=== PATIENT | male | born 1940 | race Hispanic/Latino ===

== ENCOUNTER 2020-02-20 08:04 | Emergency (ER) | payer OTHER ==
--- OUTSIDE RECORDS SUMMARY | 2020-02-20 08:15 | XMS REPORT | Continuity of Care Document ---
:1940 Author Organization [facility] t Address [address] [place] [address] Care Team Providers Name Role Phone Lele Goodwin Attending Clinician Problems This patient has no known problems. Allergies, Adverse Reactions, Alerts Allergy Allergy Status Severity Reaction(s) Onset Inactive Treating Comm ents Source Name Type Date Date Clinician Hydrocor Allergy Active Mild Itching [facility] tisone to da substanc [facility] e Group Social History Smoking Status Start Date Stop Date Source Former Smoker [facility] Medications Ordered Filled Start Stop Current Ordering Indication Dosage Frequency Signature Comments Components Source Medication Medication Date Date Medication? Clinician (SIG) Name Name alprazolam alprazolam No alprazolam [facility] 0.25 mg 0.25 mg 0.25 mg da tablet tablet tablet [facility] amlodipine amlodipine No amlodipine [place] 2.5 mg 2.5 mg 2.5 mg da tablet tablet tablet [facility] fluticasone fluticasone No fluticason [place] propionate propionate e da 50 50 propionate Medical mcg/actuati mcg/actuati 50 G roup on nasal on nasal mcg/actuat spray,suspe spray,suspe ion nasal nsion [place] nsion [place] spray,susp 1 spray 1 spray ension twice a day twice a day [place] 1 by by spray intranasal intranasal twice a route for route for day by 30 days. 30 days. intranasal route for 30 days. Fluzone Fluzone No Fluzone [facility] High-Dose High-Dose High-Dose da Medica l (PF) 180 (PF) 180 (PF) 180 Mariana up mcg/0.5 mL mcg/0.5 mL mcg/0.5 mL intramuscul intramuscul intramuscu ar syringe ar syringe lar syringe hydrochloro hydrochloro No hydrochlor [facility] thiazide 25 thiazide 25 othiazide da mg tablet mg tablet 25 mg Medi mery tablet Group losartan losartan No losartan [facility] 100 mg 100 mg 100 mg da tablet tablet tablet [facility] omeprazole omeprazole No omeprazole [facility] 20 mg 20 mg 20 mg da capsule,del capsule,del capsule,de Medical ayed ayed layed Group release release release rosuvastati rosuvastati No rosuvastat [place] n 20 mg n 20 mg in 20 mg da tablet tablet tablet [facility] Vital Signs Vital Name Observation Time Observation Value Comments Source BP Diastolic 2019-03-25 00:00:00 81 mm[Hg] [facility] Height 2019-03-25 00:00:00 68 [in_i] [facility] BMI (Body Mass 2019-03-25 00:00:00 26.2 kg/m2 [facility] Medical Index) Group BP Systolic 2019-03-25 00:00:00 161 mm[Hg] [facility] Body Weight 2019-03-25 00:00:00 172 [lb_av] [facility] BP Diastolic 2019-03-07 00:00:00 77 mm[Hg] [facility] Height 2019-03-07 00:00:00 68 [in_i] [facility] BMI (Body Mass 2019-03-07 00:00:00 26.2 kg/m2 [facility] Medical Index) Group BP Systolic 2019-03-07 00:00:00 151 mm[Hg] [facility] Body Weight 2019-03-07 00:00:00 172.2 [lb_av] [facility] BP Diastolic 2019-02-10 00:00:00 75 mm[Hg] [facility] Height 2019-02-10 00:00:00 68 [in_i] [facility] BMI (Body Mass 2019-02-10 00:00:00 26.3 kg/m2 [facility] Index) Group BP Systolic 2019-02-10 00:00:00 160 mm[Hg] [facility] Body Weight 2019-02-10 00:00:00 173 [lb_av] [facility] Procedures Procedure Date / Time Performed Performing Clinician Sour e TYMPANOMETRY 2019-03-25 00:00:00 [facility] TYMPANOMETRY 2019-03-07 00:00:00 [facility] TYMPANOMETRY 2019-02-10 00:00:00 [facility] unlisted imaging order 2019-02-10 00:00:00 [facility] Append[facility] Plan of Care Planned Activity Planned Date Details Comments Source Instructions [facility] Encounters Start End Encounter Admission Attending Care Care Encounter Source Date/Time Date/Time Type Type Clinicians Facility Department ID 2020-02-17 2020-02-17 [facility] [id number] 08:53:15 23:59:00 [facility] [id number] [facility] [id number] Specialti [id number] es 809 [place] 2020-02-17 2020-02-17 [facility] [id number] 08:53:14 23:59:00 [facility] [id number] Surgical [id number] Specialti [id number] es 809 [place] 2020-02-17 2020-02-17 [facility] [id number] 08:11:49 08:26:49 [facility] [id number] Surgical [id number] Specialti [id number] es 198 [place] 2019-03-25 2019-03-25 Yoko BLANCHARD [place] - [id number] [facility] 00:00:00 00:00:00 MD Chiara: [facility] [address] [place] [address] Group [place], [place] - [address], [place] [address] , Ph. 2019-03-07 2019-03-07 Yoko ROSARIO [place] - [id number] [facility] 00:00:00 00:00:00 MD Chiara: [address] [place], [place] - [address] [place] [place] [address] , Ph. 2019-02-10 2019-02-10 Yoko BLANCHARD [place] - [id number] [facility] 00:00:00 00:00:00 MD Chiara: [address], [place] - [address], [facility] [place] [address] , Ph. Results Test Description Test Time Test Comments Results Result Comments Source tympanogram 2019-03-07 14:40:58 Test Item Value Reference Range Interpretation Comme nts Right (test code = Right) Type C Peak is on Left Left (test code = Left) Type C Peak is on Left [facility]2019-09-30 14:40:58 Test Item Value Reference Range Interpretation Comments Right (test code = Type C Peak is on Left Right) Left (test code = Left) Type C Peak is on Left [facility]2019-09-05 09:31:46 Test Item Value Reference Range Interpretation Comments Right (test code = Type A Normal Right) Left (test code = Type C Peak is on Left Left) [facility]2019-09-05 09:31:46 Test Item Value Reference Range Interpretation Comments Right (test code = Type A Normal Right) Left (test code = Type C Peak is on Left Left) [facility]
--- OUTSIDE RECORDS SUMMARY | 2020-02-20 08:16 | XMS REPORT | Summary of Care ---
:1940 Author Organization [facility] - Health Address [address] [place] [address] Care Team Providers Name Role Phone BintarisAngelica moya Primary Care Provider [phone] Encounter Details Date Type Department Care Team Description 01/13/2020 Orders Only [facility] Doctor Unassigned, No 301 [facility] vard Name [phone] [place] [address] Allergies Active Allergy Reactions Severity Noted Date Comments Dye Hives, Itching 08/16/2015 Contrast dye Hydrocodone Hives, Itching 08/16/2015 Lisinopril Cough 09/03/2015 Iodine And Iodide Containing Products Hives 03/2016 documented as of this encounter (statuses as of 01/26/2020) Medications Medication Sig Dispensed Refills Start Date End Date Status omeprazole (PRILOSEC) 20 0 07/04/2015 Active mg capsule losartan 50 mg tablet Take 25 mg by 0 Active mouth daily. aspirin 325 mg tablet Take 325 mg by 0 Active mouth daily. DOCOSAHEXANOIC ACID/EPA Take by mouth. 0 Active (FISH OIL ORAL) levoFLOXacin 250 mg Take 500 mg by 0 Active tablet mouth every 24 (twenty-four) hours. vitamin C with kathleen hips Take 1,000 mg 0 Active (VITAMIN C) 1,000 mg by mouth daily. tablet amLODIPine 2.5 mg tablet Take 2.5 mg by 0 Active mouth daily. rosuvastatin (CRESTOR) 20 Take 20 mg by 0 Active mg tablet mouth at bedtime. documented as of this encounter (statuses as of 01/26/2020) Active Problems Problem Noted Date Chest pain 07/08/2018 Finger pain 08/16/2015 Overview: Lt, Rt. hand documented as of this encounter (statuses as of 01/26/2020) Social History Tobacco Use Types Packs/Day Years Used Date Never Smoker Smokeless Tobacco: Never Used Alcohol Use Drinks/Week oz/Week Comments Not Asked 0 Standard drinks or equivalent 0.0 Sex Assigned at Date Recorded Not on file documented as of this encounter Last Filed Vital Signs Not on filedocumented in this encounter Plan of Treatment Date Type Specialty Care Team Description 01/26/2020 Office Visit Orthopedic Surgery Marbin Contreras MD [address] [phone] Health Maintenance Due Date Last Done Comments DTaP,Tdap,and Td Vaccines (1 - Tdap) 1960 Zoster Recombinant Vaccine (SHINGRIX) (1 1991 of 2) Medicare Wellness Visit 2006 PNEUMOCOCCAL VACCINES 65+ (1 of 1 - 2006 PPSV23) INFLUENZA VACCINE (#1) 2020 02/11/2019, 03/22/2015 Depression Screening 09/28/2020 09/29/2019 documented as of this encounter Implants Implanted Type Area Certified Physician'S Assistant Device Shelf Model / Serial Identifier Expiration / Lot Date Lens, Bobby #Sn60wf - [id number] LENS Right: Bobby 04/07/2024 SN60WF / Implanted: Qty: 1 on 08/11/2019 by Roberto Carlos Moore MD at [facility] 1 [id number] / N/A Lens, Bobby #Sn60wf 21.5d - [id number] LENS Left: Eye Bobby 03/07/2024 SN60WF 21.5D / Implanted: Qty: 1 on 09/29/2019 by Roberto Carlos Moore MD at [facility] 7 [id number] / 0 documented as of this encounter Procedures Procedure Name Priority Date/Time Associated Diagnosis Comme nts REFERRAL- Routine 01/13/2020 12:01 AM CDT REQUEST/RESPONSE documented in this encounter Results Not on filedocumented in this encounter Insurance Payer Benefit Plan / Subscriber ID Effective Dates Phone Addre ss Type Group MEDICARE MEDICARE PART A [id number] 2006-Thu [phone] Medicare & B nt 82 [id number] [place] [id number] HUMANA HUMANA [id number] 2019-Thu Aguero mnity INDEMNITY nt documented as of this encounter
--- OUTSIDE RECORDS SUMMARY | 2020-02-20 08:16 | XMS REPORT | Summary of Care ---
:1940 Author Organization [facility] Address [address] [place] [address] Care Team Providers Name Role Phone Angelica Luna Primary Care Provider [phone] Reason for Visit Reason Comments Follow-up Mri results bilateral hands Encounter Details Date Type Department Care Team Description 01/26/2020 Office Visit [facility] Orthopaedic Sergio Contreras ilateral carpal Surgery- Leonel Robins MD tunnel syndrome [address], [address] (Primary Dx) [address] [place] [address] [place], [place] [phone] Allergies Active Allergy Reactions Severity Noted Date Comments Dye Hives, Itching 08/16/2015 Contrast dye Hydrocodone Hives, Itching 08/16/2015 Lisinopril Cough 09/03/2015 Iodine And Iodide Containing Products Hives 03/2016 documented as of this encounter (statuses as of 01/27/2020) Medications Medication Sig Dispensed Refills Start Date [...] as of this encounter (statuses as of 01/27/2020) Active Problems Problem Noted Date Chest pain 07/08/2018 Finger pain 08/16/2015 Overview: Lt, Rt. hand documented as of this encounter (statuses as of 01/27/2020) Social History Tobacco Use Types Packs/Day Years Used Date Never Smoker Smokeless Tobacco: Never Used Alcohol Use Drinks/Week oz/Week Comments Not Asked 0 Standard drinks or equivalent 0.0 Sex Assigned at Date Recorded Not on file documented as of this encounter Last Filed Vital Signs Vital Sign Reading Time Taken Comments Blood Pressure 157/53 01/26/2020 2:28 PM CDT Pulse 66 01/26/2020 2:28 PM CDT Temperature - - Respiratory Rate - - Oxygen Saturation - - Inhaled Oxygen Concentration - - Weight 74.8 kg (165 lb) 01/26/2020 2:28 PM CDT Height 172.7 cm (5' 8") 01/26/2020 2:28 PM CDT Body Mass Index 25.09 01/26/2020 2:28 PM CDT documented in this encounter Progress Notes Anna Seymour, LIZBETH - 01/26/2020 2:30 PM CDT Cc: Chief Complaint Patient presents with Follow-up Mri results bilateral hands Ayaz Brunson Jr. is a 79 year old male. Patient here for EMG results of the BUE. Allergies Ayaz is allergic to dye; hydrocodone; lisinopril; and shellfish [iodine and iodide containing products]. Medications Outpatient Medications Prior to Visit Medication Sig Dispense Refill amLODIPine 2.5 mg tablet Take 2.5 mg by mouth daily. levoFLOXacin 250 mg tablet Take 500 mg by mouth every 24 (twenty-four) hours. rosuvastatin (CRESTOR) 20 mg tablet Take 20 mg by mouth at bedtime. vitamin C with kathleen hips (VITAMIN C) 1,000 mg tablet Take 1,000 mg by mouth daily. aspirin 325 mg tablet Take 325 mg by mouth daily. DOCOSAHEXANOIC ACID/EPA (FISH OIL ORAL) Take by mouth. losartan 50 mg tablet Take 25 mg by mouth daily. omeprazole (PRILOSEC) 20 mg capsule No facility-administered medications prior to visit. Histories Past Medical History: Diagnosis Date Finger pain 08/16/2015 Lt, Rt. hand Heart disorder Hyperlipidemia Past Surgical History: Procedure Laterality Date APPENDECTOMY HERNIA REPAIR JOINT SURGERY Bilateral RCR PHACOEMULSIFICATION OF CATARACT WITH INTRAOCULAR LENS IMPLANT Right 08/11/2019 Surgeon: Roberto Carlos Moore MD; Location: [facility] PHACOEMULSIFICATION OF CATARACT WITH INTRAOCULAR LENS IMPLANT Left 09/29/2019 Surgeon: Roberto Carlos Moore MD; Location: [facility] OR [facility] [place] ANESTH,OPEN HEART SURGERY+PUMP SPINE SURGERY Social History Socioeconomic History Marital status: Spouse name: Not on file Number of children: Not on file Years of education: Not on file Highest education level: Not on file Occupational History Not on file Social Needs Financial resource strain: Not on file Food insecurity Worry: Not on file Inability: Not on file Transportation needs Medical: Not on file Non-medical: Not on file Tobacco Use Smoking status: Never Smoker Smokeless tobacco: Never Used Substance and Sexual Activity Alcohol use: Not on file Drug use: Not on file Sexual activity: Not on file Lifestyle Physical activity Days per week: Not on file Minutes per session: Not on file Stress: Not on file Relationships Social connections Talks on phone: Not on file Gets together: Not on file Attends restoration service: Not on file Active member of club or organization: Not on file Attends meetings of clubs or organizations: Not on file Relationship status: Not on file Intimate partner violence Fear of current or ex partner: Not on file Emotionally abused: Not on file Physically abused: Not on file Forced sexual activity: Not on file Other Topics Concern Not on file Social History Narrative Not on file Family History Problem Relation Age of Onset Heart Mother Heart Father Heart Brother Review of Systems Constitutional: Negative. HENT: Negative. Eyes: Negative. Respiratory: Negative. Breasts: Negative. Cardiovascular: Negative. Gastrointestinal: Negative. Genitourinary: Negative. Musculoskeletal: Positive for myalgias. Skin: Negative. Neurological: Positive for weakness and numbness. Vital Signs BP (!) 157/53 | Pulse 66 | Ht 68" (172.7 cm) | Wt 74.8 kg (165 lb) | BMI 25.09 kg/m Physical Exam Vitals signs and nursing note reviewed. Musculoskeletal: Comments: General: Well-developed well-nourished oriented to person place and time HEENT normocephalic atraumatic atraumatic pupils equal round reactive to light extraocular muscles intact Cervical thoracic and lumbar spine without focal deficit normal kyphosis and lordosis Chest clear to auscultation and percussion Cardiovascular regular rate and rhythm without gallop rub or murmur soft without organomegaly Normal bowel sounds Neurologic: Focal myotome or dermatomal deficits Vascular: Intact symmetrical bilateral upper and lower extremities Skin without stasis varicosities or breakdown Extremities without cyanosis clubbing or edema Lymphatics no peripheral lymphedema Psych normal mood and affect. Neurovascular function is intact. To include brisk capillary refill warm pink skin active motor function and sensory function intact. Assessment/Plan Bilateral Carpal Tunnel Syndrome Right carpal tunnel release to be performed at [facility] on 02/08/2020. I have discussed the patient's physical exam and reviewed their x- rays/imaging/results with them in detail. Discussed surgery at great lengths regarding risks and benefits. Explained as with any procedure there may be pain, damage to nerve and vascular structures, fat embolism, need for additional surgery, failure of procedure to relieve pain. We spoke of recovery time, expected outcome, possible restrictions and anticipation return to work date as well as possible rehabilitation if needed or required after the surgery. All questions have been answered. Condition and plans were discussed with patient, who expressed understanding and is agreeable to theplan. documented in this encounter Plan of Treatment Health Maintenance Due Date Last Done Comments DTaP,Tdap,and Td Vaccines (1 - Tdap) 1960 Zoster Recombinant Vaccine (SHINGRIX) (1 1991 of 2) Medicare Wellness Visit 2006 PNEUMOCOCCAL VACCINES 65+ (1 of 1 - 2006 PPSV23) INFLUENZA VACCINE (#1) 2020 02/11/2019, 03/22/2015 Depression Screening 09/28/2020 09/29/2019 documented as of this encounter Implants Implanted Type Area Menhaden Vessel Pilot Device Shelf Model / Serial Identifier Expiration / Lot Date Lens, Bobby #Sn60wf - [id number] LENS Right: Bobby 04/07/2024 SN60WF / Implanted: Qty: 1 on 08/11/2019 by Roberto Carlos Moore MD at [facility] 1 [id number] / N/A Lens, Bobby #Sn60wf 21.5d - [id number] LENS Left: Eye Bobby 03/07/2024 SN60WF 21.5D / Implanted: Qty: 1 on 09/29/2019 by Roberto Carlos Moore MD at [facility] 8 [id number] / 0 documented as of this encounter Results Not on filedocumented in this encounter Visit Diagnoses Diagnosis Bilateral carpal tunnel syndrome - Prima ry Carpal tunnel syndrome documented in this encounter Insurance Payer Benefit Plan / Subscriber ID Effective Dates Phone Addre ss Type Group MEDICARE MEDICARE PART A [id number] 2006-Thu [phone] Medicare & B nt [id number] [place] [address] HUMANA HUMANA [id number] 2019-Thu Aguero mnity INDEMNITY nt documented as of this encounter
--- OUTSIDE RECORDS SUMMARY | 2020-02-20 08:16 | XMS REPORT | Summary of Care ---
:1940 Author Organization [facility] Address [address] [place] [address] Care Team Providers Name Role Phone Angelica Luna Primary Care Provider [phone] Reason for Visit Reason Comments Follow-up Mri results bilateral hands Encounter Details Date Type Department Care Team Description 01/26/2020 Office Visit [facility] Orthopaedic Sergio Contreras ilateral carpal Surgery- Leonel Robins MD tunnel syndrome [address], [address] (Primary Dx) [place] [address] [place] [address] [place], [place] [phone] Allergies Active Allergy Reactions Severity Noted Date [...] presents with Follow-up Mri results bilateral hands Aayz Brunson Jr. is a 79 year old [...] 08/11/2019 Surgeon: Roberto Carlos Moore MD; Location: [facility] PHACOEMULSIFICATION OF CATARACT WITH INTRAOCULAR LENS IMPLANT Left 09/29/2019 Surgeon: Roberto Carlos Moore MD; Location: [facility] [place] ANESTH,OPEN HEART SURGERY+PUMP SPINE SURGERY Social History [...] file Gets together: Not on file Attends taoist service: Not on file Active member of [...] carpal tunnel release to be performed at [facility] [employer] [facility] on 02/08/2020. I have discussed the patient's [...] of this encounter Implants Implanted Type Area Senior Operator Device Shelf Model / Serial Identifier Expiration / Lot Date Lens, Bobby #Sn60wf - [id number] LENS Right: Bobby 04/07/2024 SN60WF / Implanted: Qty: 1 on 08/11/2019 by Roberto Carlos Moore MD at [facility] 1 [id number] / N/A Lens, Bobby #Sn60wf 21.5d - [id number] LENS Left: Eye Bobby 03/07/2024 SN60WF 21.5D / Implanted: Qty: 1 on 09/29/2019 by Roberto Carlos Moore MD at [facility] 8 [id number] / 0 documented as of this encounter Results Not on filedocumented in this encounter Visit Diagnoses Diagnosis Bilateral carpal tunnel syndrome - Prima ry Carpal tunnel syndrome documented in this encounter Insurance Payer Benefit Plan / Subscriber ID Effective Dates Phone Addre ss Type Group MEDICARE MEDICARE PART A [id number] 2006-Thu [phone] Medicare & B nt [address] [id number] [place] [address] HUMANA HUMANA [id number] 2019-Thu Aguero mnity INDEMNITY nt documented as of this encounter
--- OUTSIDE RECORDS SUMMARY | 2020-02-20 08:17 | XMS REPORT | Summary of Care ---
:1940 Author Organization [facility] - Health Address [address] [place] [address] Care Team Providers Name Role Phone BintarisAngelica moya Primary Care Provider [phone] Encounter Details Date Type Department Care Team Description 01/26/2020 Orders Only [facility] Doctor Unassigned, No 301 [facility] vard Name [phone] [place] [address] Allergies Active Allergy Reactions Severity Noted Date Comments Dye Hives, Itching 08/16/2015 Contrast dye Hydrocodone Hives, Itching 08/16/2015 Lisinopril Cough 09/03/2015 Iodine And Iodide Containing Products Hives 03/2016 documented as of this encounter (statuses as of 02/08/2020) Medications Medication Sig Dispensed Refills Start Date [...] as of this encounter (statuses as of 02/08/2020) Active Problems Problem Noted Date Chest pain 07/08/2018 Finger pain 08/16/2015 Overview: Lt, Rt. hand documented as of this encounter (statuses as of 02/08/2020) Social History Tobacco Use Types Packs/Day Years Used Date Never Smoker Smokeless Tobacco: Never Used Alcohol Use Drinks/Week oz/Week Comments Not Asked 0 Standard drinks or equivalent 0.0 Sex Assigned at Date Recorded Not on file COVID-19 Exposure Response Date Recorded In the last month, have you been in contact with No / Unsure 01/30/2020 8:40 AM CDT someone who was confirmed or suspected to have Coronavirus / COVID-19? documented as of this encounter Last Filed Vital Signs Not on filedocumented in this encounter Plan of Treatment Health Maintenance Due Date Last Done Comments DTaP,Tdap,and Td Vaccines (1 - Tdap) 1960 Zoster Recombinant Vaccine (SHINGRIX) (1 1991 of 2) Medicare Wellness Visit 2006 PNEUMOCOCCAL VACCINES 65+ (1 of 1 - 2006 PPSV23) INFLUENZA VACCINE (#1) 2020 02/11/2019, 03/22/2015 Depression Screening 09/28/2020 09/29/2019 documented as of this encounter Implants Implanted Type Area Snow Plow Tractor Operator Device Shelf Model / Serial Identifier Expiration / Lot Date Lens, Bobby #Sn60wf - [id number] LENS Right: Bobby 04/07/2024 SN60WF / Implanted: Qty: 1 on 08/11/2019 by Roberto Carlos Moore MD at [facility] Eye 1 [id number] / N/A Lens, Bobby #Sn60wf 21.5d - [id number] LENS Left: Eye Bobby 03/07/2024 SN60WF 21.5D / Implanted: Qty: 1 on 09/29/2019 by Roberto Carlos Moore MD at [facility] 7 [id number] / 0 documented as of this encounter Procedures Procedure Name Priority Date/Time Associated Diagnosis Comme nts DSU PRE-OP Routine 01/26/2020 12:01 AM CDT documented in this encounter Results Not on filedocumented in this encounter Insurance Payer Benefit Plan / Subscriber ID Effective Dates Phone Addre ss Type Group MEDICARE MEDICARE PART A [id number] 2006-Thu [phone] [address] Medicare & B nt 82 [id number] [place] [phone] HUMANA HUMANA [id number] 2019-Thu Aguero mnity INDEMNITY nt documented as of this encounter
--- OUTSIDE RECORDS SUMMARY | 2020-02-20 08:17 | XMS REPORT | Summary of Care ---
:[address] [facility] Address [address] [place] [address] Care Team Providers Name Role Phone BrewerChapoHendricksonAngelica moya Primary Care Provider [phone] Reason for Visit Reason Comments LAB WORK Encounter Details Date Type Department Care Team Description 01/30/2020 Learning Support Services Director Visit [facility] Sergio Contreras MD [address] [facility] [place] [address] [place] [address] Pre-op exam (Primary Professional Office Pob, Adc Lab Main Dx) Building Phlebotomy Lab Professional Office Building [address] [place] [address] , [address] [place] [address] Allergies Active Allergy Reactions Severity Noted Date Comments Dye Hives, Itching 08/16/2015 Contrast dye Hydrocodone Hives, Itching 08/16/2015 Lisinopril Cough 09/03/2015 Iodine And Iodide Containing Products Hives 03/2016 documented as of this encounter (statuses as of 01/30/2020) Medications Medication Sig Dispensed Refills Start Date [...] as of this encounter (statuses as of 01/30/2020) Active Problems Problem Noted Date Chest pain 07/08/2018 Finger pain 08/16/2015 Overview: Lt, Rt. hand documented as of this encounter (statuses as of 01/30/2020) Social History Tobacco Use Types Packs/Day Years [...] Signs Not on filedocumented in this encounter Nursing Notes Jennifer Coto - 01/30/2020 8:45 AM CDT Venipuncture collection performed by clean technique on the left anticubitus. Total of 1 attempts were made. Slight pressure and a bandage/dressing were applied to the site(s). The patient experienced no complications. The following specimens were processed according to instructions and sent to [facility] laboratories per lab order on today: LT BLUE SST 1 RED LAV 1 PPT DK GREEN (LiHep) DK GREEN (SodH) KENDRICK DK BLUE (K2) DK BLUE (S) ACD Blood Culture NIPT/NTD documented in this encounter Plan of Treatment Name Type Priority Associated Diagnoses Order S chedule CBC WITH DIFF LAB Routine Pre-op exam Expected: 01/07, Expires: 2020 BASIC METABOLIC PANEL (NA, LAB Routine Pre-op exam E xpected: 01/30/2020, K, CL, CO2, GLUCOSE, BUN, Ex jose: 01/29/2021 CREATININE, CA) Health Maintenance Due Date Last Done Comments DTaP,Tdap,and Td Vaccines (1 - Tdap) 1960 Zoster Recombinant Vaccine (SHINGRIX) (1 1991 of 2) Medicare Wellness Visit 2006 PNEUMOCOCCAL VACCINES 65+ (1 of 1 - 2006 PPSV23) INFLUENZA VACCINE (#1) 2020 02/11/2019, 03/22/2015 Depression Screening 09/28/2020 09/29/2019 documented as of this encounter Implants Implanted Type Area Small Parts Shaper Operator Device Shelf Model / Serial Identifier Expiration / Lot Date Lens, Bobby #Sn60wf - [id number] LENS Right: Bobby 04/07/2024 SN60WF / Implanted: Qty: 1 on 08/11/2019 by Roberto Carlos Moore MD at [facility] Eye 1 [id number] / N/A Lens, Bobby #Sn60wf 21.5d - [id number] LENS Left: Eye Bobby 03/07/2024 SN60WF 21.5D / Implanted: Qty: 1 on 09/29/2019 by Roberto Carlos Moore MD at [facility] 5 [id number] / 0 documented as of this encounter Results Not on filedocumented in this encounter Visit Diagnoses Diagnosis Pre-op exam - Primary Preoperative examination, unspecified documented in this encounter Insurance Payer Benefit Plan / Subscriber ID Effective Dates Phone Addre ss Type Group MEDICARE MEDICARE PART A [id number] 2006-Prese [phone] Medicare & B nt [id number] JIMBO ERICKSON [phone] HUMANA HUMANA [id number] 2019-Prese Inde mnity INDEMNITY nt documented as of this encounter
--- OUTSIDE RECORDS SUMMARY | 2020-02-20 08:17 | XMS REPORT | Summary of Care ---
:1940 Author Organization [facility] Address [address] [place] [address] Care Team Providers Name Role Phone Angelica Luna Primary Care Provider [phone] Reason for Visit Auth/Cert Status Reason Specialty Diagnoses / Procedures Referred By Coni diaz Referred To Contact Phlebotomy Diagnoses PRE OP Adc Pob Lab Draw Procedures CBC BMP Professional Office Building [address], [address] [place] [address] Phone: Fax: Encounter Details Date Type Department Care Team Description 01/30/2020 Hospital Encounter [facility] Camelia Contreras, Eduardo Sears Radiology [address] [place] [address] [address] [phone] [place] [address] Allergies Active Allergy Reactions Severity Noted Date Comments Dye Hives, Itching 08/16/2015 Contrast dye Hydrocodone Hives, Itching 08/16/2015 Lisinopril Cough 09/03/2015 Iodine And Iodide Containing Products Hives 03/2016 documented as of this encounter (statuses as of 01/31/2020) Medications Medication Sig Dispensed Refills Start Date [...] as of this encounter (statuses as of 01/31/2020) Active Problems Problem Noted Date Chest pain 07/08/2018 Finger pain 08/16/2015 Overview: Lt, Rt. hand documented as of this encounter (statuses as of 01/31/2020) Social History Tobacco Use Types Packs/Day Years [...] of this encounter Implants Implanted Type Area Form Maker Plaster Device Shelf Model / Serial Identifier Expiration / Lot Date Lens, Bobby #Sn60wf - [id number] LENS Right: Bobby 04/07/2024 SN60WF / Implanted: Qty: 1 on 08/11/2019 by Roberto Carlos Moore MD at [facility] Eye 1 [id number] / N/A Lens, Bobby #Sn60wf 21.5d - [id number] LENS Left: Eye Bobby 03/07/2024 SN60WF 21.5D / Implanted: Qty: 1 on 09/29/2019 by Roberto Carlos Moore MD at [facility] 8 [id number] / 0 documented as of this encounter Procedures Procedure Name Priority Date/Time Associated Diagnosis Comme nts EKG-12 LEAD Routine 01/30/2020 9:27 AM CDT XR CHEST 2 VW Routine 01/30/2020 9:13 AM Right carpal tunnel Results for this CDT syndrome procedure are i n the results section. CONSENT/REFUSAL FOR Routine 01/30/2020 8:46 AM DIAGNOSIS AND CDT TREATMENT documented in this encounter Results XR CHEST 2 VW (01/30/2020 9:13 AM CDT) Specimen Narrative Performed At This result has an attachment that is no t available. EXAM: XR CHEST 2 VW PACS/VR/DOSE HISTORY: Right carpal tunnel syndrome COMPARISON: None. FINDINGS: A small amount of pleural fluid separates the visceral from parietal pleura on the left laterally and inferiorly. Adhesions betwee n the cardiac apex and the chest wall elevate the heart and give the impr ession of air beneath it. The heart and great vessels are normal and the ginger gs are otherwise well-expanded and clear. Procedure Note [facility], Radiant Results Inft User - 2019 9:19 AM CDT EXAM: XR CHEST 2 VW HISTORY: Right carpal tunnel syndrome COMPARISON: None. FINDINGS: A small amount of pleural fluid separate s the visceral from parietal pleura on the left laterally and inferiorly. Ad hesions between the cardiac apex and the chest wall elevate the heart and give the impression of air beneath it. The heart and great vessels are norm al and the lungs are otherwise well-expanded and clear. Performing Organization Address City/State/Zipcode Phone Number PACS/VR/DOSE documented in this encounter Visit Diagnoses Diagnosis Right carpal tunnel syndrome Carpal tunnel syndrome documented in this encounter Insurance Payer Benefit Plan / Subscriber ID Effective Dates Phone Addre ss Type Group MEDICARE MEDICARE PART A [id number] 2006-Thu [phone] Medicare & B nt 82 [id number] JIMBO ERICKSON [id number] HUMANA HUMANA [id number] 2019-Thu Aguero mnity INDEMNITY nt documented as of this encounter
--- OUTSIDE RECORDS SUMMARY | 2020-02-20 08:17 | XMS REPORT | Summary of Care ---
:1940 Author Organization [facility] Address [address] [place] [address] Care Team Providers Name Role Phone Angelica Luna Primary Care Provider Encounter Details Date Type Department Care Team Description 02/17/2020 Hospital Encounter [facility] Lele Fairchild [facility] - [facility] Radiology [address], [place] [address] [phone] Allergies Active Allergy Reactions Severity Noted Date Comments Dye Hives, Itching 08/16/2015 Contrast dye Hydrocodone Hives, Itching 08/16/2015 Lisinopril Cough 09/03/2015 Iodine And Iodide Containing Products Hives 03/2016 documented as of this encounter (statuses as of 02/18/2020) Medications Medication Sig Dispensed Refills Start Date [...] as of this encounter (statuses as of 02/18/2020) Active Problems Problem Noted Date Chest pain 07/08/2018 Finger pain 08/16/2015 Overview: Lt, Rt. hand documented as of this encounter (statuses as of 02/18/2020) Social History Tobacco Use Types Packs/Day Years Used Date Never Smoker Smokeless Tobacco: Never Used Alcohol Use Drinks/Week oz/Week Comments Not Asked 0 Standard drinks or equivalent 0.0 Sex Assigned at Date Recorded Not on file COVID-19 Exposure Response Date Recorded In the last month, have you been in contact with No / Unsure 02/17/2020 8:22 AM CDT someone who was confirmed or suspected to have Coronavirus / COVID-19? documented as of this encounter Last Filed Vital Signs Not on filedocumented in this encounter Plan of Treatment Date Type Specialty Care Team Description 02/22/2020 Office Visit Orthopedic Surgery Marbin Contreras MD [address] [place] [address] [phone] Health Maintenance Due Date Last Done Comments DTaP,Tdap,and Td Vaccines (1 - Tdap) 1960 Zoster Recombinant Vaccine (SHINGRIX) (1 1991 of 2) Medicare Wellness Visit 2006 PNEUMOCOCCAL VACCINES 65+ (1 of 1 - 2006 PPSV23) INFLUENZA VACCINE (#1) 2020 02/11/2019, 03/22/2015 Depression Screening 09/28/2020 09/29/2019 documented as of this encounter Implants Implanted Type Area Rn Recruitment Device Shelf Model / Serial Identifier Expiration / Lot Date Lens, Bobby #Sn60wf - [id number] LENS Right: Bobby 04/07/2024 SN60WF / Implanted: Qty: 1 on 08/11/2019 by Roberto Carlos Moore MD at [facility] Eye 1 [id number] / N/A Lens, Bobby #Sn60wf 21.5d - [id number] LENS Left: Eye Bobby 03/07/2024 SN60WF 21.5D / Implanted: Qty: 1 on 09/29/2019 by Roberto Carlos Moore MD at [facility] 8 [id number] / 0 documented as of this encounter Procedures Procedure Name Priority Date/Time Associated Diagnosis Comme nts XR SPINE THORACIC 2 Routine 02/17/2020 8:53 AM Lumbar R esults for this VW CDT radiculopathy, r ight procedure are in Acute abdominal pain the res ults section. documented in this encounter Results XR SPINE THORACIC 2 VW (02/17/2020 8:53 AM CDT) Specimen Narrative Performed At This result has an attachment that is no t available. He has wires from previous thoracic spine surgery over most of the PACS thoracic spine there are some signs of degeneration. Performing Organization Address City/State/Zipcode Phone Number PACS documented in this encounter Visit Diagnoses Diagnosis Lumbar radiculopathy, right Acute abdominal pain Abdominal pain, unspecified site documented in this encounter Insurance Payer Benefit Plan / Subscriber ID Effective Dates Phone Addre ss Type Group MEDICARE MEDICARE PART A [id number] 2006-Thu [phone] Medicare & B nt 82 [id number] JIMBO ERICKSON [phone] HUMANA HUMANA [id number] 2019-Thu Aguero mnity INDEMNITY nt documented as of this encounter
--- OUTSIDE RECORDS SUMMARY | 2020-02-20 08:17 | XMS REPORT | Summary of Care ---
:1940 Author Organization [facility] Address [address] [place] [address] Care Team Providers Name Role Phone Angelica Luna Primary Care Provider [phone] Reason for Visit Reason Comments Follow-up Right leg pain that goes all the way to the abdomen Encounter Details Date Type Department Care Team Description 02/17/2020 Office Visit [facility] Orthopaedic Lele Fairchild S, L umbar radiculopathy, right (Primary Dx); Surgery- [facility] Acute abdominal pain [address], [address] [place] [address] [place] [address] [place], [place] [phone] Allergies Active Allergy Reactions Severity Noted Date Comments Dye Hives, Itching 08/16/2015 Contrast dye Hydrocodone Hives, Itching 08/16/2015 Lisinopril Cough 09/03/2015 Iodine And Iodide Containing Products Hives 03/2016 documented as of this encounter (statuses as of 02/17/2020) Medications Medication Sig Dispensed Refills Start Date [...] 24 (twenty-four) hours. vitamin C with kathleen angelo Take 1,000 mg 0 Active (VITAMIN C) 1,000 mg by mouth daily. tablet amLODIPine 2.5 mg tablet Take 2.5 mg by 0 Active mouth daily. rosuvastatin (CRESTOR) 20 Take 20 mg by 0 Active mg tablet mouth at bedtime. documented as of this encounter (statuses as of 02/17/2020) Active Problems Problem Noted Date Chest pain 07/08/2018 Finger pain 08/16/2015 Overview: Lt, Rt. hand documented as of this encounter (statuses as of 02/17/2020) Social History Tobacco Use Types Packs/Day Years [...] Sign Reading Time Taken Comments Blood Pressure 146/78 02/17/2020 8:27 AM CDT Pulse 69 02/17/2020 8:25 AM CDT Temperature - - Respiratory Rate - - Oxygen Saturation - - Inhaled Oxygen Concentration - - Weight 74.8 kg (165 lb) 02/17/2020 8:25 AM CDT Height - - Body Mass Index 25.09 01/26/2020 2:28 PM CDT documented in this encounter Progress Notes Lele Fairchild S, PAC - 02/17/2020 8:30 AM CDT Cc: Chief Complaint Patient presents with Follow-up Right leg pain that goes all the way to the abdomen Right leg pain that is traveling all the way up to the abdomen Pain started 02/14/2020 Pt does not have films Ayaz Brunson is a 79 year old male. He is having pain in his abdomen of both that the right lower quadrant and right upper quadrant. Burning quality. He has taken Tylenol 3 to try to control the pain but it's not been relieved. He getssharp pains starting just above his ankle and it goes all the way up his leg all the way up to his costophrenic angle in the right proximal abdomen. He also has pain in his right buttocks. He had a fall 4 months ago but he landed on the left side. He's had back surgery twice his first back surgery was performed by Dr. Marc. the last one was performed with Dr. Franklin in [place]. He had 2 levels of disc surgery. He had an appendectomy as an infant. Allergies Ayaz is allergic to dye; hydrocodone; lisinopril; and shellfish [iodine and iodide containing products]. Medications Outpatient Medications Prior to Visit Medication Sig Dispense Refill losartan 50 mg tablet Take 25 mg by mouth daily. amLODIPine 2.5 mg tablet Take 2.5 mg [...] ACID/EPA (FISH OIL ORAL) Take by mouth. omeprazole (PRILOSEC) 20 mg capsule No facility-administered medications prior to visit. Histories Past Medical History: Diagnosis Date Finger pain 08/16/2015 Lt, Rt. hand Heart disorder Hyperlipidemia Past Surgical History: Procedure Laterality Date APPENDECTOMY HERNIA REPAIR JOINT SURGERY Bilateral RCR PHACOEMULSIFICATION OF CATARACT WITH INTRAOCULAR LENS IMPLANT Right 08/11/2019 Surgeon: Roberto Carlos Moore MD; Location: [facility] OR [facility] PHACOEMULSIFICATION OF CATARACT WITH INTRAOCULAR LENS IMPLANT Left 09/29/2019 Surgeon: Roberto Carlos Moore MD; Location: [facility] OR [facility] MA ANESTH,OPEN HEART SURGERY+PUMP SPINE SURGERY Social History [...] file Gets together: Not on file Attends mormon service: Not on file Active member of [...] Gastrointestinal: Negative. Genitourinary: Negative. Musculoskeletal: Positive for joint swelling. Skin: Negative. Neurological: Negative. Psychiatric/Behavioral: Negative. Endocrine: Endocrine negative Vital Signs Wt 165 lb (74.8 kg) | BMI 25.09 kg/m Physical Exam Musculoskeletal: Comments: Physical Exam Constitutional: oriented to person, place, and time. appears well-developed and well-nourished. HENT: Head: Normocephalic and atraumatic. Right Ear: External ear normal. Left Ear: External ear normal. Eyes: Conjunctivae are normal. Neck: Normal range of motion. No strabismus Neck supple. Cardiovascular: Normal rate and regular rhythm. Pulmonary/Chest: Normal respiratory rate equal chest rise and fall in no apparent distress Abdominal: Abdomen nondistended nontender Neurological: alert and oriented to person, place, and time. No asymmetry Skin: Skin is warm and dry. Psychiatric: normal mood and affect. behavior is normal. Judgment and thought content normal. Nursing note and vitals reviewed. Back pain exam Location He has a radiculopathy in his right leg with a straight leg raise of approximately 40 before he has pain in his low back and right leg Strength in the lower extremities 5 over 5 to include extensor hallucis longus foot plantarflexion foot dorsiflexion knee flexion knee extension hip abduction and hip adduction and hip flexion. Deep tendon reflexes +2 over 4 patella bilateral +2 over 4 Achilles bilateral Sensory function intact in the lower extremities He has pain in the right lower quadrant and also pain in the right upper quadrant negative rebound he has a mildly positive Krystina test. Assessment/Plan 1. Lumbar radiculopathy, right 2. Acute abdominal pain Recommend follow-up with his spinal surgeon Dr. Franklin. We discussed that he could be having abdominal pain as well as back pain that could be from an abdominal origin. This could be approached by working up his abdomen first or by working up his spine first he feels that the back and pain going down his leg is the more prominent part of his pain. If his abdominal pain gets worse he develops fever his abdomen gets tight and rigid and painful he will go directly to the emergency room. Called Dr. Franklin's office and asked them to please work him in this morning they are going to. We will send his x-rays burned on a disc with him. He cannot take oral steroids because he gets severe hypertension. documented in this encounter Plan of Treatment Date Type Specialty Care Team Description 02/22/2020 Office Visit Orthopedic Surgery Marbin Contreras MD [address] [place] [address] [phone] Health Maintenance Due Date Last Done Comments DTaP,Tdap,and Td Vaccines (1 - Tdap) 1960 Zoster Recombinant Vaccine (SHINGRIX) (1 1991 of 2) Medicare Wellness Visit 2006 PNEUMOCOCCAL VACCINES 65+ (1 of 1 - 2006 PPSV23) INFLUENZA VACCINE (#1) 2020 02/11/2019, 03/22/2015 Depression Screening 09/28/2020 09/29/2019 documented as of this encounter Implants Implanted Type Area Wax Specialist Device Shelf Model / Serial Identifier Expiration / Lot Date Lens, Bobby #Sn60wf - [id number] LENS Right: Bobby 04/07/2024 SN60WF / Implanted: Qty: 1 on 08/11/2019 by Roberto Carlos Moore MD at [facility] Eye 1 [id number] / N/A Lens, Bobby #Sn60wf 21.5d - [id number] LENS Left: Eye Bobby 03/07/2024 SN60WF 21.5D / Implanted: Qty: 1 on 09/29/2019 by Roberto Carlos Moore MD at [facility] 8 [id number] / 0 documented as of this encounter Results XR SPINE THORACIC 2 VW (02/17/2020 8:53 AM CDT) Specimen Narrative Performed At This result has an attachment that is no t available. He has wires from previous thoracic spine surgery over most of the PACS thoracic spine there are some signs of degeneration. Performing Organization Address City/State/Zipcode Phone Number PACS XR LUMBAR SPINE 2 VW (02/17/2020 8:53 AM CDT) Specimen Narrative Performed At This result has an attachment that is no t available. There are degenerative changes at L5-S1 with signs of lumbar straightening PACS Performing Organization Address City/State/Zipcode Phone Number PACS documented in this encounter Visit Diagnoses Diagnosis Lumbar radiculopathy, right - Primary Acute abdominal pain Abdominal pain, unspecified site documented in this encounter Insurance Payer Benefit Plan / Subscriber ID Effective Dates Phone Addre ss Type Group MEDICARE MEDICARE PART A [id number] 2006-Thu [phone] Medicare & B nt 82 [id number] JIMBO ERICKSON [phone] HUMANA HUMANA [id number] 2019-Thu Indgeovanna mnity INDEMNITY nt documented as of this encounter"
--- OUTSIDE RECORDS SUMMARY | 2020-02-20 08:17 | XMS REPORT | Summary of Care ---
:1940 Author Organization [facility] Address [address] [place] [address] Care Team Providers Name Role Phone BrewerChapoHendricksonAngelica moya Primary Care Provider [phone] Reason for Visit Reason Comments LAB WORK Encounter Details Date Type Department Care Team Description 01/30/2020 Compressor Technician Visit [facility] Sergio Contreras MD [address] [facility] [place] [address] [place] [address] Pre-op exam (Primary Professional Office Pob, Adc Lab Main Dx) Building Phlebotomy Lab Professional Office Building [address] [place] [address] , [address] [place] [address] Allergies Active Allergy Reactions Severity [...] filedocumented in this encounter Plan of Treatment Name [...] of this encounter Implants Implanted Type Area Software Application Tester Device Shelf Model / Serial Identifier Expiration / Lot Date Lens, Bobby #Sn60wf - [id number] LENS Right: Bobby 04/07/2024 SN60WF / Implanted: Qty: 1 on 08/11/2019 by Roberto Carlos Moore MD at [facility] Eye 1 [id number] / N/A Lens, Bobby #Sn60wf 21.5d - [id number] LENS Left: Eye Bobby 03/07/2024 SN60WF 21.5D / Implanted: Qty: 1 on 09/29/2019 by Roberto Carlos Moore MD at [facility] 0 [id number] / 0 documented as of this encounter Results Not on filedocumented in this encounter Visit Diagnoses Diagnosis Pre-op exam - Primary Preoperative examination, unspecified documented in this encounter Insurance Payer Benefit Plan / Subscriber ID Effective Dates Phone Addre ss Type Group MEDICARE MEDICARE PART A [id number] 2006-Prese [phone] Medicare & B nt 82 [id number] JIMBO ERICKSON [id number] HUMANA HUMANA [id number] 2019-Presgeovanna Indgeovanna mnity INDEMNITY nt documented as of this encounter
--- OUTSIDE RECORDS SUMMARY | 2020-02-20 08:17 | XMS REPORT | Summary of Care ---
:1940 Author Organization [facility] Address [address] [place] [address] Care Team Providers Name Role Phone Angelica Luna Primary Care Provider [phone] Reason for Visit Reason Comments Follow-up Right leg pain that goes all the way to the abdomen Encounter Details Date Type Department Care Team Description 02/17/2020 Office Visit [facility] Orthopaedic Lele Fairchild S, L umbar radiculopathy, right (Primary Dx); Surgery- [facility] Acute abdominal pain [address], [address] [place] [address] [place] [address] [place], [place] [phone] Allergies Active Allergy Reactions Severity Noted Date [...] one was performed with Dr. Franklin in [place]. He had 2 levels of disc surgery. [...] 08/11/2019 Surgeon: Roberto Carlos Moore MD; Location: [facility] OR [facility] PHACOEMULSIFICATION OF CATARACT WITH INTRAOCULAR LENS IMPLANT Left 09/29/2019 Surgeon: Roberto Carlos Moore MD; Location: [facility] [place] ANESTH,OPEN HEART SURGERY+PUMP SPINE SURGERY Social History [...] file Gets together: Not on file Attends yazidi service: Not on file Active member of [...] Office Visit Orthopedic Surgery Marbin Contreras MD [address] [place] [address] [phone] Health Maintenance Due Date Last Done Comments DTaP,Tdap,and Td Vaccines (1 - Tdap) 1960 Zoster Recombinant Vaccine (SHINGRIX) (1 1991 of 2) Medicare Wellness Visit 2006 PNEUMOCOCCAL VACCINES 65+ (1 of 1 - 2006 PPSV23) INFLUENZA VACCINE (#1) 2020 02/11/2019, 03/22/2015 Depression Screening 09/28/2020 09/29/2019 documented as of this encounter Implants Implanted Type Area Carver Hand Device Shelf Model / Serial Identifier Expiration / Lot Date Lens, Bobby #Sn60wf - [id number] LENS Right: Bobby 04/07/2024 SN60WF / Implanted: Qty: 1 on 08/11/2019 by Roberto Carlos Moore MD at [facility] Eye 1 [id number] / N/A Lens, Bobby #Sn60wf 21.5d - [id number] LENS Left: Eye Bobby 03/07/2024 SN60WF 21.5D / Implanted: Qty: 1 on 09/29/2019 by Roberto Carlos Moore MD at [facility] 6 [id number] / 0 documented as of this encounter [...] ss Type Group MEDICARE MEDICARE PART A [id number] 2006-Thu [phone] Medicare & B nt [id number] JIMBO ERICKSON [id number] HUMANA HUMANA [id number] 2019-Thu Indgeovanna mnity INDEMNITY nt documented as of this encounter"
--- OUTSIDE RECORDS SUMMARY | 2020-02-20 08:17 | XMS REPORT | Summary of Care ---
:1940 Author Organization [facility] Address [address] [place] [address] Care Team Providers Name Role Phone BrewerChapoHendricksonAngelica moya Primary Care Provider [phone] Reason for Visit Reason Comments LAB WORK Encounter Details Date Type Department Care Team Description 01/30/2020 Census Enumerator Visit [facility] Sergio Contreras MD [address] [facility] [place] [address] [place] [address] Pre-op exam (Primary Professional Office Pob, Adc Lab Main Dx) Building Phlebotomy Lab Professional Office Building [address] [place] [address] , [address] [place] [address] Allergies Active Allergy Reactions Severity [...] of this encounter Implants Implanted Type Area Facility Coordinator Device Shelf Model / Serial Identifier Expiration / Lot Date Lens, Bobby #Sn60wf - [id number] LENS Right: Bobby 04/07/2024 SN60WF / Implanted: Qty: 1 on 08/11/2019 by Roberto Carlos Moore MD at [facility] Eye 1 [id number] / N/A Lens, Bobby #Sn60wf 21.5d - [id number] LENS Left: Eye Bobby 03/07/2024 SN60WF 21.5D / Implanted: Qty: 1 on 09/29/2019 by Roberto Carlos Moore MD at [facility] 0 [id number] / 0 documented as of this encounter Results Not on filedocumented in this encounter Visit Diagnoses Diagnosis Pre-op exam - Primary Preoperative examination, unspecified documented in this encounter Insurance Payer Benefit Plan / Subscriber ID Effective Dates Phone Addre ss Type Group MEDICARE MEDICARE PART A [id number] 2006-Prese [phone] Medicare & B nt [id number] JIBMO ERICKSON [id number] HUMANA HUMANA [id number] 2019-Presgeovanna Indgeovanna mnity INDEMNITY nt documented as of this encounter
--- OUTSIDE RECORDS SUMMARY | 2020-02-20 08:18 | XMS REPORT | Summary of Care ---
:1940 Author Organization [facility] Address [address] [place] [address] Care Team Providers Name Role Phone Angelica Luna Primary Care Provider Encounter Details Date Type Department Care Team Description 02/17/2020 Hospital Encounter [facility] Lele Fairchild [facility] Orthopedics - PAC Radiology [address], [place] [address] [phone] Allergies Active Allergy Reactions Severity Noted Date [...] Office Visit Orthopedic Surgery Marbin Contreras MD [address] [place] [address] [phone] Health Maintenance Due Date Last Done Comments DTaP,Tdap,and Td Vaccines (1 - Tdap) 1960 Zoster Recombinant Vaccine (SHINGRIX) (1 1991 of 2) Medicare Wellness Visit 2006 PNEUMOCOCCAL VACCINES 65+ (1 of 1 - 2006 PPSV23) INFLUENZA VACCINE (#1) 2020 02/11/2019, 03/22/2015 Depression Screening 09/28/2020 09/29/2019 documented as of this encounter Implants Implanted Type Area Data Lead Device Shelf Model / Serial Identifier Expiration / Lot Date Lens, Bobby #Sn60wf - [id number] LENS Right: Bobby 04/07/2024 SN60WF / Implanted: Qty: 1 on 08/11/2019 by Roberto Carlos Moore MD at [facility] Eye 1 [id number] / N/A Lens, Bobby #Sn60wf 21.5d - [id number] LENS Left: Eye Bobby 03/07/2024 SN60WF 21.5D / Implanted: Qty: 1 on 09/29/2019 by Roberto Carlos Moore MD at [facility] 5 [id number] / 0 documented as of this encounter Procedures Procedure Name Priority Date/Time Associated Diagnosis Comme nts XR LUMBAR SPINE 2 Routine 02/17/2020 8:53 AM Lumbar Res ults for this VW CDT radiculopathy, r ight procedure are in Acute abdominal pain the res ults section. documented in this encounter Results XR LUMBAR SPINE 2 VW (02/17/2020 8:53 [...] ss Type Group MEDICARE MEDICARE PART A [id number] 2006-Prese [phone] Medicare & B nt 82 [id number] JIMBO ERICKSON [phone] HUMANA HUMANA [id number] 2019-Prese Inde mnity INDEMNITY nt documented as of this encounter
[2020-02-20] MEDS ORDERED: VALACYCLOVIR 500 MG TAB ONE (10:01)
[2020-02-20] MEDS ORDERED: HYDROCODONE/APAP 10/325 TAB ONE (10:01)
--- NOTE | 2020-02-20 10:13 | EDPHYS ---
Physician Documentation [facility] Name: Ayaz Brunson Jr Age: 79 yrs Sex: Male : 1940 Arrival Date: 02/20/2020 Time: 08:08 Bed 18 Private MD: ED Physician Angel Molina HPI: 02/19 09:58 This 79 yrs old Male presents to ER via Ambulatory with complaints of Shingles.pm1 09:58 Onset: The symptoms/episode began/occurred 2 day(s) ago. pm1 09:58 The rash is located on the right gluteus rozina and right leg. The rash can be pm1 described as vesicular. Associated signs and symptoms: Pertinent positives: Pain Pertinent negatives: fever. Severity of symptoms: in the emergency department the symptoms are worse. Treatment given at home: None. The patient has not experienced similar symptoms in the past. The patient has not recently seen a physician. Historical: - Allergies: 08:28 Iodinated Contrast Media - IV Dye; iw 08:28 steroid shot (elevated BP); iw 08:28 SHELLFISH; iw 10:00 Arnett (itching); aa5 - Home Meds: 08:28 omeprazole 20 mg Oral cpDR 1 cap once daily [Active]; rosuvastatin 20 mg oral tab 1 tab iw once daily [Active]; losartan 100 mg oral tab 1 tab once daily [Active]; aspirin 325 mg Oral tab 1 tab once daily [Active]; - PSHx: 08:28 triple bypass; Hernia repair; Appendectomy; back surgery; iw - Social history:: Smoking status: Patient denies any tobacco usage or history of. ROS: 09:58 Constitutional: Negative for fever, chills, and weight loss, Cardiovascular: Negative pm1 for chest pain, palpitations, and edema, Respiratory: Negative for shortness of breath, cough, wheezing, and pleuritic chest pain, Abdomen/GI: Negative for abdominal pain, nausea, vomiting, diarrhea, and constipation, Back: Negative for injury and pain, MS/Extremity: Negative for injury and deformity. 09:58 Neuro: Negative for headache, weakness, numbness, tingling, and seizure. 09:58 Skin: Positive for rash. Exam: 09:58 Constitutional: This is a well developed, well nourished patient who is awake, alert, pm1 and in no acute distress. Head/Face: Normocephalic, atraumatic. 09:58 Back: No spinal tenderness. No costovertebral tenderness. Full range of motion. 09:58 MS/ Extremity: Pulses equal, no cyanosis. Neurovascular intact. Full, normal range of motion. 09:58 Cardiovascular: Exam negative for acute changes, Rate: normal, Rhythm: regular, Pulses: no pulse deficits are appreciated. 09:58 Respiratory: Exam negative for acute changes, respiratory distress, shortness of breath. 09:58 Skin: Appearance: normal except for affected area, consistent with zoster, on the right acosta and right gluteus rozina. 09:58 Neuro: Exam negative for acute changes, Orientation: is normal, Mentation: is normal, Motor: is normal, moves all fours, Gait: is steady, at a normal pace, without difficulty. Vital Signs: 08:23 BP 136 / 74; Pulse 76; Resp 16; Temp 98.2; Pulse Ox 100% on R/A; Weight 74.84 kg; iw Height 5 ft. 8 in. (172.72 cm); 08:23 Body Mass Index 25.09 (74.84 kg, 172.72 cm) iw MDM: 09:06 Patient medically screened. pm1 10:09 Data reviewed: vital signs. Data interpreted: Pulse oximetry: on room air is 100 %. pm1 Interpretation: normal. 10:09 Counseling: I had a detailed discussion with the patient and/or guardian regarding: the pm1 historical points, exam findings, and any diagnostic results supporting the discharge/admit diagnosis, the need for outpatient follow up, a family practitioner. Administered Medications: 09:55 Drug: Valtrex 1000 mg Route: PO; aa5 10:40 Follow up: Response: No adverse reaction aa5 10:04 Not Given (pt reports itching with norco): Arnett 10 mg-325 mg 1 tabs PO once; RASS on aa5 ADMIN: Combtv4, Very Agttd3, Agttd2, Rstlss1, AlertClm0, Drwsy-1, Lt Sdtn-2, Mod Sdtn-3, Dp Sdtn-4, UnArsble-5 10:08 Drug: morphine 4 mg Route: IM; Site: left deltoid; aa5 10:40 Follow up: Response: No adverse reaction aa5 10:08 Drug: Zofran (Ondansetron) 4 mg Route: PO; aa5 10:40 Follow up: Response: No adverse reaction aa5 Disposition: 02/20 08:16 Co-signature as Attending Physician, Angel Molina MD I agree with the assessment and plan of care. Disposition: 02/20/20 10:13 Discharged to Home. Impression: Zoster [herpes zoster]. - Condition is Stable. - Discharge Instructions: Shingles. - Prescriptions for Tylenol- Codeine #3 300-30 mg Oral Tablet - take 2 tablets by ORAL route every 6 hours As needed; 20 tablet. Valtrex 1 g Oral Tablet - take 1 tablet by ORAL route every 8 hours for 7 days; 21 tablet. - Medication Reconciliation Form, Thank You Letter, Antibiotic Education, Prescription Opioid Use form. - Follow up: Emergency Department; When: As needed; Reason: Worsening of condition. Follow up: Private Physician; When: 2 - 3 days; Reason: Recheck today's complaints, Continuance of care, Re-evaluation by your physician. - Problem is new. - Symptoms have improved. Signatures: Angel Molina MD MD cha Williams, Irene, RN RN iw Melyssa Pino RN RN aa5 Doug Armendariz NP WELD FITTER pm1 Corrections: (The following items were deleted from the chart) 02/19 10:44 10:13 02/20/2020 10:13 Discharged to Home. Impression: Zoster [herpes zoster]. aa5 Condition is Stable. Forms are Medication Reconciliation Form, Thank You Letter, Antibiotic Education, Prescription Opioid Use. Follow up: Emergency Department; When: As needed; Reason: Worsening of condition. Follow up: Private Physician; When: 2 - 3 days; Reason: Recheck today's complaints, Continuance of care, Re-evaluation by your physician. Problem is new. Symptoms have improved. pm1
--- NOTE | 2020-02-20 10:13 | ER ---
Nurse's Notes [facility] Name: Ayaz Brunson Jr Age: 79 yrs Sex: Male : 1940 Arrival Date: 02/20/2020 Time: 08:08 Bed 18 Private MD: Diagnosis: Zoster [herpes zoster] Presentation: 02/19 08:23 Chief complaint: Patient states: pain up right leg started last Thursday, then noticed iw rash on right foot X 2 days ago, also noted rash on right buttock. Coronavirus screen: At this time, the client does not indicate any symptoms associated with coronavirus-19. Ebola Screen: Patient negative for fever greater than or equal to 101.5 degrees Fahrenheit, and additional compatible Ebola Virus Disease symptoms Patient denies exposure to infectious person. Patient denies travel to an Ebola-affected area in the 21 days before illness onset. No symptoms or risks identified at this time. Initial Sepsis Screen: Does the patient meet any 2 criteria? No. Patient's initial sepsis screen is negative. Does the patient have a suspected source of infection? No. Patient's initial sepsis screen is negative. Risk Assessment: Do you want to hurt yourself or someone else? Patient reports no desire to harm self or others. Onset of symptoms was February 07, 2020. 08:23 Method Of Arrival: Ambulatory iw 08:23 Acuity: DOUGLAS 4 iw Historical: - Allergies: 08:28 Iodinated Contrast Media - IV Dye; iw 08:28 steroid shot (elevated BP); iw 08:28 SHELLFISH; iw 10:00 [place] (itching); aa5 - Home Meds: 08:28 omeprazole 20 mg Oral cpDR 1 cap once daily [Active]; rosuvastatin 20 mg oral tab 1 tab iw once daily [Active]; losartan 100 mg oral tab 1 tab once daily [Active]; aspirin 325 mg Oral tab 1 tab once daily [Active]; - PSHx: 08:28 triple bypass; Hernia repair; Appendectomy; back surgery; iw - Social history:: Smoking status: Patient denies any tobacco usage or history of. Screenin:15 Abuse screen: Denies threats or abuse. Nutritional screening: No deficits noted. aa5 Tuberculosis screening: No symptoms or risk factors identified. Fall Risk None identified. Assessment: 09:15 General: Appears uncomfortable, Behavior is calm, cooperative. Pain: Complains of pain aa5 in lumbar area and right leg Pain radiates to right side of chest, right side of abdomen Pain currently is 9 out of 10 on a pain scale. Quality of pain is described as burning, stinging, Is continuous. Neuro: Level of Consciousness is awake, alert, obeys commands, Oriented to person, place, time, situation. Cardiovascular: Heart tones S1 S2 present Rhythm is regular. Respiratory: Airway is patent Respiratory effort is even, unlabored, Respiratory pattern is regular, symmetrical. GI: No deficits noted. : No deficits noted. EENT: No deficits noted. Derm: Skin is pink, warm \T\ dry. Rash noted that is vesicular, on right foot. Musculoskeletal: Range of motion: intact in all extremities. 09:55 Reassessment: Patient is alert, oriented x 3, equal unlabored respirations, skin aa5 warm/dry/pink. Pt reports he gets itching with hydrocodone and would prefer an IM pain medication, PNEUMATIC PRESS HAND was notified. . 10:40 Reassessment: Patient is alert, oriented x 3, equal unlabored respirations, skin aa5 warm/dry/pink. Patient states feeling better. Vital Signs: 08:23 BP 136 / 74; Pulse 76; Resp 16; Temp 98.2; Pulse Ox 100% on R/A; Weight 74.84 kg; iw Height 5 ft. 8 in. (172.72 cm); 08:23 Body Mass Index 25.09 (74.84 kg, 172.72 cm) iw ED Course: 08:08 Patient arrived in ED. as 08:26 Triage completed. iw 08:28 Arm band placed on. iw 09:00 Melyssa Pino, RN is Primary Nurse. aa5 09:06 Doug Armendariz, JAVIER is PHCP. pm1 09:06 Angel Molina MD is Attending Physician. pm1 09:15 Patient has correct armband on for positive identification. Bed in low position. Call aa5 light in reach. Side rails up X 1. 10:40 Patient did not have IV access during this emergency room visit. aa5 10:40 No provider procedures requiring assistance completed. aa5 Administered Medications: 09:55 Drug: Valtrex 1000 mg Route: PO; aa5 10:40 Follow up: Response: No adverse reaction aa5 10:04 Not Given (pt reports itching with norco): [place] 10 mg-325 mg 1 tabs PO once; RASS on aa5 ADMIN: Combtv4, Very Agttd3, Agttd2, Rstlss1, AlertClm0, Drwsy-1, Lt Sdtn-2, Mod Sdtn-3, Dp Sdtn-4, UnArsble-5 10:08 Drug: morphine 4 mg Route: IM; Site: left deltoid; aa5 10:40 Follow up: Response: No adverse reaction aa5 10:08 Drug: Zofran (Ondansetron) 4 mg Route: PO; aa5 10:40 Follow up: Response: No adverse reaction aa5 Outcome: 10:13 Discharge ordered by MD. pm1 10:40 Discharged to home via wheelchair, with significant other. aa5 10:40 Condition: improved 10:40 Discharge instructions given to patient, Instructed on discharge instructions, follow up and referral plans. medication usage, Demonstrated understanding of instructions, follow-up care, medications, Prescriptions given X 2. 10:44 Patient left the ED. aa5 Signatures: Kaylah Ramirez Irene RN RN iw Melyssa Pino RN RN aa5 Doug Armendariz, JAVIER PNEUMATIC PRESS HAND pm1 Corrections: (The following items were deleted from the chart) 13:03 09:15 Pain: Complains of pain in lumbar area and right leg Pain currently is 9 out of aa5 10 on a pain scale. Quality of pain is described as burning, stinging, Is continuous, aa5
[2020-02-20] MEDS ORDERED: ONDANSETRON 4 MG (ODT) TAB ONE (10:15)
[2020-02-20] MEDS ORDERED: MORPHINE 4 MG/ML SYR ONE (10:15)
[2020-02-20 11:12] VITALS: BP 136/74; TEMP 98.2; O2SAT 100
== END 2020-02-20 10:44 | disposition home or self-care (01) ==
LOC: ER 08:04
DX: B02.9 Zoster without complications (principal); Z88.5 Allergy status to narcotic agent; Z88.8 Allergy status to other drugs, medicaments and biological substances; Z91.013 Allergy to seafood; Z91.041 Radiographic dye allergy status; Z79.82 Long term (current) use of aspirin
CPT/HCPCS: 96372; 99283

== ENCOUNTER 2020-06-22 07:17 | Day surgery (SDC) | payer OTHER ==
--- NOTE | 2020-06-18 11:27 | EKG ---
Test Date: 2020-06-18 Test Time: 11:19:02 Wind Tunnel Mechanic: SANDIP MEASUREMENT RESULTS: Intervals: Rate: 63 RI: 158 QRSD: 96 QT: 400 QTc: 409 [place]: P: 75 RI: 158 QRS: 5 T: 45 INTERPRETIVE STATEMENTS: Normal sinus rhythm Septal infarct, age undetermined Abnormal ECG Compared to ECG 01/24/2008 08:41:38 Incomplete right bundle-branch block no longer present Myocardial infarct finding still present Electronically Signed On 06-18-20 11:27:11 CABLE PULLER by Donnell Evans
--- OUTSIDE RECORDS SUMMARY | 2020-06-22 07:20 | XMS REPORT | Continuity of Care Document ---
:1940 Author Organization [email or web address] Care Team Providers Name Role Phone [email or web address] Unavailable Un available Problems Problem Status Onset Classification Date Comments Sour e Date Reported 530.81/787.20 Active 015 [facility] DYSPHAGIA, GERD Active 015 [facility] Aortic valve disorder Active Problem Stephen a migrated from [employer] on 01/15/15. Medical (disorder) 014 0 Data migrated from [employer] on 11/04/14. [place] Pain in limb (finding) Active Problem Da ta migrated from [employer] on 01/15/15. Medical 014 0 Data migrated from [employer] on 11/04/14. [place] Long-term drug therapy Active Problem Da ta migrated from [employer] on 01/15/15. Medical (procedure) 014 0 Data migrated from [employer] on 11/04/14. [place] Hypercholesterolemia Active Problem Data migrated from [employer] on 01/15/15. Medical (disorder) 012 0 Data migrated from [employer] on 11/04/14. [place] Carpal tunnel syndrome Active Problem [facility] (disorder) 0 Neuro Coronary Resolved Problem Medical arteriosclerosis 0 [place],[facility] [place] [facility], [facility] Dysphagia (disorder) Resolved Problem Medical 0 [facility], [facility] Dyspnea (finding) Active Problem Medical 0 Group,[facility] Esophageal reflux Resolved Problem Medical finding (finding) 0 Gr [place]up,[facility], [facility] Gastroesophageal Resolved Problem Medical reflux disease 0 Group ,Misc (disorder) her Neuro,[facility] Hiatal hernia Resolved Problem Med ical (disorder) 0 Group,Mis c her Neuro,[facility] Hypertensive disorder, Active Problem Da ta migrated from [employer] on 01/15/15. Medical systemic arterial 0 Data migrate d from [employer] on 11/04/14. Group,Misc (disorder) her Neuro Shoulder pain Active Problem Med ical (finding) 0 [facility] Excessive sweating Active Problem M H Medical (finding) 0 Group,Mis her Neuro Cervical radiculopathy Active Problem [facility] (disorder) 0 Neuro Lumbosacral Active Problem [facility] radiculopathy 0 Neuro (disorder) Postherpetic neuralgia Active Problem [facility] (disorder) 0 Neuro ESOPHAGEAL REFLUX Active [facility] DYSPHAGIA NOS Active [facility] Medications Medication Details Route Status Patient Ordering Order Source Instructions Provider Date Doxycycline 100 mg, Active [facility] PO, BID, 0 020 Neuro Refill(s) pregabalin 100 100 mg = 1 Active Mische r MG Oral Capsule cap, PO, 020 Neuro [Lyrica] BID, # 60 cap, 3 Refill(s), Pharmacy: [facility], 165.1, cm, 03/30/20 16:02:00 CDT, Height, 74.545, kg, 03/30/20 16:02:00 CDT, Weight Advil PO, Q6H, 0 Active [facility] Refill(s) 020 Neuro pregabalin 50 MG 50 mg = 1 Active Misch er Oral Capsule cap, PO, 020 Neuro [Lyrica] BID, # 60 cap, 2 Refill(s), Pharmacy: [facility], 165.1, cm, 03/14/20 15:06:00 CDT, Height, 72.273, kg, 03/14/20 15:06:00 CDT, Weight tramadol 50 mg = 1 Active [facility] hydrochloride 50 tab, PO, 020 Neuro MG Oral Tablet Q6H, 0 Refill(s) gabapentin 100 100 mg = 1 Inactive Misch er MG Oral Capsule cap, PO, 020 Neuro TID, # 90 cap, 1 Refill(s) losartan 50 mg 100 mg = 2 Active Med ical oral tablet tab, PO, 018 Group Daily, # 180 tab, 2 Refill(s), Pharmacy: [facility] Metamucil 1.7 gm =, Active Medical PO, 018 Group Bedtime Sodium Chloride 1,000 mL, Inactive 0.154 MEQ/ML Rate: 25 015 [facility] Injectable ml/hr, Solution Infuse over: 40 hr, Route: IV, Dosing Weight 75 kg, Total Volume: 1,000, Start date: 10/09/14 10:06:00, Duration: 30 day, Stop date: 11/08/14 10:05:00 Tylenol PO, 0 Active Refill(s) 015 [facility] Allergies, Adverse Reactions, Alerts Substance Category Reaction Severity Reaction Status Date Comments S ource type Reported Food Latex Assertion Propensity Active [facility] to adverse 9 Neuro reactions to substance Food Assertion Shortness Propensity Active [facility] Shellfish of breath, to adverse 9 Neuro Itching, reactions Urticaria to food (disorder) iodine<sup> Assertion Anaphylaxis Drug Active Data [facility] 1</sup> allergy 9 migrated Neuro from [employer] on 10/06/14. Originally documented as IODINE. Swollen all over iodine<sup> Assertion Anaphylaxis Drug Active 2Dat a 2</sup> allergy 9 migrated [place] s from [employer] on 10/06/14. Originally documented as IODINE. Swollen all over HYDROcodone Assertion Itching Drug Active Data [facility] <sup>3</sup allergy 2 migrated Oc ro > from [employer] on 10/06/14. Originally documented as HYDROCODON E. itching HYDROcodone Assertion Drug Active 1Data MH <sup>1</sup allergy 2 migrated Gretchen theas > from [employer] on 10/06/14. Originally documented as HYDROCODON E. itching HYDROcodone Assertion Itching Drug Active Data [facility] <sup>2</sup allergy 2 migrated Oc ro > from [employer] on 10/06/14. Originally documented as HYDROCODON E. itching lisinopril Assertion Cough, NOS Propensity Active [facility] to adverse Neuro reactions to drug Latex<sup>2 Assertion Drug Active Data Mi celio </sup> allergy migrated Neuro from [employer] on 08/08/15. Originally documented as LATEX TAPES. rash and itching FROM THICK PLASTIC DRESSINGS Latex<sup>3 Assertion Drug Active Data Mi celio </sup> allergy migrated Neuro from [employer] on 08/08/15. Originally documented as LATEX TAPES. rash and itching FROM THICK P[employer] DRESSINGS Immunizations Immunization Date Site Status Last Comments Source Given Updated Hx influenza Right completed GE Result Medi mery vaccine-unspecif 2 Deltoid Comment: [place] up,Misch ied<sup>1</sup> fluvax. er N euro Migrated from OBS ; Data migrated from [employer] on 07/10/2015. Results No Data Provided for This Section Pathology Reports No Data Provided for This Section Diagnostic Reports Report Value Date Source Shoulder 2+ Views EXAMINATION: Bilateral shoulders 2+ views 07/2016 [facility] Bilateral DX HISTORY: Bilateral shoulder pain; history of left rotator cuff surgery FINDINGS: 2+ views of each shoulder are performe d without comparison. There are no acute fractures or dislocations. The alignment is normal. There is an orthopedic anchor within the left humeral head consistent with prior left rotator cuff surgery. The bilateral glenohume ral and acromioclavicular andrea int spaces are normal. A small calcified granuloma is noted within the right lung apex. IMPRESSION: 1. Orthopedic anchor within the left humeral head consistent with prior left rotator cuff surgery. 2. No acute fracture or dislocation of either sh oulder. Barium Swallow w Barium Swallow/Video esophagram: 10/04/2014 [facility] Esophagus Function DX CLINICAL HX: 787.20, 530.81 TECHNIQUE: Thin barium was u tilized for prone and LPO images. Thick barium was utilized for upright imaging of the esophagus and pharynx. Hamburger meat with barium paste was given to evaluate motility with solids. FINDINGS: There is no delay in passage of bolus from the pharynx into the esophagus. The cricopharyngeus relaxes normally. There is no evidence for a Zenker's diverticulum or pharyngeal web. Prone and LPO images of the esophagus show a small hiatal hernia. There is severe delay in contrast passage through the esophagus into the stomach on the supine images with scattered mild tertiary esophageal contractions. Upright images with thick ba rium reveal no significant dysmotility. No mass lesions, stricture, or any significant mucosal abnormality of the esophagus is noted. Subsequently 2 separate swal lows of a small piece of hamburger meat and barium were fluoroscopically followed through the length of esophagus. There is no severe delay in passage of the solid barium rebekah us from the pharynx to the e sophagus and subsequently into the stomach. Scattered tertiary esophageal contractions are seen. Multiple episodes of retrograde motility in the esophagus are seen. Delayed image through the up per abdomen reveals prompt passage of barium from the stomach to the proximal small bowel. IMPRESSION: 1. Small hiatal hernia. 2. Severe esophageal dysmoti lity noted on the supine images as well as with the solid barium bolus with episodes of retrograde motility and scattered tertiary esophageal contractions. Fluoroscopy Time: 4.1 minutes SL: 16 Consultation Notes No Data Provided for This Section Discharge Summaries No Data Provided for This Section History and Physicals No Data Provided for This Section Vital Signs Vital Sign Value Date Comments Source Systolic (mm Hg) 157 05/25/2020 [facility] Diastolic (mm Hg) 64 05[facility] 68 05/25/2020 [facility] Neuro Respitory Rate 16 05/25/2020 [facility] Height 167.64 cm 05/25/2020 [facility] Neuro Weight 76.364 05/25/2020 [facility] Neuro BMI Calculated 27.17 05/25/2020 [facility] Systolic (mm Hg) 148 04/13/2020 [facility] Oc ro Diastolic (mm Hg) 63 04/13/2020 [facility] Ne uro Heart Rate 65 04/13/2020 [facility] Respitory Rate 16 04/13/2020 [facility] Neuro Height 167.64 cm 04/13/2020 [facility] Neuro Weight 74.545 04/13/2020 [facility] Neuro BMI Calculated 26.53 04/13/2020 [facility] Systolic (mm Hg) 143 03/30/2020 [facility] Oc ro Diastolic (mm Hg) 64 03/30/2020 [facility] Ne uro Heart Rate 62 03/30/2020 [facility] Neuro Respitory Rate 16 03/30/2020 [facility] Neuro Height 165.1 cm 03/30/2020 [facility] Neuro Weight 74.545 03/30/2020 [facility] BMI Calculated 27.35 03/30/2020 [facility] Neuro Systolic (mm Hg) 140 03/14/2020 [facility] Oc ro Diastolic (mm Hg) 66 03/14/2020 [facility] Ne uro Heart Rate 89 03/14/2020 [facility] Neuro Respitory Rate 16 03/14/2020 [facility] Neuro Height 165.1 cm 03/14/2020 [facility] Weight 72.273 03/14/2020 [facility] BMI Calculated 26.51 03/14/2020 [facility] BMI Calculated 25.29 03/25/2018 [facility] Weight 75.455 03/25/2018 [facility] Gr[facility] p Height 172.72 cm 03/25/2018 [facility] Gr[facility] p Temperature Oral (F) 97.5 F 03/25/2018 [facility]i [facility] Group Systolic (mm Hg) 159 03/25/2018 [facility] Diastolic (mm Hg) 77 03/25/2018 Medical Group Heart Rate 62 03/25/2018 [facility] Gr[facility] p Height 172.72 cm 10/26/2017 [facility] Gr[facility] p BMI Calculated 25.03 10/26/2017 Medical Gr oup Weight 74.659 10/26/2017 [facility] Gr[facility] p Heart Rate 60 10/26/2017 [facility] Gr[facility] p Temperature Oral (F) 97.3 F 10/26/2017 Medi mery Group Systolic (mm Hg) 134 10/26/2017 [facility] Diastolic (mm Hg) 62 10/26/2017 [facility] Group BMI Calculated 33.27 05/04/2017 [facility] Weight 77.273 05/04/2017 [facility] Gr[facility] p Height 152.4 cm 05/04/2017 [facility] Gr[facility] p Heart Rate 65 05/04/2017 Medical Gr[facility] p Temperature Oral (F) 97.6 F 05/04/2017 Medi mery Group Systolic (mm Hg) 136 05/04/2017 [facility] Diastolic (mm Hg) 70 05/04/2017 [facility] Group Systolic (mm Hg) 116 10/09/2014 [facility] Respitory Rate 18 10/09/2014 [facility] Diastolic (mm Hg) 69 10/09/[address] Respitory Rate 10 10/09/2014 [facility] Systolic (mm Hg) 103 10/09/2014 [facility] Diastolic (mm Hg) 63 10/09/[address] Systolic (mm Hg) 99 10/09/2014 [facility] Diastolic (mm Hg) 71 10/09/[address] Respitory Rate 16 10/09/2014 [facility] BMI Calculated 25.14 10/06/2014 [facility] Weight 75 10/06/2014 [facility] Height 172.72 cm 10/06/2014 [facility] Encounters Location Location Encounter Encounter Reason Attending ADM DC Stat us Source Details Type Number For Provider Date Date Visit [facility] [id number] [facility] 10/04 10[facility]05 [facility] Bedded [id number] [facility] 10/09 10/09 [place] [facility] Outpatient [id number] DOPPLER 05/21 Active [facility] VISIT /2014 Luke Outpatient [id number] DEMETRIO05/21 Active [facility] JAMILA [place] [facility] [id number] DOPPLER 11/06 Active [facility] VISIT /2015 [facility] Outpatient [id number] DEMETRIO11/28 [facility] JAMILA [place] Out[facility] [id number] DEMETRIO06/30 Active [facility] JAMILA [place] Out[facility] [id number] L MELVI 10/21 Active [facility] MAZEL [place] Out[facility] [id number] DOPPLER 10/27 Active [facility] VISIT /2016 [place] [facility] [id number] NUCLEAR 10/27 Active [facility] VISIT /2016 [place] [facility] [id number] DEMETRIO 10/27 Active [facility] JAMILA [facility] Outpatient [id number] XRAY VISIT 11/07 [facility] /2016 [facility] Outpatient [id number] XRAY VISIT 11/07 Act [facility] /2016 [place] [facility] [id number] OBI 11/07 Active [facility] HCRIS /2016 [place] Out[facility] [id number] DOPPLER 11/20 [facility] /2016 [place] [facility] [id number] DEMETRIO05/04 Active [id number] Dem[facility] Cardiology Jamila /2016 [facility] Outpatient [id number] DEMETRIO 10/26 Active [facility] JAMILA [facility] [id number] Demetrio 10/26 10/27 Cardiology Jamila /2017 [facility] [place] [facility] Outpatient [id number] 03/25 [facility] JAMILA [place] [facility] Outpatient [id number] 03/25 Cardiology Jamila [facility] Outpatient [id number] DEMETRIO09/23 Active [facility] JAMILA [facility] Amb[facility] [id number] Demetrio09/23 Cardiology Pre-Reg Jamila [facility] Outpatient [id number] Radhames 01/12 Active [facility] /2020 [facility] Outpatient [id number] Sergio 01/12 01/13 [facility] /2019 /2019 [facility] [place] [facility] [id number] Radhames 03/14 [facility]2020 [place] [facility] Outpatient [id number] Sergio 03/14 03/15 [facility] /2020 /2020 [facility] [place] Out[facility] [id number] Radhames 03/30 Active [facility] /2020 [place] [facility] Outpatient [id number] Sergio 03/30 03/31 [facility] [place] /2020 /2020 [facility] [place] Out[facility] [id number] Radhames 04/03 Active [facility] /2020 [facility] Ambulatory [id number] Sergio 04/03 04/03 [facility] Pre-Reg [place] /2019 /2020 [facility] [place] Outpatient [id number] Radhames 04/12 Active [facility] /2020 [place] [facility] [id number] Sergio 04/12 04/12 [facility] Pre[facility]Reg [place] /2020 /2020 [facility] [place] Outpatient [id number] Radhames 04/13 Active [facility] /2020 [place] [facility] Outpatient [id number] Sergio 04/13 04/14 [facility] [place] /2020 /2020 [facility] [place] Out[facility] [id number] Radhames 05/25 Active [facility] /2020 [place] [facility] Outpatient [id number] Sergio 05/25 05/26 [facility] [place] /2020 /2020 [facility] [place] Out[facility] [id number] Radhames 08/17 [facility] [place] Procedures Procedure Code Date Perfomer Comments Source Microwave therapy [id number] 05/22/2016 [facility] mery to prostate Group,[facility] Neuro Laparoscopic [id number] [facility] repair of inguinal hernia CABG - Coronary [id number] Medica l artery bypass Group,[facility] graft Neuro,[facility] Laparoscopic [id number] Left Medical repair of inguinal Group, [facility] hernia<sup>1</sup> Neuro Operation [id number] Medical Group,[facility] Neuro,[facility] Rotator cuff [id number] Medical repair Group,[facility] Neuro,[facility] Assessment and Plan No Data Provided for This Section Plan of Care No Data Provided for This Section Social History Social History Date Source Social History TypeResponse 03/25/2018 [facility] Neur o Alcohol Past, Type Beer, Wine, Liquor.1 Employment/School Status: Retired. Exercise Exercise type: Walking.2, 3, 4, 5 Substance Abuse Use: None. Smoking Status Former smoker; Exposure to Tobacco Smoke Unable to obtain; Cigarette Smoking Last 365 Days No; Reg Smoking Cessation Counseling No entered on: 05/25/20 1Has not had anything to drink in about 25 years.2None.3Some walking.4Not walking lately, too hot.5Some Social History TypeResponse 05/21/2015 [facility] [place] Substance Abuse Use: None. Exercise Exercise type: Walking.1, 2, 3, 4 Employment/School Status: Retired. Alcohol Past, Type Beer, Wine, Liquor.5 Smoking Status Former smoker; Type: Cigarettes; Previou s treatment: None; Ready to change: No; Concerns about tobacco use in household: No; Exposure to Tobacco Smoke None; Cigarette Smoking Last 365 Days No; Reg Smoki ng Cessation Counseling No; Started at age: [age]; Stopped at age: 56; entered on: 03/25/18 1None.2Some walking.3Not walking lately, too hot.[id number] not had anything to drink in about 25 years. Social History TypeResponse 10/06/2014 [facility] Alcohol Past, Type Beer, Wine, Liquor. Smoking Status Former smoker; Exposure to Tobacco Smoke None; Cigarette Smoking Last 365 Days No; Reg Smoking Cessation Counseling No Family History No Data Provided for This Section Advance Directives No Data Provided for This Section Functional Status No Data Provided for This Section
--- OUTSIDE RECORDS SUMMARY | 2020-06-22 07:22 | XMS REPORT | Continuity of Care Document ---
:1940 Author Organization [facility] t Address [address] [place] [address] Care Team Providers Name Role Phone Lele Goodwin Attending Clinician Neeraj Alas Attending Clinician Anneliese Marino Attending Clinician Banki Attending Clinician Banki Admitting Clinician Problems Condition Condition Condition Status Onset Resolution Last Treating Co mments Source Name Details Category Date Date Treatment Clinician Date 530.81/787 Diagnosis Active 2014-10-10 Memoria .20 10-04 08:49:00 l 00:00: Luke 530.81/787 00 .20 Active 10/04/2014 [place] DYSPHAGIA, Diagnosis Active 2014-10-06 Memoria GERD 09-29 14:30:00 l 00:00: Luke DYSPHAGIA, 00 GERD Active 09/29/2014 [place] Aortic Problem Active 2020-05-28 Memor ia valve 01-02 01:15:40 l disorder Aortic 00:00: Jose Miguel n (disorder) valve 00 disorder (disorder) Active 01/02/2014 Problem 05/28/2020 Data migrated from Programeter on 01/15/15.Da ta migrated from Program[employer] on 11/04/14. Medical Group,[facility] her Neuro Pain in Problem Active 2020-05-28 Ashkan magen limb 7-21 01:15:40 l (finding) Pain in 00:00: Herm johnnie limb 00 (finding) Active 12/26/2013 Problem 05/28/2020 Data migrated from [employer] on 01/15/15.Da ta migrated from [employer] on 11/04/14. Medical Group,[facility] Long-term Problem Active 2020-05-28 Me moria drug 10-17 01:15:40 l therapy 00:00: Luke (procedure Long-term 00 ) drug therapy (procedure ) Active 10/17/2013 Problem 05/28/2020 Data migrated from [employer] on 01/15/15.Da ta migrated from [employer] on 11/04/14. Medical Group,[facility] Hyperchole Problem Active 2020-05-28 M emoria sterolemia 02-25 01:15:40 l (disorder) 00:00: Jose Miguel n Hyperchole 00 sterolemia (disorder) Active 02/26/2012 Problem 05/28/2020 Data migrated from [employer] on 01/15/15.Da ta migrated from [employer] on 11/04/14. Medical Group,[facility] Coronary Problem Resolve 2020-05-28 Me moria arterioscl d 01:15:40 l erosis Coronary Jose Miguel n (disorder) arterioscl erosis (disorder) Resolved Problem 05/28/2020 [facility], [place] Dysphagia Problem Resolve 2020-05-28 M emoria (disorder) d 01:15:40 l [place] Dysphagia (disorder) Resolved Problem 05/28/2020 Medical Group,[facility], [place] Esophageal Problem Resolve 2020-05-28 Memoria reflux d 01:15:40 l finding [place] (finding) Esophageal reflux finding (finding) Resolved Problem 05/28/2020 [facility], [place] Gastroesop Problem Resolve 2020-05-28 Memoria hageal d 01:15:40 l reflux Luke disease Gastroesop (disorder) hageal reflux disease (disorder) Resolved Problem 05/28/2020 Medical Group,[facility], [place] Hiatal Problem Resolve 2020-05-28 Ashkan amgen hernia d 01:15:40 l (disorder) Hiatal Herm johnnie hernia (disorder) Resolved Problem 05/28/2020 [facility] [place] Carpal Problem Active 2020-05-28 Memor ia tunnel 01:15:40 l syndrome Carpal Jose Miguel n (disorder) tunnel syndrome (disorder) [facility] Active 2020-05-28 Ashkan magen (finding) 01:15:40 l Dyspnea Luke (finding) Active Problem 05/28/2020 Medical [facility] her Neuro Hypertensi Problem Active 2020-05-28 M emoria ve 01:15:40 l disorder, Luke systemic Hypertensi arterial ve (disorder) disorder, systemic arterial (disorder) Active Problem 05/28/2020 Data migrated from Programeter on 01/15/15.Da ta migrated from eSightty on 11/04/14. Medical [facility] her Neuro Shoulder Problem Active 2020-05-28 Mem oria pain 01:15:40 l (finding) Shoulder [place] pain (finding) Active Problem 05/28/2020 [facility] her Neuro Excessive Problem Active 2020-05-28 Me moria sweating 01:15:40 l (finding) [place] Excessive sweating (finding) Active Problem 05/28/2020 [facility] her Neuro Cervical Problem Active 2020-05-28 Mem oria radiculopa 01:15:40 l thy Cervical Jose Miguel n (disorder) radiculopa thy (disorder) Active Problem [facility]/28[facility]2020 [facility] Lumbosacra Problem Active 2020-05-28 M emoria l 01:15:40 l radiculopa Jose Miguel n thy Lumbosacra (disorder) l radiculopa thy (disorder) Active Problem [facility]/28/2020 [facility] Post[facility] Problem Active 2020-05-28 M emoria ic 01:15:40 l neuralgia [place] (disorder) Postherpet ic neuralgia (disorder) Active Problem 05/28/2020 [facility] Neuro ESOPHAGEAL Diagnosis Active 2014-10-10 Memoria REFLUX 08:49:00 l Luke ESOPHAGEAL REFLUX Active [facility] DYSPHAGIA Diagnosis Active 2014-10-10 Memoria NOS 08:49:00 l Luke DYSPHAGIA NOS Active [facility] Allergies, Adverse Reactions, Alerts Allergy Allergy Status Severity Reaction(s) Onset Inactive Treating Comm ents Source Name Type Date Date Clinician HYDROcod HYDROcod Active Memori a one<sup> one<sup> 9-24 l 2</sup> 2</sup> 05:00: Food Food Active 2008-06 Memoria Latex Latex 1-30 l 00:00: Food Food Active Shortness of 2008-06 Ashkan magen Shellfis Shellfis breath, 1-30 l h h Itching, 00:00: Urticaria 00 (disorder) iodine<s iodine<s Active 2008-06 Memori a up>2</bear up>2</bear 1-30 l p> p> 00:00: Hydrocor Allergy Active Mild Itching [place] [facility] lisinopr lisinopr Active Memori a il il l [place] Latex<bear Latex<bear Active Memori a p>2</sup p>2</sup l > > Luke Latex<bear Latex<bear Active Memori a p>3</sup p>3</sup l > > Luke Social History Social Habit Start Date Stop Date Quantity Comments Source Social History 2014-10-06 2014-10-06 [facility] 19:57:23 19:57:23 Smoking Status Start Date Stop Date Source Former Smoker [facility] Medications Ordered Filled Start Stop Current Ordering Indication Dosage Frequency Signature Comments Components Source Medication Medication Date Date Medication? Clinician (SIG) Name Name Doxycycline 2019-06 Yes 100 mg, Mem oria 1-06 PO, BID, 0 l 14:30: Refill(s) pregabalin 2019-06 Yes 100 mg = 1 M emoria 100 MG Oral 0-23 cap, PO, l Capsule 21:57: BID, # 60 Sandy nn [Lyrica] 00 cap, 3 Refill(s), Pharmacy: [facility], 165.1, cm, 03/30/20 16:02:00 CDT, Height, 74.545, kg, 03/30/20 16:02:00 CDT, Weight Advil 2019-06 Yes PO, Q6H, 0 Memori a 0-23 Refill(s) l 21:06: pregabalin 2019-06 Yes 50 mg = 1 Me moria 50 MG Oral 0-07 cap, PO, l Capsule 20:38: BID, # 60 Sandy nn [Lyrica] 00 cap, 2 Refill(s), Pharmacy: [facility], 165.1, cm, 03/14/20 15:06:00 CDT, Height, 72.273, kg, 03/14/20 15:06:00 CDT, Weight tramadol 2019-06 Yes 50 mg = 1 Ashkan magen hydrochlori 0-07 tab, PO, l de 50 MG 20:27: Q6H, 0 [place] Oral Tablet 00 Refill(s) gabapentin 2019-06 No 100 mg = 1 M emoria 100 MG Oral 0-07 cap, PO, l Capsule 20:27: TID, # 90 Sandy nn 00 cap, 1 Refill(s) losartan 50 2017-06 Yes 100 mg = 2 Memoria mg oral 0-18 tab, PO, l tablet 13:34: Daily, # Luke 05 180 tab, 2 Refill(s), Pharmacy: [facility] Metamucil Yes 1.7 gm =, Mem oria 5-21 PO, l 12:56: Bedtime [place] 00 Sodium No 1,000 mL, Memori a Chloride - Rate: 25 l 0.154 15:06: ml/hr, [place] MEQ/ML 00 Infuse Injectable over: 40 Solution hr, Route: IV, Dosing Weight 75 kg, Total Volume: 1,000, Start date: 10/09/14 10:06:00, Duration: 30 day, Stop date: 11/08/14 10:05:00 Tylenol Yes PO, 0 Memoria 5-01 Refill(s) l 19:58: [place] 00 alprazolam alprazolam No alprazolam [place] 0.25 mg 0.25 mg 0.25 mg da tablet tablet tablet [facility] amlodipine amlodipine No amlodipine [place] 2.5 mg 2.5 mg 2.5 mg da tablet tablet tablet Medical Group fluticasone fluticasone No fluticason [place] propionate propionate e da 50 50 propionate Medical mcg/actuati mcg/actuati 50 G roup on nasal on nasal mcg/actuat spray,suspe spray,suspe ion nasal nsion [place] nsion [place] spray,susp 1 spray 1 spray ension twice a day twice a day [place] 1 by by spray intranasal intranasal twice [...] BMI (Body Mass 2019-03-25 00:00:00 26.2 kg/m2 [facility] Index) Group BP Systolic 2019-03-25 00:00:00 161 mm[Hg] [facility] Body Weight 2019-03-25 00:00:00 172 [lb_av] [facility] BP Diastolic 2019-03-07 00:00:00 77 mm[Hg] [facility] Height 2019-03-07 00:00:00 68 [in_i] [facility] BMI (Body Mass 2019-03-07 00:00:00 26.2 kg/m2 [facility] Medical Index) Group BP Systolic 2019-03-07 00:00:00 151 mm[Hg] [facility] Body Weight 2019-03-07 00:00:00 172.2 [lb_av] [facility] BP Diastolic 2019-02-10 00:00:00 75 mm[Hg] [facility] Height 2019-02-10 00:00:00 68 [in_i] [facility] BMI (Body Mass 2019-02-10 00:00:00 26.3 kg/m2 [facility] security [facility] Medical Index) Group BP Systolic 2019-02-10 00:00:00 160 mm[Hg] [facility] Body Weight 2019-02-10 00:00:00 173 [lb_av] [facility] Systolic (mm Hg) 2020-05-25 15:52:00 Ashkan rial Luke Diastolic (mm Hg) 2020-05-25 15:52:00 Mem orial [place] Heart Rate 2020-05-25 15:52:00 [facility] Luke Respitory Rate 2020-05-25 15:52:00 Memori al Luke Height 2020-05-25 15:52:00 167.64 cm [facility] [place] Weight 2020-05-25 15:52:00 [facility] Luke BMI Calculated 2020-05-25 15:52:00 Memori al Luke Systolic (mm Hg) 2020-04-13 14:21:00 Ashkan rial Luke Diastolic (mm Hg) 2020-04-13 14:21:00 Mem orial Luke Heart Rate 2020-04-13 14:21:00 [facility] Luke Respitory Rate 2020-04-13 14:21:00 Memori al Luke Height 2020-04-13 14:21:00 167.64 cm [facility] Luke Weight 2020-04-13 14:21:00 [facility] Luke BMI Calculated 2020-04-13 14:21:00 Memori al Luke Systolic (mm Hg) 2020-03-30 21:02:00 Ashkan rial Luke Diastolic (mm Hg) 2020-03-30 21:02:00 Mem orial Luke Heart Rate 2020-03-30 21:02:00 [facility] Luke Respitory Rate 2020-03-30 21:02:00 Memori al [place] Height 2020-03-30 21:02:00 165.1 cm [facility] [place] Weight 2020-03-30 21:02:00 [facility] Luke BMI Calculated 2020-03-30 21:02:00 Memori al [place] Systolic (mm Hg) 2020-03-14 20:06:00 Ashkan rial Luke Diastolic (mm Hg) 2020-03-14 20:06:00 Mem orial [place] Heart Rate 2020-03-14 20:06:00 [facility] [place] Respitory Rate 2020-03-14 20:06:00 Memori al Luke Height 2020-03-14 20:06:00 165.1 cm [facility] Luke Weight 2020-03-14 20:06:00 [facility] Luke BMI Calculated 2020-03-14 20:06:00 Memori al [place] BMI Calculated 2018-03-25 12:56:00 Memori al Luke Weight 2018-03-25 12:56:00 [facility] Luke Height 2018-03-25 12:56:00 172.72 cm [facility] Luke Temperature Oral (F) 2018-03-25 12:56:00 97.5 F [facility] [place] Systolic (mm Hg) 2018-03-25 12:56:00 Ashkan rial Luke Diastolic (mm Hg) 2018-03-25 12:56:00 Mem orial [place] Heart Rate 2018-03-25 12:56:00 [facility] [place] Height 2017-10-26 12:52:00 172.72 cm [facility] [place] BMI Calculated 2017-10-26 12:52:00 Memori al Luke Weight 2017-10-26 12:52:00 [facility] [place] Heart Rate 2017-10-26 12:52:00 [facility] Luke Temperature Oral (F) 2017-10-26 12:52:00 97.3 F [facility] [place] Systolic (mm Hg) 2017-10-26 12:52:00 Ashkan rial [place] Diastolic (mm Hg) 2017-10-26 12:52:00 Mem orial [place] BMI Calculated 2017-05-04 14:03:00 Memori al [place] Weight 2017-05-04 14:03:00 [facility] [place] Height 2017-05-04 14:03:00 152.4 cm [facility] [place] Heart Rate 2017-05-04 14:03:00 [facility] Luke Temperature Oral (F) 2017-05-04 14:03:00 97.6 F [facility] Luke Systolic (mm Hg) 2017-05-04 14:03:00 Ashkan rial Luke Diastolic (mm Hg) 2017-05-04 14:03:00 Mem orial [place] Systolic (mm Hg) 2014-10-09 18:00:00 Ashkan rial Luke Respitory Rate 2014-10-09 18:00:00 Memori al [place] Diastolic (mm Hg) 2014-10-09 18:00:00 Mem orial [place] Respitory Rate 2014-10-09 17:40:00 Memori al [place] Systolic (mm Hg) 2014-10-09 17:40:00 Ashkan rial [place] Diastolic (mm Hg) 2014-10-09 17:40:00 Mem orial [place] Systolic (mm Hg) 2014-10-09 17:27:00 Ashkan rial Luke Diastolic (mm Hg) 2014-10-09 17:27:00 Mem orial [place] Respitory Rate 2014-10-09 17:27:00 Memori al [place] BMI Calculated 2014-10-06 19:50:00 Memori al [place] Weight 2014-10-06 19:50:00 [facility] Height 2014-10-06 19:50:00 172.72 cm [facility] Procedures Procedure Date / Time Performing Clinician Source Performed TYMPANOMETRY 2019-03-25 00:00:00 [facility] TYMPANOMETRY 2019-03-07 00:00:00 [facility] TYMPANOMETRY 2019-02-10 00:00:00 [facility] unlisted imaging order 2019-02-10 00:00:00 [facility] Microwave therapy to 2016-05-22 06:00:00 Juan Miguel Butler prostate Appendectomy [facility] CABG - Coronary artery [facility] bypass graft Laparoscopic repair of [facility] inguinal hernia<sup>1</sup> Operation [facility] Rotator cuff repair [facility] Plan of Care Planned Activity Planned Date Details Comments Source Instructions [facility] Encounters Start End Encounter Admission Attending Care Care Encounter Source Date/Time Date/Time Type Type Clinicians Facility Department ID 2020-06-15 2020-06-15 Office WINNIE Fairchild [id number] 07:45:06 08:00:06 Visit [facility] [id number] Surgical [id number] Specialti [id number] [address] 2020-05-25 2020-05-25 Outpatient Krell, MHMISCHER MHMISCHER [id number] 09:45:00 23:59:59 Radhames 23 Neeraj 2020-04-13 2020-04-13 Outpatient Krell, MHMISCHER MHMISCHER [id number] 08:15:00 23:59:59 Radhames 22 Neeraj 2020-04-12 2020-04-12 Outpatient Krell, MHMISCHER MHMISCHER [id number] 13:45:00 13:45:00 Radhames 19 Neeraj 2020-04-03 2020-04-03 Outpatient Krell, MHMISCHER MHMISCHER [id number] 11:45:00 11:45:00 Radhames 20 Neeraj 2020-03-30 2020-03-30 Outpatient Krell, MHMISCHER MHMISCHER [id number] 16:00:00 23:59:59 Radhames 21 Neeraj 2020-03-14 2020-03-14 Outpatient Krell, MHMISCHER MHMISCHER [id number] 15:15:00 23:59:59 Radhames 18 Neeraj 2020-01-13 2020-01-13 Outpatient Krell, MHMISCHER MHMISCHER [id number] 08:15:00 23:59:59 Radhames 17 Neeraj 2019-03-25 2019-03-25 [place] MM [place] - [id number] [place] 00:00:00 00:00:00 MD Chiara: [address] [address] , Ph. 2019-03-07 2019-03-07 [facility] MMG [place] - [id number] [place] 00:00:00 00:00:00 MD Chiara: [address] [address] , Ph. 2019-02-10 2019-02-10 [facility] [place] - [id number] [place] 00:00:00 00:00:00 MD Chiara: [address] [address] , Ph. 2018-09-23 2018-09-23 Outpatient Jamila, [facility] [id number] 09:30:00 09:30:00 Demetrio D 15 2018-03-25 2018-03-25 Outpatient Jamila, [facility] [id number] 08:30:00 23:59:59 Demetrio D 16 2017-10-26 2017-10-26 Outpatient Jamila, [facility] [id number] 08:30:00 23:59:59 Demetrio D 14 2017-05-04 2017-05-04 Outpatient Jamila, [facility] [id number] 08:30:00 23:59:59 Demetrio D 06 2014-10-09 2014-10-09 Outpatient Banki, [facility] [id number] 09:53:00 13:00:00 [facility] 03 2014-10-04 2014-10-04 Outpatient Banki, [facility] [id number] 10:02:00 23:59:00 [facility] Results Test Description Test Time Test Comments Results Result Comments Source tympanogram 2019-03-07 14:40:58 Test Item Value Reference Range Interpretation Comme nts Right (test code = Right) Type C Peak is on Left Left (test code = Left) Type C Peak is on Left [facility]2019-09-30 14:40:58 Test Item Value Reference Range Interpretation Comments Right (test code = Type C Peak is on Left Right) Left (test code = Left) Type C Peak is on Left [facility]2019-09-05 09:31:46 Test Item Value Reference Range Interpretation Comments Right (test code = Type A Normal Right) Left (test code = Type C Peak is on Left Left) [facility]2019-09-05 09:31:46 Test Item Value Reference Range Interpretation Comments Right (test code = Type A Normal Right) Left (test code = Type C Peak is on Left Left) [facility]
--- OUTSIDE RECORDS SUMMARY | 2020-06-22 07:22 | XMS REPORT | Summary of Care ---
:1940 Author Organization [facility] Address [address] [place] [address] Care Team Providers Name Role Phone Angelica Luna Primary Care Provider [phone] Reason for Referral (Routine) Status Reason Specialty Diagnoses / Referred By Referred To Procedures Contact Contact New Request Occupational Diagnoses S/P carpal tunnel release Cubital tunnel syndrome on right Lele Fairchild Therapy Procedures CONSULT/REFERRAL OCCUPATIONAL THERAPY S, PAC [address] [place] [address] Reason for Visit Reason Comments Follow-up S/P RT CTR 02/08/2020, deb ess, weakness, tender Encounter Details Date Type Department Care Team Description 06/15/2020 Office Visit [facility] Orthopaedic Lele Fairchild S, S /P carpal tunnel release (Primary Dx); Surgery- [place] PAC Cubital tunnel syndrome on right [address], [address] [place] [address] [place] [address] [place], [place] [phone] Allergies Active Allergy Reactions Severity Noted Date Comments Dye Hives, Itching 08/16/2015 Contrast dye Hydrocodone Hives, Itching 08/16/2015 Lisinopril Cough 09/03/2015 Iodine And Iodide Containing Products Hives 03/2016 documented as of this encounter (statuses as of 06/15/2020) Medications Medication Sig Dispensed Refills Start Date [...] as of this encounter (statuses as of 06/15/2020) Active Problems Problem Noted Date Chest pain 07/08/2018 Finger pain 08/16/2015 Overview: Lt, Rt. hand documented as of this encounter (statuses as of 06/15/2020) Social History Tobacco Use Types Packs/Day Years Used Date Never Smoker Smokeless Tobacco: Never Used Alcohol Use Drinks/Week oz/Week Comments Not Asked 0 Standard drinks or equivalent 0.0 Sex Assigned at Date Recorded Not on file COVID-19 Exposure Response Date Recorded In the last month, have you been in contact with No / Unsure 06/15/2020 7:44 AM CHYRON OPERATOR someone who was confirmed or suspected to have Coronavirus / COVID-19? documented as of this encounter Last Filed Vital Signs Vital Sign Reading Time Taken Comments Blood Pressure 147/74 06/15/2020 8:02 AM CHYRON OPERATOR Pulse 68 06/15/2020 8:02 AM CHYRON OPERATOR Temperature - - Respiratory Rate - - Oxygen Saturation - - Inhaled Oxygen Concentration - - Weight 74.8 kg (165 lb) 06/15/2020 7:59 AM CHYRON OPERATOR Height 172.7 cm (5' 8") 06/15/2020 7:59 AM CHYRON OPERATOR Body Mass Index 25.09 06/15/2020 7:59 AM CHYRON OPERATOR documented in this encounter Progress Notes Lele Fairchild, PAC - 06/15/2020 8:00 AM CST Cc: Chief Complaint Patient presents with Follow-up S/P RT CTR 02/08/2020, soreness, weakness, tender Ayaz Brunson Jr. is a 80 year old male. Head for follow-up on carpal tunnel release 02/08/2020 he still has some soreness in his palm at the incision site and he is having symptoms of ulnar nerve pain. Also been experiencing some progressive weakness in his right hand he has tried a stress ball for strengthening. Also a matching machine operator strength hand spring but that's very difficult for him to do. Allergies Ayaz is allergic to dye; hydrocodone; [...] 08/11/2019 Surgeon: Roberto Carlos Moore MD; Location: [facility] PHACOEMULSIFICATION OF CATARACT WITH INTRAOCULAR LENS IMPLANT Left 09/29/2019 Surgeon: Robetro Carlos Moore MD; Location: [facility] [place] ANESTH,OPEN HEART SURGERY+PUMP SPINE SURGERY Social History [...] file Gets together: Not on file Attends jainism service: Not on file Active member of [...] Musculoskeletal: Positive for myalgias. Skin: Negative. Neurological: Negative. Endocrine: Endocrine negative Vital Signs BP (!) 159/73 | Pulse 67 | Ht 68" (172.7 cm) | Wt 74.8 kg (165 lb) | BMI 25.09 kg/m Physical Exam Musculoskeletal: [...] content normal. Nursing note and vitals reviewed. He does have some weakness to matching machine operator in his right hand negative Tinel's test at the carpal tunnel and negative Tinel's test at the tibial tunnel Assessment/Plan Cubital tunnel syndrome His nerve conduction study before the carpal tunnel release was done at Dr. Alas's office. He will get a copy of that nerve conduction study to review as to the involvement of the ulnar nerve He's going to get some hand putty to further work on matching machine operator strength and I will give him a prescription for occupational therapy. documented in this encounter Plan of Treatment Health Maintenance Due Date Last Done Comments DTaP,Tdap,and Td Vaccines (1 - Tdap) 1960 Zoster Recombinant Vaccine (SHINGRIX) (1 1991 of 2) Medicare Wellness Visit 2006 PNEUMOCOCCAL VACCINES 65+ (1 of 1 - 2006 PPSV23) INFLUENZA VACCINE (#1) 2020 02/11/2019, 03/22/2015 Depression Screening 09/28/2020 09/29/2019 documented as of this encounter Implants Implanted Type Area Hotel Staff Member Device Shelf Model / Serial Identifier Expiration / Lot Date Lens, Bobby #[id number] - [id number] LENS Right: Bobby 04/07/2024 [id number] / Implanted: Qty: 1 on 08/11/2019 by Roberto Carlos Moore MD at [facility] 1 [id number] / N/A Lens, Bobby #[id number] 21.5d - [id number] LENS Left: Eye Bobby 03/07/2024 [id number] 21.5D / Implanted: Qty: 1 on 09/29/2019 by Roberto Carlos Moore MD at [facility] 3 [id number] / 0 documented as of this encounter Results Not on filedocumented in this encounter Visit Diagnoses Diagnosis S/P carpal tunnel release - Primary Other postprocedural status Cubital tunnel syndrome on right Lesion of ulnar nerve documented in this encounter Insurance Payer Benefit Plan / Subscriber ID Effective Dates Phone Addre ss Type Group MEDICARE MEDICARE PART A [id number] 2006-Prese [phone] Medicare & [place] [id number] JIMBO ERICKSON [phone] HUMANA HUMANA [id number] 2019-Prese Inde mnity INDEMNITY nt documented as of this encounter
--- OUTSIDE RECORDS SUMMARY | 2020-06-22 07:22 | XMS REPORT | Summary of Care ---
:1940 Author Organization [facility] Address [address] [place] [id number] Care Team Providers Name Role Phone Angelica Luna Primary Care Provider [phone] Reason for Referral (Routine) Status Reason Specialty Diagnoses / Referred By Referred To Procedures Contact Contact New Request Occupational Diagnoses S/P carpal tunnel release Cubital tunnel syndrome on right Lele Fairchild Therapy Procedures CONSULT/REFERRAL OCCUPATIONAL THERAPY S, [facility] [address] [place] [address] Reason for Visit Reason Comments Follow-up S/P RT CTR 02/08/2020, deb ess, weakness, tender Encounter Details Date Type Department Care Team Description 06/15/2020 Office Visit [facility] Lele Fairchild S, S /P carpal tunnel release (Primary Dx); Surgery- [place] [facility] Cubital tunnel syndrome on right [address], [address] [place] [address] [place] [address] [place], [place] [phone] Allergies Active Allergy Reactions Severity Noted [...] with No / Unsure 06/15/2020 7:44 AM SOLE TRIMMER someone who was confirmed or suspected to have Coronavirus / COVID-19? documented as of this encounter Last Filed Vital Signs Vital Sign Reading Time Taken Comments Blood Pressure 147/74 06/15/2020 8:02 AM SOLE TRIMMER Pulse 68 06/15/2020 8:02 AM SOLE TRIMMER Temperature - - Respiratory Rate - - Oxygen Saturation - - Inhaled Oxygen Concentration - - Weight 74.8 kg (165 lb) 06/15/2020 7:59 AM SOLE TRIMMER Height 172.7 cm (5' 8") 06/15/2020 7:59 AM SOLE TRIMMER Body Mass Index 25.09 06/15/2020 7:59 AM SOLE TRIMMER documented in this encounter Progress Notes Lele [...] a stress ball for strengthening. Also a virology teacher strength hand spring but that's very difficult [...] 08/11/2019 Surgeon: Roberto Carlos Moore MD; Location: [facility] OR [facility] PHACOEMULSIFICATION OF CATARACT WITH INTRAOCULAR LENS IMPLANT Left 09/29/2019 Surgeon: Roberto Carlos Moore MD; Location: [facility] OR [facility] [place] ANESTH,OPEN HEART SURGERY+PUMP SPINE SURGERY Social History [...] file Gets together: Not on file Attends voodoo service: Not on file Active member of [...] reviewed. He does have some weakness to virology teacher in his right hand negative Tinel's test [...] some hand putty to further work on virology teacher strength and I will give him a [...] of this encounter Implants Implanted Type Area Sheet Rock Nailer Device Shelf Model / Serial Identifier Expiration / Lot Date Lens, Bobby #[id number] - [id number] LENS Right: Bobby 04/07/2024 SN60WF / Implanted: Qty: 1 on 08/11/2019 by Roberto Carlos Moore MD at [facility] 1 [id number] / N/A Lens, Bobby #Sn60wf 21.5d - [id number] LENS Left: Eye Bobby 03/07/2024 SN60WF 21.5D / Implanted: Qty: 1 on 09/29/2019 by Roberto Carlos Moore MD at [facility] 1 [id number] / 0 documented as of this encounter Results Not on filedocumented in this encounter Visit Diagnoses Diagnosis S/P carpal tunnel release - Primary Other postprocedural status Cubital tunnel syndrome on right Lesion of ulnar nerve documented in this encounter Insurance Payer Benefit Plan / Subscriber ID Effective Dates Phone Addre ss Type Group MEDICARE MEDICARE PART A [id number] 2006-Prese [phone] Medicare & B nt [id number] JIMBO ERICKSON [phone] HUMANA HUMANA [id number] 2019-Prese Inde mnity INDEMNITY nt documented as of this encounter
[2020-06-22] MEDS ORDERED: CLINDAMYCIN 900MG/D5W 900 MG/50 ML IVPB IV ONE (07:50)
[2020-06-22] MEDS ORDERED: OXYMETAZOLINE HCL 0.05% 15ML NAS ONE (07:50)
[2020-06-22] MEDS: OXYMETAZOLINE HCL 0.05% 15ML NAS ONE ×2 (07:50→07:55)
[2020-06-22] MEDS: Ringers Lactate 1,000 ML IV ONE ×2 (08:06→08:45)
[2020-06-22] MEDS ORDERED: LIDOCAINE 2% MPF 5 ML VIAL ONE (08:39)
[2020-06-22] MEDS ORDERED: ROCURONIUM 50 MG/5 ML VIAL IV ONE (08:39)
[2020-06-22] MEDS ORDERED: propofoL 200 MG/20 ML VIAL IV ONE (08:39)
[2020-06-22] MEDS ORDERED: FENTANYL CITR 100 MCG/2 ML ONE (08:39)
[2020-06-22] MEDS ORDERED: MIDAZOLAM HCL 2 MG/2 ML INJ ONE (08:39)
[2020-06-22] MEDS ORDERED: dexAMETHasone 10 MG/ML VIAL ONE (08:39)
[2020-06-22] MEDS ORDERED: LIDOCAINE 1% MPF 30 ML VIAL ONE (09:01)
[2020-06-22] MEDS ORDERED: NA CHLORIDE 0.9% 0 ML ONE (09:01)
[2020-06-22] MEDS ORDERED: EPINEPHRINE/PF 1 MG/ML AMP ONE (09:01)
[2020-06-22] MEDS ORDERED: NA CHLORIDE 0.9% 500 ML ONE (09:02)
[2020-06-22] MEDS ORDERED: EPHEDRINE SULF 50 MG/ML VIAL ONE (09:29)
[2020-06-22] MEDS ORDERED: Ringers Lactate 1,000 ML IV ONE (11:12)
--- NOTE | 2020-06-22 11:47 | P.BOP ---
Preoperative diagnosis: CRS Postoperative diagnosis: CRS with DOPE POURER Primary procedure: NE with B ethmo-sphenoid, frontal and maxillary sinuses Servicing Manager: NONE,NONE Estimated blood loss: 150ml Specimen: B sinus contents, right sinus for culture Findings: B stacey, R with DOPE POURER within stacey Anesthesia: General Complications: None Implants: Propel contour (L to FS and FR, R FR), Propel B ethmoid Fluids & blood products: crystalloid 1350ml Transferred to: Recovery Room Condition: Good
[2020-06-22] MEDS ORDERED: MORPHINE 10 MG/ML VIAL ONE (12:01)
[2020-06-22] MEDS: TAMSULOSIN 0.4 MG SR CAP ONE ×2 (12:20→12:35)
[2020-06-22] MEDS ORDERED: ONDANSETRON 4 MG/2 ML VIAL ONE (12:21)
[2020-06-22] MEDS: MORPHINE 4 MG/ML SYR ONE ×2 (12:35→12:40)
[2020-06-22 12:47] VITALS: TEMP 97
[2020-06-22] MEDS ORDERED: IBUPROFEN 400 MG TAB ONE (13:32)
[2020-06-22 15:04] VITALS: BP 157/64; O2SAT 99
--- NOTE | 2020-06-26 08:50 | OP ---
Date of Procedure: 06/22/2020 Surgeon: Radha Bedolla MD Resident Care Supervisor: None. Preoperative Diagnoses: Chronic rhinosinusitis. Postoperative Diagnosis: Chronic pansinusitis with nasal polyposis. Procedure: Bilateral nasal endoscopy with sphenoidotomy, total ethmoidectomy, frontal sinusotomy, ma xillary antrostomy, and use of stereotactic cranial extradural navigation. Surgical Findings: Moderate left ethmoid polyposis and right severe ethmoid polyposis, bilateral con bullosa. Indication For Procedure: Mr. Brunson presented with symptoms of chronic rhinosinusitis. He was treate d with maximal medical therapy and had persistent symptoms and abnormal radiographs. When the patien t presented to discuss the findings in April, he was suffering from shingles of the lower extremit y and opted to defer surgical intervention. He returned approximately 2 months later having recovere d from shingles and desiring to proceed with endoscopic sinus surgery. The risks, benefits, and alte rnatives were discussed with the patient and his . The patient was asked to hold his aspirin for 7 days prior to the procedure. Description Of Procedure: The patient was brought to the operating room. He was placed under genera l anesthesia via oral endotracheal tube. The head of bed was turned 90 degrees and the patient was p repped and draped for sinus surgery. The [employer] image guidance system was preloaded with the patient's post treatment CT of the sinuses. The navigation registration piece was applied with adhe sives to the patient's forehead. The registration pointer was used to trace along the patient's nose , forehead, and cheek is order to register the system. Accuracy was confirmed with [id number]-fr-[id number] ma tching over the glabella, nasal dorsum, and bilateral lateral canthi and accuracy was felt to be very good accuracy. The tip of the nose was somewhat distorted, likely due to the presence of a surgical mask or face covering altering the soft tissues of the tip of the nose during image acquisition. Th e 0-degree endoscope was then used to examine the nasal cavity. The nasal cavity was packed with Afr in-soaked pledgets for several minutes to aid in decongestion while registration was in process. Initial findings included a left large stacey bullosa and nasal polyps noted within the ethmoid cavit y, but not extending into the middle meatus. On the right side, there were large polyps extending in to the nasal cavity near but not directly touching the nasal floor. The middle meatus was filled wit h large polyps and polyps were noted to extend into the bilateral sphenoethmoid recess. Lidocaine wi th epinephrine was not available due to drug shortages and therefore no injection was performed. Att ention was first turned to the left side. The sickle knife was used to incise through the middle tur binate stacey bullosa. Endoscopic scissors and 45-degree Thru-Cut Blakesley was used to remove the l ateral aspect of the stacey bullosa opening up the middle meatus. There was a small amount of polyps noted along the ethmoid bulla. A Manning was used to medialize the remaining portion of the middle tu rbinate and the uncinate process was removed using a backbiter and 90-degree Blakesley. There was a small amount of bleeding and Afrin-soaked pledgets were applied in order to obtain hemostasis. Atten tion was then turned to the right thigh where the straight and 45-degree Blakesley was used to debulk the polyps within the middle meatus. Polyps were debrided until bleeding limited adequate visualiza tion. The area was then packed with Afrin-soaked pledgets and attention was turned back to the left side. The navigation clamp was applied to the straight suction and registered according to manufactu re's instructions. Accuracy of navigation was confirmed by [id number] matching on the nasal dors um and glabella and was felt to be very good. Dissection of the ethmoid cavity was then undertaken u sing the curette with 45, a straight and 90-degree Blakesley used to remove bony partitions and polyp oid mucosa. Dissection was carried up to the skull based and within the frontal recess area. Subseq uent use of 30 and 70 degree angled scopes improved visualization. The navigation was switched to th e curved suction, which was recalibrated and accuracy confirmed. The curved suction was then used to confirm dissection along and into the frontal recess and bony partitions were removed using Giraffe forceps until the frontal recess was adequately dissected. The 70-degree endoscope was then rotated for better visualization of the left lateral nasal wall and the maxillary antrostomy was better devel oped. A secondary os was noted and tissue was removed between the natural os and secondary os to pre vent mucus recirculation creating a large maxillary antrostomy with angled scope visualization into t he maxillary sinus. There was no significant polyposis noted and no obvious entrapped mucus or evide nce of isma purulence. Afrin-soaked pledgets were applied to the ethmoid cavity and attention was t urned to the left sphenoethmoid recess. The middle turbinate was lateralized and polyps were removed from the medial nasal cavity tracing back toward the sphenoid ethmoid recess. After removal of the polyps, the sphenoid os was cannulated with the straight navigation suction confirming dissection int o the proper cavity. The area around the os was further opened using the microdebrider to enlarge th e sphenoid opening. Bleeding in this area was then controlled with Afrin-soaked pledgets and attenti on was turned to the right side. The right uncinate process was removed using backbiter and 90-degre e Blakesley. The straight navigation suction was then used to assist in dissection of the ethmoid ca vity. Ethmoid partitions were dissected using the curette and then removed using a combination of Rohit arnett and the microdebrider. The posterior-most ethmoid cell was not entered in a goal to reduce d estabilization of the middle turbinate. On the right side, opacified middle turbinate was also noted in review of the preoperative scan. A sickle knife was used to incise into the stacey bullosa and t hick white mucus was noted. A culture was collected from this mucus and sent for microbiology cultur e. The medial portion of the stacey was then removed during ethmoid dissection. Using angled scopes , the frontal recess was likewise dissected and confirmation of opening was confirmed with the naviga tion system. The frontal recess on the right side was noted to be severely edematous and polypoid, b ut strong desire to avoid mucosal stripping and risk of stenosis was noted and decision was made for placement of a steroid eluting stents to this area to provide local drug delivery and reduce swelling and inflammation. The straight navigation suction and 0-degree endoscope were then used to explore the sphenoethmoid region. Additional polyps were removed and the sphenoid was entered using the suct ion. There was no significant mucus or polyps noted within the sphenoid sinus proper. It worked and pledgets were placed to aid in hemostasis. After removal of all the pledgets, hemostasis was felt t o be fair to good. Pledget count was confirmed correct and stents and dissolvable packing was placed as follows: A propel contour was placed within the left frontal recess; however, following deployme nt, the stent was noted to be completely within the frontal sinus rather than within the frontal rece ss as desired and a second splint was placed and placement confirmed visually using the 70-degree end oscope. A propel contour steroid eluting stent was placed within the right frontal recess to provide drug delivery to that edematous mucosa. A standard propel stent was then deployed into the right an d left ethmoid cavities in order to provide local drug delivery within the ethmoid as well as prevent lateralization of the middle turbinate. A XeroGel dissolvable sinus dressing was then placed within the right and left ethmoid cavities. A third piece of XeroGel was placed within the left sphenoid e thmoid recess due to persistent oozing in this area. After several minutes of observation, no additi onal bleeding was noted and the procedure was concluded. The patient was returned to care of anesthe zofia for awakening and extubation in the operating room, which proceeded without difficulty. Complications: None. Disposition: The patient will be discharged home later today in the care of his family and follow up with Dr. Bedolla on July, for postop visit #1. Written instructions regarding the need f or saline irrigations are given to the patient. The patient is instructed to resume his aspirin 1 we ek following the procedure and to continue nasal precautions until his first postoperative visit. LUCILA/ANIVAL Voice ID: [id number] Report ID: [id number]
== END 2020-06-22 14:55 | disposition home or self-care (01) ==
LOC: OR 07:17
PROVIDERS: ATTEND Otolaryngology
PROC: 09BT8ZZ Excision of Left Frontal Sinus, Via Natural or Artificial Opening Endoscopic (ICD-10-PCS; 2020-06-22)
PROC: 09BS8ZZ Excision of Right Frontal Sinus, Via Natural or Artificial Opening Endoscopic (ICD-10-PCS; 2020-06-22)
PROC: 0NTG0ZZ Resection of Left Ethmoid Bone, Open Approach (ICD-10-PCS; 2020-06-22)
PROC: 0NTF0ZZ Resection of Right Ethmoid Bone, Open Approach (ICD-10-PCS; 2020-06-22)
PROC: 8E09XBZ Computer Assisted Procedure of Head and Neck Region (ICD-10-PCS; principal; 2020-06-22 09:15)
DX: J33.9 Nasal polyp, unspecified (principal); I10 Essential (primary) hypertension; Z20.822 Contact with and (suspected) exposure to COVID-19
CPT/HCPCS: 31257; 31253; 31256; 61782 ×2; 93005; 87070; 87205; 88305; 88311; 31255; U0002; J2704; J3010; J1100; J7120 ×2; J7040; J2405; J0171; J2250; J7050

== ENCOUNTER 2021-07-19 07:58 | Emergency (ER) | payer OTHER ==
--- OUTSIDE RECORDS SUMMARY | 2021-07-19 08:05 | XMS REPORT | Continuity of Care Document ---
:1940 Author Organization [facility] t Address [address] [place] [address] Care Team Providers Name Role Phone Angelica Luna Primary Care Physician [phone] ANGELICA JOAQUIN Attending Clinician Unavailable ROBERTO CARLOS HERNANDEZ Attending Clinician Unavailable Jeremy Attending Clinician Doctor Unassigned, Name Attending Clinician Unavailable Mary Ann العراقي S Attending Clinician Sera REESE Attending Clinician Unavailable Jeff Attending Clinician Unavailable Dara MILLER Attending Clinician Unavailable Dara Miller MD Attending Clinician Pob, Lab Main Attending Clinician Unavailable Marcelino Hernandez MD Attending Clinician Nurse, General Surgery Attending Clinician Unavailable MARCELINO HERNANDEZ Admitting Clinician Unavailable Jeff Admitting Clinician Unavailable Marcelino Hernandez MD Admitting Clinician Payers Payer Name Policy Type Policy Number Effective Date Expiration Date S jordyn MEDICARE PART A [id number] 2006 \T\ B 00:00:00 [employer] INDEMNITY [id number] 2019 00:00:00 WELLCARE [place] [id number] 2019 PLUS CLASSIC/VALUE 00:00:00 WELLCARE OF [place] - [id number] 2018 [place] 00:00:00 (MEDICARE REPLACEMENT/ADVANT AGE - HMO) Problems Condition Condition Condition Status Onset Resolution Last Treating Co mments Source Name Details Category Date Date Treatment Clinician Date Chest pain Chest pain Disease Active U nivers 1-31 ity of 00:00: [place] 00 Medical Branch Finger Finger Disease Active Overview: Univer s pain pain 3-10 Formattin ity of 00:00: g of this [place] 00 note Medical might be Branch different from the original. Lt, Rt. hand 530.81/[id number] Diagnosis Active 2014-10-10 Memoria .20 10-04 08:49:00 l 00:00: [place] 530.81/787 00 .20 Active 10/04/2014 [facility] DYSPHAGIA, Diagnosis Active 2014-10-06 Memoria GERD 09-29 14:30:00 l 00:00: [place] DYSPHAGIA, 00 GERD Active 09/29/2014 [facility] Aortic Problem Active 2020-12-21 Memor ia valve 01-02 21:29:42 l disorder Aortic 00:00: Jose Miguel n (disorder) valve 00 disorder (disorder) Active 01/02/2014 Problem 12/21/2020 Data migrated from [employer] on 01/15/15.Da ta migrated from [employer] on 11/04/14. [facility] Pain in Problem Active 2020-12-21 Ashkan magen limb 12-26 21:29:42 l (finding) Pain in 00:00: Herm johnnie limb 00 (finding) Active 12/26/2013 Problem 12/21/2020 Data migrated from [employer] on 01/15/15.Da ta migrated from [employer] on 11/04/14. [facility] her Neuro Long-term Problem Active 2020-12-21 Me moria drug - 21:29:42 l therapy 00:00: Luke (procedure Long-term 00 ) drug therapy (procedure ) Active 10/17/2013 Problem 12/21/2020 Data migrated from [employer] on 01/15/15.Da ta migrated from [employer] on 11/04/14. [facility] her Neuro Hyperchole Problem Active 2011-2020-12-21 M emoria sterolemia - 21:29:42 l (disorder) 00:00: Jose Miguel n Hyperchole 00 sterolemia (disorder) Active 02/26/2012 Problem 12/21/2020 Data migrated from [employer] on 01/15/15.Da ta migrated from [employer] on 11/04/14. [facility] her Neuro Coronary Problem Resolve 2020-12-21 Me moria arterioscl d 21:29:42 l erosis Coronary Jose Miguel n (disorder) arterioscl erosis (disorder) Resolved Problem 12/21/2020 [facility] her [facility], [place] Dysphagia Problem Resolve 2020-12-21 M emoria (disorder) d 21:29:42 l [place] Dysphagia (disorder) Resolved Problem 12/21/2020 [facility] her Neuro, [place] Esophageal Problem Resolve 2020-12-21 Memoria reflux d 21:29:42 l finding [place] (finding) Esophageal reflux finding (finding) Resolved Problem 12/21/2020 [facility] her Neuro, [place] Gastroesop Problem Resolve 2020-12-21 Memoria hageal d 21:29:42 l reflux [place] disease Gastroesop (disorder) hageal reflux disease (disorder) Resolved Problem 12/21/2020 Medical [facility] her Neuro, [place] Hiatal Problem Resolve 2020-12-21 Ashkan magen hernia d 21:29:42 l (disorder) Hiatal Herm johnnie hernia (disorder) Resolved Problem 12/21/2020 [facility] her Neuro, [place] Carpal Problem Active 2020-12-21 Memor ia tunnel 21:29:42 l syndrome Carpal Jose Miguel n (disorder) tunnel syndrome (disorder) Active Problem 12/21/2020 [facility] Cervical Problem Active 2020-12-21 Mem oria radiculopa 21:29:42 l thy Cervical Jose Miguel n (disorder) radiculopa thy (disorder) [facility] Active 2020-12-21 Ashkan magen (finding) 21:29:42 l Dyspnea [place] (finding) Active Problem 12/21/2020 [facility] her Neuro Hypertensi Problem Active 2020-12-21 M emoria ve 21:29:42 l disorder, [place] systemic Hypertensi arterial ve (disorder) disorder, systemic arterial (disorder) Active Problem 12/21/2020 Data migrated from [employer] on 01/15/15.Da ta migrated from [employer] on 11/04/14. 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:29:42 l neuralgia [place] (disorder) Postherpet ic neuralgia (disorder) Active Problem 12/21/2020 [facility] Shoulder Problem Active 2020-12-21 Mem oria pain 21:29:42 l (finding) Shoulder [place] pain (finding) Active Problem 12/21/2020 [facility] her Neuro Excessive Problem Active 2020-12-21 Me moria sweating 21:29:42 l (finding) Luke Excessive sweating (finding) Active Problem 12/21/2020 [facility] her Neuro ESOPHAGEAL Diagnosis Active 2014-10-10 Memoria REFLUX 08:49:00 l [place] ESOPHAGEAL REFLUX Active [facility] DYSPHAGIA Diagnosis Active 2014-10-10 Memoria NOS 08:49:00 l [place] DYSPHAGIA NOS Active [facility] Allergies, Adverse Reactions, Alerts Allergy Allergy Status Severity Reaction(s) Onset Inactive Treating Comm ents Source Name Type Date Date Clinician Lisinopr Propensi Active Cough Univer s il ty to 3-28 ity of adverse 00:00: [place] reaction 00 Medical s Branch LISINOPR DRUG Active COUGH Univers IL INGREDI 3-28 ity of 00:00: [place] 00 Medical Branch Dye Propensi Active Itching Contrast Unive rs ty to 3-10 dye ity of adverse 00:00: [place] reaction Medical s Branch Hydrocod Propensi Active Itching 2016-0 Unive rs one ty to 3-10 ity of adverse 00:00: [place] reaction 00 Medical s Branch DYE DRUG Active Hives Univers INGREDI 3-10 ity of 00:00: [place] 00 Medical Branch HYDROCOD DRUG Active Hives 0 Univers ONE INGREDI 3-10 ity of 00:00: [place] 00 Medical Branch IODINE Drug Active Hives Univers AND Class 3-10 ity of IODIDE 00:00: [place] CONTAINI 00 Medical NG Branch PRODUCTS Iodine Propensi Active Hives 2015- Univers And ty to 3-10 ity of Iodide adverse 00:00: [place] Containi reaction 00 Medica l ng s Branch Products HYDROcod HYDROcod Active Memori a one<sup> one<sup> 9-24 l 1</sup> 1</sup> 05:00: Food Food Active 2008-06 Memoria Latex Latex 1-30 l 00:00: Food Food Active Shortness of 2008-06 Ashkan magen Shellfis Shellfis breath, 1-30 l h h Itching, 00:00: [place] Urticaria 00 (disorder) iodine<s iodine<s Active 2008-06 Memori a up>2</bear up>2</bear 1-30 l p> p> 00:00: [place] 00 lisinopr lisinopr Active Memori a il il l [place] Latex<bear Latex<bear Active Memori a p>2</sup p>2</sup l > > [place] Latex<bear Latex<bear Active Memori a p>3</sup p>3</sup l > > [place] Hydrocor Allergy Active Mild Itching Deanna limon to [facility] Medical e Group Social History Social Habit Start Date Stop Date Quantity Comments Source Exposure to Not sure [facility] SARS-CoV-2 (event) Medica l Branch Alcohol intake 2020-06-15 2020-06-15 0 /d [facility] 00:00:00 00:00:00 Medical Branch Tobacco use and 2015-08-16 2015-08-16 Never used Universit y [place] exposure 00:00:00 00:00:00 Medical Branch Social History 2014-10-06 2014-10-06 Ilana cochran 19:57:23 19:57:23 Sex [birth year] [facility] 00:00:00 00:00:00 Medical Branch Smoking Status Start Date Stop Date Source Former Smoker [facility] Never smoker [facility] Medications Ordered Filled Start Stop Current Ordering Indication Dosage Frequency Signature Comments Components Source Medication Medication Date Date Medication? 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, Weight Escitalopra Yes 10 mg, PO, Memoria m 3-12 Daily, 0 l 16:17: Refill(s) Doxycycline 2019-06 Yes 100 mg, Mem oria 1-06 PO, BID, 0 l 14:30: Refill(s) Luke 00 pregabalin 2019-06 Yes 100 mg = 1 M emoria 100 MG Oral 0-23 cap, PO, l Capsule 21:57: BID, # 60 Sandy nn [Lyrica] 00 cap, 3 Refill(s), Pharmacy: [facility], 165.1, cm, 03/30/20 16:02:00 CDT, Height, 74.545, kg, 03/30/20 16:02:00 CDT, Weight Advil 2019-06 Yes PO, Q6H, 0 Memori a 0-23 Refill(s) l 21:06: [place] 00 pregabalin 2019-06 Yes 50 mg = 1 Me moria 50 MG Oral 0-07 cap, PO, l Capsule 20:38: BID, # 60 Sandy nn [Lyrica] 00 cap, 2 Refill(s), Pharmacy: [facility], 165.1, cm, 03/14/20 15:06:00 CDT, Height, 72.273, kg, 03/14/20 15:06:00 CDT, Weight tramadol 2019-06 Yes 50 mg = 1 Ashkan magen hydrochlori 0-07 tab, PO, l de 50 MG 20:27: Q6H, 0 Luke Oral Tablet 00 Refill(s) gabapentin 2019-06 No 100 mg = 1 M emoria 100 MG Oral 0-07 cap, PO, l Capsule 20:27: TID, # 90 Sandy nn 00 cap, 1 Refill(s) losartan 50 2020-0 Yes 25mg Take 25 mg Univers mg tablet 9-11 by mouth ity of 13:24: daily. [place] [address] Medical Branch aspirin 325 2020-0 Yes 325mg Take 325 U nivers mg tablet 9-11 mg by ity of 13:24: mouth [place] 59 daily. Medical Branch DOCOSAHEXAN 2020-0 Yes Take by Un fredrick OIC 9-11 mouth. ity of ACID/EPA 13:24: [place] (FISH OIL 59 Medical ORAL) Branch vitamin C 2020-0 Yes 1000mg Take 1,000 Univers with kirti 9-11 mg by ity of hips 13:24: mouth [place] (VITAMIN C) 59 daily. Medica l 1,000 mg Branch tablet amLODIPine 2020-0 Yes 2.5mg Take 2.5 Un fredrick 2.5 mg 9-11 mg by ity of tablet 13:24: mouth [place] 59 daily. Medical Branch rosuvastati 2020-0 Yes 20mg Take 20 mg Univers n (CRESTOR) 9-11 by mouth ity of 20 mg 13:24: at [place] tablet 59 bedtime. Medical Branch losartan 50 2020-0 Yes 25mg Take 25 mg Univers mg tablet 9-11 by mouth ity of 13:24: daily. [place] Medical Branch aspirin 325 2020-0 Yes 325mg Take 325 U nivers mg tablet 9-11 mg by ity of 13:24: mouth [place] 59 daily. Medical Branch DOCOSAHEXAN 2020-0 Yes Take by Un fredrick OIC 9-11 mouth. ity of ACID/EPA 13:24: [place] (FISH OIL 59 Medical ORAL) Branch vitamin C 2020-0 Yes 1000mg Take 1,000 Univers with kirti 9-11 mg by ity of hips 13:24: mouth [place] (VITAMIN C) 59 daily. Medica l 1,000 mg Branch tablet amLODIPine 2020-0 Yes 2.5mg Take 2.5 Un fredrick 2.5 mg 9-11 mg by ity of tablet 13:24: mouth [place] 59 daily. Medical Branch rosuvastati 2020-0 Yes 20mg Take 20 mg Univers n (CRESTOR) 9-11 by mouth ity of 20 mg 13:24: at [place] tablet 59 bedtime. Medical Branch losartan 50 2020-0 Yes 25mg Take 25 mg Univers mg tablet 9-11 by mouth ity of 13:24: daily. [place] [address] Medical Branch aspirin 325 2020-0 Yes 325mg Take 325 U nivers mg tablet 9-11 mg by ity of 13:24: mouth [place] 59 daily. Medical Branch DOCOSAHEXAN 2020-0 Yes Take by Un fredrick OIC 9-11 mouth. ity of ACID/EPA 13:24: [place] (FISH OIL 59 Medical ORAL) Branch vitamin C 2020-0 Yes 1000mg Take 1,000 Univers with kirti 9-11 mg by ity of hips 13:24: mouth [place] (VITAMIN C) 59 daily. Medica l 1,000 mg Branch tablet amLODIPine 2020-0 Yes 2.5mg Take 2.5 Un fredrick 2.5 mg 9-11 mg by ity of tablet 13:24: mouth [place] 59 daily. Medical Branch rosuvastati 2020-0 Yes 20mg Take 20 mg Univers n (CRESTOR) 9-11 by mouth ity of 20 mg 13:24: at [place] tablet 59 bedtime. Medical Branch losartan 50 2020-0 Yes 25mg Take 25 mg Univers mg tablet 9-11 by mouth ity of 13:24: daily. [place] [address] Medical Branch aspirin 325 2020-0 Yes 325mg Take 325 U nivers mg tablet 9-11 mg by ity of 13:24: mouth [place] 59 daily. Medical Branch DOCOSAHEXAN 2020-0 Yes Take by Un fredrick OIC 9-11 mouth. ity of ACID/EPA 13:24: [place] (FISH OIL 59 Medical ORAL) Branch vitamin C 2020-0 Yes 1000mg Take 1,000 Univers with kirti 9-11 mg by ity of hips 13:24: mouth [place] (VITAMIN C) 59 daily. Medica l 1,000 mg Branch tablet amLODIPine 2020-0 Yes 2.5mg Take 2.5 Un fredrick 2.5 mg 9-11 mg by ity of tablet 13:24: mouth [place] 59 daily. Medical Branch rosuvastati 2020-0 Yes 20mg Take 20 mg Univers n (CRESTOR) 9-11 by mouth ity of 20 mg 13:24: at [place] tablet 59 bedtime. Medical Branch losartan 50 2020-0 Yes 25mg Take 25 mg Univers mg tablet 9-11 by mouth ity of 13:24: daily. [place] 59 Medical Branch aspirin 325 2020-0 Yes 325mg Take 325 U nivers mg tablet 9-11 mg by ity of 13:24: mouth [place] 59 daily. Medical Branch DOCOSAHEXAN 2020-0 Yes Take by Un fredrick OIC 9-11 mouth. ity of ACID/EPA 13:24: [place] (FISH OIL 59 Medical ORAL) Branch vitamin C 2020-0 Yes 1000mg Take 1,000 Univers with kirti 9-11 mg by ity of hips 13:24: mouth [place] (VITAMIN C) 59 daily. Medica l 1,000 mg Branch tablet amLODIPine 2020-0 Yes 2.5mg Take 2.5 Un fredrick 2.5 mg 9-11 mg by ity of tablet 13:24: mouth [place] 59 daily. Medical Branch rosuvastati 2020-0 Yes 20mg Take 20 mg Univers n (CRESTOR) 9-11 by mouth ity of 20 mg 13:24: at [place] tablet 59 bedtime. Medical Branch losartan 50 2020-0 Yes 25mg Take 25 mg Univers mg tablet 9-11 by mouth ity of 13:24: daily. [place] [address] Medical Branch aspirin 325 2020-0 Yes 325mg Take 325 U nivers mg tablet 9-11 mg by ity of 13:24: mouth [place] 59 daily. Medical Branch DOCOSAHEXAN 2020-0 Yes Take by Un fredrick OIC 9-11 mouth. ity of ACID/EPA 13:24: [place] (FISH OIL 59 Medical ORAL) Branch vitamin C 2020-0 Yes 1000mg Take 1,000 Univers with kirti 9-11 mg by ity of hips 13:24: mouth [place] (VITAMIN C) 59 daily. Medica l 1,000 mg Branch tablet amLODIPine 2020-0 Yes 2.5mg Take 2.5 Un fredrick 2.5 mg 9-11 mg by ity of tablet 13:24: mouth [place] 59 daily. Medical Branch rosuvastati 2020-0 Yes 20mg Take 20 mg Univers n (CRESTOR) 9-11 by mouth ity of 20 mg 13:24: at [place] tablet 59 bedtime. Medical Branch losartan 50 2020-0 Yes 25mg Take 25 mg Univers mg tablet 9-11 by mouth ity of 13:24: daily. [place] [address] Medical Branch aspirin 325 2020-0 Yes 325mg Take 325 U nivers mg tablet 9-11 mg by ity of 13:24: mouth [place] 59 daily. Medical Branch DOCOSAHEXAN 2020-0 Yes Take by Un fredrick OIC 9-11 mouth. ity of ACID/EPA 13:24: [place] (FISH OIL 59 Medical ORAL) Branch vitamin C 2020-0 Yes 1000mg Take 1,000 Univers with kirti 9-11 mg by ity of hips 13:24: mouth [place] (VITAMIN C) 59 daily. Medica l 1,000 mg Branch tablet amLODIPine 2020-0 Yes 2.5mg Take 2.5 Un fredrick 2.5 mg 9-11 mg by ity of tablet 13:24: mouth [place] 59 daily. Medical Branch rosuvastati 2020-0 Yes 20mg Take 20 mg Univers n (CRESTOR) 9-11 by mouth ity of 20 mg 13:24: at [place] tablet 59 bedtime. Medical Branch losartan 50 2020-0 Yes 25mg Take 25 mg Univers mg tablet 9-11 by mouth ity of 13:24: daily. [place] [address] Medical Branch aspirin 325 2020-0 Yes 325mg Take 325 U nivers mg tablet 9-11 mg by ity of 13:24: mouth [place] 59 daily. Medical Branch DOCOSAHEXAN 2020-0 Yes Take by Un fredrick OIC 9-11 mouth. ity of ACID/EPA 13:24: [place] (FISH OIL 59 Medical ORAL) Branch vitamin C 2020-0 Yes 1000mg Take 1,000 Univers with kirti 9-11 mg by ity of hips 13:24: mouth [place] (VITAMIN C) 59 daily. Medica l 1,000 mg Branch tablet amLODIPine 2020-0 Yes 2.5mg Take 2.5 Un fredrick 2.5 mg 9-11 mg by ity of tablet 13:24: mouth [place] 59 daily. Medical Branch rosuvastati 2020-0 Yes 20mg Take 20 mg Univers n (CRESTOR) 9-11 by mouth ity of 20 mg 13:24: at [place] tablet 59 bedtime. Medical Branch losartan 50 2020-0 Yes 25mg Take 25 mg Univers mg tablet 9-11 by mouth ity of 13:24: daily. [place] [address] Medical Branch aspirin 325 2020-0 Yes 325mg Take 325 U nivers mg tablet 9-11 mg by ity of 13:24: mouth [place] 59 daily. Medical Branch DOCOSAHEXAN 2020-0 Yes Take by Un fredrick OIC 9-11 mouth. ity of ACID/EPA 13:24: [place] (FISH OIL 59 Medical ORAL) Branch vitamin C 2020-0 Yes 1000mg Take 1,000 Univers with kirti 9-11 mg by ity of hips 13:24: mouth [place] (VITAMIN C) 59 daily. Medica l 1,000 mg Branch tablet amLODIPine 2020-0 Yes 2.5mg Take 2.5 Un fredrick 2.5 mg 9-11 mg by ity of tablet 13:24: mouth [place] 59 daily. Medical Branch rosuvastati 2020-0 Yes 20mg Take 20 mg Univers n (CRESTOR) 9-11 by mouth ity of 20 mg 13:24: at [place] tablet 59 bedtime. Medical Branch losartan 50 2020-0 Yes 25mg Take 25 mg Univers mg tablet 9-11 by mouth ity of 13:24: daily. Medical Branch aspirin 325 2020-0 Yes 325mg Take 325 U nivers mg tablet 9-11 mg by ity of 13:24: mouth [place] 59 daily. Medical Branch DOCOSAHEXAN 2020-0 Yes Take by Un fredrick OIC 9-11 mouth. ity of ACID/EPA 13:24: [place] (FISH OIL 59 Medical ORAL) Branch vitamin C 2020-0 Yes 1000mg Take 1,000 Univers with kirti 9-11 mg by ity of hips 13:24: mouth [place] (VITAMIN C) 59 daily. Medica l 1,000 mg Branch tablet amLODIPine 2020-0 Yes 2.5mg Take 2.5 Un fredrick 2.5 mg 9-11 mg by ity of tablet 13:24: mouth [place] 59 daily. Medical Branch rosuvastati 2020-0 Yes 20mg Take 20 mg Univers n (CRESTOR) 9-11 by mouth ity of 20 mg 13:24: at [place] tablet 59 bedtime. Medical Branch losartan 50 2020-0 Yes 25mg Take 25 mg Univers mg tablet 9-11 by mouth ity of 08:24: daily. Medical Branch aspirin 325 2020-0 Yes 325mg Take 325 U nivers mg tablet 9-11 mg by ity of 08:24: mouth [place] 59 daily. Medical Branch DOCOSAHEXAN 2020-0 Yes Take by Un fredrick OIC 9-11 mouth. ity of ACID/EPA 08:24: [place] (FISH OIL 59 Medical ORAL) Branch vitamin C 2020-0 Yes 1000mg Take 1,000 Univers with kirti 9-11 mg by ity of hips 08:24: mouth [place] (VITAMIN C) 59 daily. Medica l 1,000 mg Branch tablet amLODIPine 2020-0 Yes 2.5mg Take 2.5 Un fredrick 2.5 mg 9-11 mg by ity of tablet 08:24: mouth [place] 59 daily. Medical Branch rosuvastati 2020-0 Yes 20mg Take 20 mg Univers n (CRESTOR) 9-11 by mouth ity of 20 mg 08:24: at [place] tablet 59 bedtime. Medical Branch losartan 50 2020-0 Yes 25mg Take 25 mg Univers mg tablet 9-11 by mouth ity of 08:24: daily. Medical Branch aspirin 325 2020-0 Yes 325mg Take 325 U nivers mg tablet 9-11 mg by ity of 08:24: mouth [place] 59 daily. Medical Branch DOCOSAHEXAN 2020-0 Yes Take by Un fredrick OIC 9-11 mouth. ity of ACID/EPA 08:24: [place] (FISH OIL 59 Medical ORAL) Branch vitamin C 2020-0 Yes 1000mg Take 1,000 Univers with kirti 9-11 mg by ity of hips 08:24: mouth [place] (VITAMIN C) 59 daily. Medica l 1,000 mg Branch tablet amLODIPine 2020-0 Yes 2.5mg Take 2.5 Un fredrick 2.5 mg 9-11 mg by ity of tablet 08:24: mouth [place] 59 daily. Medical Branch rosuvastati 2020-0 Yes 20mg Take 20 mg Univers n (CRESTOR) 9-11 by mouth ity of 20 mg 08:24: at [place] tablet 59 bedtime. Medical Branch losartan 50 2020-0 Yes 25mg Take 25 mg Univers mg tablet 9-11 by mouth ity of 08:24: daily. Medical Branch aspirin 325 2020-0 Yes 325mg Take 325 U nivers mg tablet 9-11 mg by ity of 08:24: mouth [place] 59 daily. Medical Branch DOCOSAHEXAN 2020-0 Yes Take by Un fredrick OIC 9-11 mouth. ity of ACID/EPA 08:24: [place] (FISH OIL 59 Medical ORAL) Branch vitamin C 2020-0 Yes 1000mg Take 1,000 Univers with kirti 9-11 mg by ity of hips 08:24: mouth [place] (VITAMIN C) 59 daily. Medica l 1,000 mg Branch tablet amLODIPine 2020-0 Yes 2.5mg Take 2.5 Un fredrick 2.5 mg 9-11 mg by ity of tablet 08:24: mouth [place] 59 daily. Medical Branch rosuvastati 2020-0 Yes 20mg Take 20 mg Univers n (CRESTOR) 9-11 by mouth ity of 20 mg 08:24: at [place] tablet 59 bedtime. Medical Branch losartan 50 2020-0 Yes 25mg Take 25 mg Univers mg tablet 4-23 by mouth ity of 14:25: daily. [place] 05 Medical Branch aspirin 325 2020-0 Yes 325mg Take 325 U nivers mg tablet 4-23 mg by ity of 14:25: mouth [place] 05 daily. Medical Branch DOCOSAHEXAN 2020-0 Yes Take by Un fredrick OIC 4-23 mouth. ity of ACID/EPA 14:25: [place] (FISH OIL 05 Medical ORAL) Branch levoFLOXaci 2020-0 Yes 500mg Take 500 U nivers n 250 mg 4-23 mg by ity of tablet 14:25: mouth [place] 05 every 24 Medical (twenty-fo Branch ur) hours. vitamin C 2020-0 Yes 1000mg Take 1,000 Univers with kirti 4-23 mg by ity of hips 14:25: mouth [place] (VITAMIN C) 05 daily. Medica l 1,000 mg Branch tablet amLODIPine 2020-0 Yes 2.5mg Take 2.5 Un fredrick 2.5 mg 4-23 mg by ity of tablet 14:25: mouth [place] 05 daily. Medical Branch rosuvastati 2020-0 Yes 20mg Take 20 mg Univers n (CRESTOR) 4-23 by mouth ity of 20 mg 14:25: at [place] tablet 05 bedtime. Medical Branch losartan 50 2020-0 Yes 25mg Take 25 mg Univers mg tablet 4-23 by mouth ity of 14:25: daily. [place] 05 Medical Branch aspirin 325 2020-0 Yes 325mg Take 325 U nivers mg tablet 4-23 mg by ity of 14:25: mouth [place] 05 daily. Medical Branch DOCOSAHEXAN 2020-0 Yes Take by Un fredrick OIC 4-23 mouth. ity of ACID/EPA 14:25: [place] (FISH OIL 05 Medical ORAL) Branch levoFLOXaci 2020-0 Yes 500mg Take 500 U nivers n 250 mg 4-23 mg by ity of tablet 14:25: mouth [place] 05 every 24 Medical ( Branch ur) hours. vitamin C 2020-0 Yes 1000mg Take 1,000 Univers with kirti 4-23 mg by ity of hips 14:25: mouth [place] (VITAMIN C) 05 daily. Medica l 1,000 mg Branch tablet amLODIPine 2020-0 Yes 2.5mg Take 2.5 Un fredrick 2.5 mg 4-23 mg by ity of tablet 14:25: mouth [place] 05 daily. Medical Branch rosuvastati 2020-0 Yes 20mg Take 20 mg Univers n (CRESTOR) 4-23 by mouth ity of 20 mg 14:25: at [place] tablet 05 bedtime. Medical Branch losartan 50 2020-0 Yes 25mg Take 25 mg Univers mg tablet 4-23 by mouth ity of 14:25: daily. 05 Medical Branch aspirin 325 2020-0 Yes 325mg Take 325 U nivers mg tablet 4-23 mg by ity of 14:25: mouth [place] 05 daily. Medical Branch DOCOSAHEXAN 2020-0 Yes Take by Un fredrick OIC 4-23 mouth. ity of ACID/EPA 14:25: [place] (FISH OIL 05 Medical ORAL) Branch levoFLOXaci 2020-0 Yes 500mg Take 500 U nivers n 250 mg 4-23 mg by ity of tablet 14:25: mouth [place] 05 every 24 Medical ( Branch ur) hours. vitamin C 2020-0 Yes 1000mg Take 1,000 Univers with kirti 4-23 mg by ity of hips 14:25: mouth [place] (VITAMIN C) 05 daily. Medica l 1,000 mg Branch tablet amLODIPine 2020-0 Yes 2.5mg Take 2.5 Un fredrick 2.5 mg 4-23 mg by ity of tablet 14:25: mouth [place] 05 daily. Medical Branch rosuvastati 2020-0 Yes 20mg Take 20 mg Univers n (CRESTOR) 4-23 by mouth ity of 20 mg 14:25: at [place] tablet 05 bedtime. Medical Branch losartan 50 2020-0 Yes 25mg Take 25 mg Univers mg tablet 4-23 by mouth ity of 14:25: daily. Medical Branch aspirin 325 2020-0 Yes 325mg Take 325 U nivers mg tablet 4-23 mg by ity of 14:25: mouth [place] 05 daily. Medical Branch DOCOSAHEXAN 2020-0 Yes Take by Un fredrick OIC 4-23 mouth. ity of ACID/EPA 14:25: [place] (FISH OIL 05 Medical ORAL) Branch levoFLOXaci 2020-0 Yes 500mg Take 500 U nivers n 250 mg 4-23 mg by ity of tablet 14:25: mouth [place] 05 every 24 Medical ( Branch ur) hours. vitamin C 2020-0 Yes 1000mg Take 1,000 Univers with kirti 4-23 mg by ity of hips 14:25: mouth [place] (VITAMIN C) 05 daily. Medica l 1,000 mg Branch tablet amLODIPine 2020-0 Yes 2.5mg Take 2.5 Un fredrick 2.5 mg 4-23 mg by ity of tablet 14:25: mouth [place] 05 daily. Medical Branch rosuvastati 2020-0 Yes 20mg Take 20 mg Univers n (CRESTOR) 4-23 by mouth ity of 20 mg 14:25: at [place] tablet 05 bedtime. Medical Branch losartan 50 2020-0 Yes 25mg Take 25 mg Univers mg tablet 4-23 by mouth ity of 14:25: daily. [place] 05 [facility] Branch aspirin 325 2020-0 Yes 325mg Take 325 U nivers mg tablet 4-23 mg by ity of 14:25: mouth [place] 05 daily. Medical Branch DOCOSAHEXAN 2020-0 Yes Take by Un fredrick OIC 4-23 mouth. ity of ACID/EPA 14:25: [place] (FISH OIL 05 Medical ORAL) Branch levoFLOXaci 2020-0 Yes 500mg Take 500 U nivers n 250 mg 4-23 mg by ity of tablet 14:25: mouth [place] 05 every 24 Medical (- Branch ur) hours. vitamin C 2020-0 Yes 1000mg Take 1,000 [facility] with kirti 4-23 mg by ity of hips 14:25: mouth [place] (VITAMIN C) 05 daily. Medica l 1,000 mg Branch tablet amLODIPine 2020-0 Yes 2.5mg Take 2.5 Un [facility]rick 2.5 mg 4-23 mg by ity of tablet 14:25: mouth [place] 05 daily. Medical Branch rosuvastati 2020-0 Yes 20mg Take 20 mg Univers n (CRESTOR) 4-23 by mouth ity of 20 mg 14:25: at [place] tablet 05 bedtime. Medical Branch losartan 50 2020-0 Yes 25mg Take 25 mg [facility] mg tablet 4-23 by mouth ity of 14:25: daily. Medical Branch aspirin 325 2020-0 Yes 325mg Take 325 U nivers mg tablet 4-23 mg by ity of 14:25: mouth [place] 05 daily. Medical Branch DOCOSAHEXAN 2020-0 Yes Take by Un [facility] OIC 4-23 mouth. ity of ACID/EPA 14:25: [place] (FISH OIL 05 Medical ORAL) Branch levoFLOXaci 2020-0 Yes 500mg Take 500 U nivers n 250 mg 4-23 mg by ity of tablet 14:25: mouth [place] 05 every 24 Medical (twenty-fo Branch ur) hours. vitamin C 2020-0 Yes 1000mg Take 1,000 [facility] with kirti 4-23 mg by ity of hips 14:25: mouth [place] (VITAMIN C) 05 daily. Medica l 1,000 mg Branch tablet amLODIPine 2020-0 Yes 2.5mg Take 2.5 Un [facility] 2.5 mg 4-23 mg by ity of tablet 14:25: mouth [place] 05 daily. Medical Branch rosuvastati 2020-0 Yes 20mg Take 20 mg [facility] n (CRESTOR) 4-23 by mouth ity of 20 mg 14:25: at [place] tablet 05 bedtime. Medical Branch losartan 50 2020-0 Yes 25mg Take 25 mg [facility] mg tablet 4-23 by mouth ity of 14:25: daily. Medical Branch aspirin 325 2020-0 Yes 325mg Take 325 U nivers mg tablet 4-23 mg by ity of 14:25: mouth [place] 05 daily. Medical Branch DOCOSAHEXAN 2020-0 Yes Take by [facility] OIC 4-23 mouth. ity of ACID/EPA 14:25: [place] (FISH OIL 05 Medical ORAL) Branch levoFLOXaci 2020-0 Yes 500mg Take 500 U nivers n 250 mg 4-23 mg by ity of tablet 14:25: mouth [place] 05 every 24 Medical (twenty-fo Branch ur) hours. vitamin C 2020-0 Yes 1000mg Take 1,000 [facility] with kirti 4-23 mg by ity of hips 14:25: mouth [place] (VITAMIN C) 05 daily. Medica l 1,000 mg Branch tablet amLODIPine 2020-0 Yes 2.5mg Take 2.5 [facility] 2.5 mg 4-23 mg by ity of tablet 14:25: mouth [place] 05 daily. Medical Branch rosuvastati 2020-0 Yes 20mg Take 20 mg Univers n (CRESTOR) 4-23 by mouth ity of 20 mg 14:25: at [place] tablet 05 bedtime. Medical Branch losartan 50 2020-0 Yes 25mg Take 25 mg [facility] mg tablet 4-23 by mouth ity of 14:25: daily. Medical Branch aspirin 325 2020-0 Yes 325mg Take 325 U nivers mg tablet 4-23 mg by ity of 14:25: mouth [place] 05 daily. Medical Branch DOCOSAHEXAN 2020-0 Yes Take by [facility] OIC 4-23 mouth. ity of ACID/EPA 14:25: [place] (FISH OIL 05 Medical ORAL) Branch levoFLOXaci 2020-0 Yes 500mg Take 500 U nivers n 250 mg 4-23 mg by ity of tablet 14:25: mouth [place] 05 every 24 Medical ( Branch ur) hours. vitamin C 2020-0 Yes 1000mg Take 1,000 [facility] with kirti 4-23 mg by ity of hips 14:25: mouth [place] (VITAMIN C) 05 daily. Medica l 1,000 mg Branch tablet amLODIPine 2020-0 Yes 2.5mg Take 2.5 [facility] 2.5 mg 4-23 mg by ity of tablet 14:25: mouth [place] 05 daily. Medical Branch rosuvastati 2020-0 Yes 20mg Take 20 mg Univers n (CRESTOR) 4-23 by mouth ity of 20 mg 14:25: at [place] tablet 05 bedtime. Medical Branch losartan 50 2020-0 Yes 25mg Take 25 mg [facility] mg tablet 4-23 by mouth ity of 14:25: daily. Medical Branch aspirin 325 2020-0 Yes 325mg Take 325 U nivers mg tablet 4-23 mg by ity of 14:25: mouth [place] 05 daily. Medical Branch DOCOSAHEXAN 2020-0 Yes Take by Un [facility] OIC 4-23 mouth. ity of ACID/EPA 14:25: [place] (FISH OIL 05 Medical ORAL) Branch levoFLOXaci 2020-0 Yes 500mg Take 500 U nivers n 250 mg 4-23 mg by ity of tablet 14:25: mouth [place] 05 every 24 Medical (twenty-fo Branch ur) hours. vitamin C 2020-0 Yes 1000mg Take 1,000 [facility] with kirti 4-23 mg by ity of hips 14:25: mouth [place] (VITAMIN C) 05 daily. Medica l 1,000 mg Branch tablet amLODIPine 2020-0 Yes 2.5mg Take 2.5 Un [facility] 2.5 mg 4-23 mg by ity of tablet 14:25: mouth [place] 05 daily. Medical Branch rosuvastati 2020-0 Yes 20mg Take 20 mg [facility] n (CRESTOR) 4-23 by mouth ity of 20 mg 14:25: at [place] tablet 05 bedtime. Medical Branch losartan 50 2020-0 Yes 25mg Take 25 mg [facility] mg tablet 4-23 by mouth ity of 14:25: daily. 05 Medical Branch aspirin 325 2020-0 Yes 325mg Take 325 U nivers mg tablet 4-23 mg by ity of 14:25: mouth [place] 05 daily. Medical Branch DOCOSAHEXAN 2020-0 Yes Take by [facility] OIC 4-23 mouth. ity of ACID/EPA 14:25: [place] (FISH OIL 05 Medical ORAL) Branch levoFLOXaci 2020-0 Yes 500mg Take 500 U nivers n 250 mg 4-23 mg by ity of tablet 14:25: mouth [place] 05 every 24 Medical (twenty-fo Branch ur) hours. vitamin C 2020-0 Yes 1000mg Take 1,000 [facility] with kirti 4-23 mg by ity of hips 14:25: mouth [place] (VITAMIN C) 05 daily. Medica l 1,000 mg Branch tablet amLODIPine 2020-0 Yes 2.5mg Take 2.5 Un [facility] 2.5 mg 4-23 mg by ity of tablet 14:25: mouth [place] 05 daily. Medical Branch rosuvastati 2020-0 Yes 20mg Take 20 mg Univers n (CRESTOR) 4-23 by mouth ity of 20 mg 14:25: at [place] tablet 05 bedtime. Medical Branch losartan 50 2020-0 Yes 25mg Take 25 mg [facility] mg tablet 4-23 by mouth ity of 14:25: daily. [place] 05 [facility] aspirin 325 2020-0 Yes 325mg Take 325 U nivers mg tablet 4-23 mg by ity of 14:25: mouth [place] 05 daily. Medical Branch DOCOSAHEXAN 2020-0 Yes Take by [facility] OIC 4-23 mouth. ity of ACID/EPA 14:25: [place] (FISH OIL 05 Medical ORAL) Branch levoFLOXaci 2020-0 Yes 500mg Take 500 U nivers n 250 mg 4-23 mg by ity of tablet 14:25: mouth [place] 05 every 24 Medical ( Branch ur) hours. vitamin C 2020-0 Yes 1000mg Take 1,000 [facility] with kirti 4-23 mg by ity of hips 14:25: mouth [place] (VITAMIN C) 05 daily. Medica l 1,000 mg Branch tablet amLODIPine 2020-0 Yes 2.5mg Take 2.5 Un [facility] 2.5 mg 4-23 mg by ity of tablet 14:25: mouth [place] 05 daily. Medical Branch rosuvastati 2020-0 Yes 20mg Take 20 mg Univers n (CRESTOR) 4-23 by mouth ity of 20 mg 14:25: at [place] tablet 05 bedtime. Medical Branch losartan 50 2020-0 Yes 25mg Take 25 mg Univers mg tablet 4-23 by mouth ity of 14:25: daily. Medical Branch aspirin 325 2020-0 Yes 325mg Take 325 U nivers mg tablet 4-23 mg by ity of 14:25: mouth [place] 05 daily. Medical Branch DOCOSAHEXAN 2020-0 Yes Take by Un [facility] OIC 4-23 mouth. ity of ACID/EPA 14:25: [place] (FISH OIL 05 Medical ORAL) Branch levoFLOXaci 2020-0 Yes 500mg Take 500 U nivers n 250 mg 4-23 mg by ity of tablet 14:25: mouth [place] 05 every 24 Medical ( Branch ur) hours. vitamin C 2020-0 Yes 1000mg Take 1,000 [facility] with kirti 4-23 mg by ity of hips 14:25: mouth [place] (VITAMIN C) 05 daily. Medica l 1,000 mg Branch tablet amLODIPine 2020-0 Yes 2.5mg Take 2.5 Un [facility] 2.5 mg 4-23 mg by ity of tablet 14:25: mouth [place] 05 daily. Medical Branch rosuvastati 2020-0 Yes 20mg Take 20 mg Univers n (CRESTOR) 4-23 by mouth ity of 20 mg 14:25: at [place] tablet 05 bedtime. Medical Branch levoFLOXaci 2020-0 Yes 500mg Take 500 U nivers n 250 mg 4-23 mg by ity of tablet 14:25: mouth [place] 05 every 24 Medical (twenty-fo Branch ur) hours. levoFLOXaci 2020-0 Yes 500mg Take 500 U nivers n 250 mg 4-23 mg by ity of tablet 14:25: mouth [place] 05 every 24 Medical (twenty-fo Branch ur) hours. levoFLOXaci 2020-0 Yes 500mg Take 500 U nivers n 250 mg 4-23 mg by ity of tablet 14:25: mouth [place] 05 every 24 Medical (twenty-fo Branch ur) hours. levoFLOXaci 2020-0 Yes 500mg Take 500 U nivers n 250 mg 4-23 mg by ity of tablet 14:25: mouth [place] 05 every 24 Medical (twenty-fo Branch ur) hours. levoFLOXaci 2020-0 Yes 500mg Take 500 U nivers n 250 mg 4-23 mg by ity of tablet 14:25: mouth [place] 05 every 24 Medical (twenty-fo Branch ur) hours. levoFLOXaci 2020-0 Yes 500mg Take 500 U nivers n 250 mg 4-23 mg by ity of tablet 14:25: mouth [place] 05 every 24 Medical (twenty-fo Branch ur) hours. levoFLOXaci 2020-0 Yes 500mg Take 500 U nivers n 250 mg 4-23 mg by ity of tablet 14:25: mouth [place] 05 every 24 Medical (twenty-fo Branch ur) hours. levoFLOXaci 2020-0 Yes 500mg Take 500 U nivers n 250 mg 4-23 mg by ity of tablet 14:25: mouth [place] 05 every 24 Medical (twenty-fo Branch ur) hours. levoFLOXaci 2020-0 Yes 500mg Take 500 U nivers n 250 mg 4-23 mg by ity of tablet 14:25: mouth [place] 05 every 24 Medical (twenty-fo Branch ur) hours. levoFLOXaci 2020-0 Yes 500mg Take 500 U nivers n 250 mg 4-23 mg by ity of tablet 14:25: mouth [place] 05 every 24 Medical (twenty-fo Branch ur) hours. lactated 2020-0 Yes 1000mL at 75 Univer s ringers IV 4-23 mL/hr, ity of infusion 14:15: 1,000 [place], [place] 1[place] 00 IV Medical Infusion, Branch CONTINUOUS , Starting Marian 09/29/19 at 0915, Until Discontinu ed, Routine, PACU ondansetron 2020-0 Yes 4mg 4 mg, Slow Univers (ZOFRAN 4-23 IV Push, ity of (PF)) 14:11: PRN, 1 [place] injection 4 16 dose, Medical mg Starting Branch [place] 09/29/19 at 0911, Until Discontinu ed, Routine, Nausea and Vomiting (N/V), PACU dexamethaso 2020-0 Yes PRN, Univer s ne 09-28 Starting ity of (DECADRON) 13:45: Marian [place] 0.4 mg/ 0.1 00 09/29/19 at [place] dical mL 0845, [place] intravitrea Until l syringe Discontinu ed, 0.1 mL, Intra-op EPINEPHrine 2020-0 Yes PRN, Univ s (PF) 09-28 Starting ity of 1:1,000 (1 13:44: Marian [place] mg/mL) 00 09/29/19 at [facility] (ADRENALIN 08, [place] (PF)) Until injection Discontinu ed, Routine, Intra-op gentamicin 2020-0 Yes PRN, Univers injection 09-28 Starting ity of 13:44: Marian [place] 00 09/29/19 at Medical [address] [place] [address] Until Discontinu ed, SHEREEN, Intra-op neomycin-po 2020-0 Yes PRN, [facility] s lymyxin-dex 09-28 Starting ity of amethasone 13:44: Marian [place] (MAXITROL) 00 09/29/19 at [facility] ical [address] [place] [address] mg/g-10,000 Until unit/g-0.1 Discontinu % ed, ophthalmic Routine, ointment Intra-op water for 2020-0 Yes PRN, Univers irrigation 09-28 Starting ity o f irrigation 13:44: Marian [place] solution 00 09/29/19 at Medic al [address] [place] [address] Until Discontinu ed, Routine, Intra-op DUOVISC 2020-0 Yes PRN, Univers (DUOVISC 09-28 Starting ity of VISCO 13:44: Marian [place] ELASTIC) 3 00 09/29/19 at [facility] ical %-4 %(0.5 0844, [place] mL) 1 % Until (0.55 mL) Discontinu intraocular ed, injection Routine, Intra-op ceFAZolin 2020-0 Yes PRN, Univers (ANCEF) 09-28 Starting ity of 1,000 mg in 13:43: Marian [place] sterile 00 09/29/19 at Medica l water for 0843, [place] injection Until 10 mL 1 Discontinu gram SIVP ed, SHEREEN, syringe Intra-op balanced 2020-0 Yes PRN, Univers salt soln 09-28 Starting ity of no.2 irrig. 13:43: [facility] (BSS) 00 09/29/19 at [facility] ophthalmic 0843, [place] solution Until Discontinu ed, Routine, Intra-op eye block 2020-0 Yes PRN, Univers syringe 11 09-28 Starting ity o f mL 13:36: Marian [place] 09/29/19 at [facility] 0836, [place] Until Discontinu ed, Intra-op tetracaine 2020-0 Yes PRN, Univers (PONTOCAINE 09-28 Starting ity of ) 0.5 % 13:36: [facility] ophthalmic 09/29/19 at [facility] ical drops 0836, [place] Until Discontinu ed, Routine, Intra-op mydriatic 2020-0 2020- No .5mL 0.5 mL, [facility] ers #5 09-28 Left Eye, ity of ophthalmic 12:00: 12:02 ONCE, 1 Ehsan as solution 00 :00 dose, [place] Medica l 0.5 mL 09/29/19 at [place] syringe 0700, Routine, DSU Pre-op lactated 2020-0 2020- No 1000mL at [address] [place] [address] rs ringers IV 09-28 mL/hr, ity of infusion 11:45: 11:50 1,000 mL, Ehsan as 1,000 mL 00 :00 IV Medical Infusion, [place] ONCE, 1 dose, [place] 09/29/19 at 0645, Routine, DSU Pre-op levoFLOXaci 2020-0 Yes 500mg Take 500 U nivers n 250 mg 4-23 mg by ity of tablet 09:25: mouth [place] 05 every 24 Medical (twenty- [place] ur) hours. levoFLOXaci 2020-0 Yes 500mg Take 500 U nivers n 250 mg 4-23 mg by ity of tablet 09:25: mouth [place] 05 every 24 Medical (twenty- [place] ur) hours. levoFLOXaci 2020-0 Yes 500mg Take 500 U nivers n 250 mg 4-23 mg by ity of tablet 09:25: mouth [place] 05 every 24 Medical (twenty- [place] ur) hours. levoFLOXaci 2020-0 Yes 500mg Take 500 U nivers n 250 mg 4-20 mg by ity of tablet 18:47: mouth [place] 44 every 24 Medical (twenty-fo Branch ur) hours. amLODIPine 2020-0 Yes 2.5mg Take 2.5 Un [facility]rick 2.5 mg 4-20 mg by ity of tablet 18:47: mouth [place] 44 daily. Medical Branch levoFLOXaci 2020-0 Yes 500mg Take 500 U nivers n 250 mg 4-20 mg by ity of tablet 18:47: mouth [place] 44 every 24 Medical (twenty-fo Branch ur) hours. amLODIPine 2020-0 Yes 2.5mg Take 2.5 Un [facility] 2.5 mg 4-20 mg by ity of tablet 18:47: mouth [place] 44 daily. Medical Branch levoFLOXaci 2020-0 Yes 500mg Take 500 U nivers n 250 mg 4-20 mg by ity of tablet 18:47: mouth [place] 44 every 24 Medical (twenty-fo Branch ur) hours. amLODIPine 2020-0 Yes 2.5mg Take 2.5 Un [facility] 2.5 mg 4-20 mg by ity of tablet 18:47: mouth [place] 44 daily. Medical Branch levoFLOXaci 2020-0 Yes 500mg Take 500 U nivers n 250 mg 4-20 mg by ity of tablet 18:47: mouth [place] 44 every 24 Medical (twenty-fo Branch ur) hours. amLODIPine 2020-0 Yes 2.5mg Take 2.5 Un [facility] 2.5 mg 4-20 mg by ity of tablet 18:47: mouth [place] 44 daily. Medical Branch losartan 50 2020-0 Yes 25mg Take 25 mg Univers mg tablet 3-05 by mouth ity of 16:53: daily. [place] 45 Medical Branch aspirin 325 2020-0 Yes 325mg Take 325 U nivers mg tablet 3-05 mg by ity of 16:53: mouth [place] 45 daily. Medical Branch DOCOSAHEXAN 2020-0 Yes Take by Un [facility] OIC 3-05 mouth. ity of ACID/EPA 16:53: [place] (FISH OIL 45 Medical ORAL) Branch vitamin C 2020-0 Yes 1000mg Take 1,000 Univers with kirti 3-05 mg by ity of hips 16:53: mouth [place] (VITAMIN C) 45 daily. Medica l 1,000 mg Branch tablet rosuvastati 2020-0 Yes 20mg Take 20 mg Univers n (CRESTOR) 3-05 by mouth ity of 20 mg 16:53: at [place] tablet 45 bedtime. Medical Branch losartan 50 2020-0 Yes 25mg Take 25 mg Univers mg tablet 3-05 by mouth ity of 16:53: daily. Medical Branch aspirin 325 2020-0 Yes 325mg Take 325 U nivers mg tablet 3-05 mg by ity of 16:53: mouth [place] 45 daily. Medical Branch DOCOSAHEXAN 2020-0 Yes Take by Un [facility] OIC 3-05 mouth. ity of ACID/EPA 16:53: [place] (FISH OIL 45 Medical ORAL) Branch vitamin C 2020-0 Yes 1000mg Take 1,000 Univers with kirti 3-05 mg by ity of hips 16:53: mouth [place] (VITAMIN C) 45 daily. Medica l 1,000 mg Branch tablet rosuvastati 2020-0 Yes 20mg Take 20 mg Univers n (CRESTOR) 3-05 by mouth ity of 20 mg 16:53: at [place] tablet 45 bedtime. Medical Branch losartan 50 2020-0 Yes 25mg Take 25 mg Univers mg tablet 3-05 by mouth ity of 16:53: daily. Medical Branch aspirin 325 2020-0 Yes 325mg Take 325 U nivers mg tablet 3-05 mg by ity of 16:53: mouth [place] 45 daily. Medical Branch DOCOSAHEXAN 2020-0 Yes Take by Un f[facility] OIC 3-05 mouth. ity of ACID/EPA 16:53: [place] (FISH OIL 45 Medical ORAL) Branch vitamin C 2020-0 Yes 1000mg Take 1,000 Univers with kirti 3-05 mg by ity of hips 16:53: mouth [place] (VITAMIN C) 45 daily. Medica l 1,000 mg Branch tablet rosuvastati 2020-0 Yes 20mg Take 20 mg Univers n (CRESTOR) 3-05 by mouth ity of 20 mg 16:53: at [place] tablet 45 bedtime. Medical Branch losartan 50 2020-0 Yes 25mg Take 25 mg Univers mg tablet 3-05 by mouth ity of 16:53: daily. Medical Branch aspirin 325 2020-0 Yes 325mg Take 325 U nivers mg tablet 3-05 mg by ity of 16:53: mouth [place] 45 daily. Medical Branch DOCOSAHEXAN 2020-0 Yes Take by Un [facility] OIC 3-05 mouth. ity of ACID/EPA 16:53: [place] (FISH OIL 45 Medical ORAL) Branch vitamin C 2020-0 Yes 1000mg Take 1,000 Univers with kirti 3-05 mg by ity of hips 16:53: mouth [place] (VITAMIN C) 45 daily. Medica l 1,000 mg Branch tablet rosuvastati 2020-0 Yes 20mg Take 20 mg Univers n (CRESTOR) 3-05 by mouth ity of 20 mg 16:53: at [place] tablet 45 bedtime. Medical Branch losartan 50 2020-0 Yes 25mg Take 25 mg Univers mg tablet 3-05 by mouth ity of 16:53: daily. 45 Medical Branch aspirin 325 2020-0 Yes 325mg Take 325 U nivers mg tablet 3-05 mg by ity of 16:53: mouth [place] 45 daily. Medical Branch DOCOSAHEXAN 2020-0 Yes Take by Un [facility] OIC 3-05 mouth. ity of ACID/EPA 16:53: [place] (FISH OIL 45 Medical ORAL) Branch levoFLOXaci 2020-0 Yes 500mg Take 500 U nivers n 250 mg 3-05 mg by ity of tablet 16:53: mouth [place] 45 every 24 Medical (twenty-fo Branch ur) hours. vitamin C 2020-0 Yes 1000mg Take 1,000 Univers with kirti 3-05 mg by ity of hips 16:53: mouth [place] (VITAMIN C) 45 daily. Medica l 1,000 mg Branch tablet amLODIPine 2020-0 Yes 2.5mg Take 2.5 Un [facility] 2.5 mg 3-05 mg by ity of tablet 16:53: mouth [place] 45 daily. Medical Branch rosuvastati 2020-0 Yes 20mg Take 20 mg Univers n (CRESTOR) 3-05 by mouth ity of 20 mg 16:53: at [place] tablet 45 bedtime. Medical Branch losartan 50 2020-0 Yes 25mg Take 25 mg Univers mg tablet 3-05 by mouth ity of 16:53: daily. 45 Medical Branch aspirin 325 2020-0 Yes 325mg Take 325 U nivers mg tablet 3-05 mg by ity of 16:53: mouth [place] 45 daily. Medical Branch DOCOSAHEXAN 2020-0 Yes Take by Un [facility] OIC 3-05 mouth. ity of ACID/EPA 16:53: [place] (FISH OIL 45 Medical ORAL) Branch levoFLOXaci 2020-0 Yes 500mg Take 500 U nivers n 250 mg 3-05 mg by ity of tablet 16:53: mouth [place] 45 every 24 Medical (twenty-fo Branch ur) hours. vitamin C 2020-0 Yes 1000mg Take 1,000 Univers with kirti 3-05 mg by ity of hips 16:53: mouth [place] (VITAMIN C) 45 daily. Medica l 1,000 mg Branch tablet amLODIPine 2020-0 Yes 2.5mg Take 2.5 Un [facility]rick 2.5 mg 3-05 mg by ity of tablet 16:53: mouth [place] 45 daily. Medical Branch rosuvastati 2020-0 Yes 20mg Take 20 mg Univers n (CRESTOR) 3-05 by mouth ity of 20 mg 16:53: at [place] tablet 45 bedtime. Medical Branch lactated 2020-0 Yes 1000mL at 75 Univer s ringers IV 3-05 mL/hr, ity of infusion 16:30: 1,000 mL, [place] 1,000 mL 00 IV Medical Infusion, Branch CONTINUOUS , Starting [place] 08/11/19 at 1030, Until Discontinu ed, Routine, PACU FENTanyl PF 2020-0 Yes 25ug 25 mcg, Uni vers (SUBLIMAZE 3-05 Slow IV ity of (PF)) 16:24: Push, [place] injection 13 Q5MIN PRN, Medi mery 25 mcg 4 doses, Branch Starting [place] 08/11/19 at 1024, Until Discontinu ed, Routine, Pain (scale 4-6), PACU ondansetron 2020-0 Yes 4mg 4 mg, Slow Univers (ZOFRAN 3-05 IV Push, ity of (PF)) 16:24: PRN, 1 [place] injection 4 13 dose, Medical mg Starting Branch [place] 08/11/19 at 1024, Until Discontinu ed, Routine, Nausea and Vomiting (N/V), PACU sodium 2020-0 Yes PRN, Univers chloride 3-05 Starting ity of (NS) 16:14: [place] 08/11/19 [place] injection 00 at 1014, Medica l Until Branch Discontinu ed, Routine, Intra-op neomycin-po 2020-0 Yes PRN, Univer s lymyxin-dex 3-05 Starting ity of amethasone 16:14: [place] 08/11/19 [place] (MAXITROL) 00 at 1014, Medic al 3.5 Until Branch mg/g-10,000 Discontinu unit/g-0.1 ed, % Routine, ophthalmic Intra-op ointment dexamethaso 2020-0 Yes PRN, Univer s ne 3-05 Starting ity of (DECADRON 16:12: [place] 08/11/19 [place] PHOSPHATE) 00 at 1012, Medic al injection Until Branch Discontinu ed, Routine, Intra-op ceFAZolin 2019-0 Yes PRN, Univers (ANCEF) 3- Starting ity of injection 16:12: [place] 08/11/19 [place] 00 at 1012, Medical Until Branch Discontinu ed, SHEREEN, Intra-op gentamicin 2020-0 Yes PRN, Univers injection 08-10 Starting ity of 16:11: [place] 08/11/19 [place] 00 at 1011, Medical Until Branch Discontinu ed, SHEREEN, Intra-op DUOVISC 2020-0 Yes PRN, Univers (DUOVISC 08-10 Starting ity of VISCO 16:10: Marian 08/11/19 [place] ELASTIC) 3 00 at 1010, Medic al %-4 %(0.5 Until Branch mL) 1 % Discontinu (0.55 mL) ed, intraocular Routine, injection Intra-op balanced 2019-0 Yes PRN, Univers salt irrig 3-05 Starting ity o f soln comb1 16:07: [place] 08/11/19 [place] (BSS PLUS) 00 at 1007, Medic al ophthalmic Until Branch solution Discontinu 500 mL bag ed, Routine, Intra-op EPINEPHrine 2020-0 Yes PRN, Univer s (PF) 3- Starting ity of 1:1,000 (1 16:02: [place] 08/11/19 [place] mg/mL) 00 at 1002, Medical (ADRENALIN Until Branch (PF)) Discontinu injection ed, Routine, Intra-op water for 2020-0 Yes PRN, Univers irrigation 3-05 Starting ity o f irrigation 15:59: [place] 08/11/19 [place] solution 00 at 0959, Medical Until Branch Discontinu ed, Routine, Intra-op tetracaine 2020-0 Yes PRN, Univers (PONTOCAINE -05 Starting ity of ) 0.5 % 15:58: [place] 08/11/19 [place] ophthalmic 00 at 0958, Medic al drops Until Branch Discontinu ed, Routine, Intra-op lidocaine-e 2020-0 Yes PRN, Univ s pinephrine 3-05 Starting ity o f (XYLOCAINE 15:55: [place] 08/11/19 [place] W/EPINEPHRI 00 at 0955, Medi mery NE) 2 Until Branch %-1:200,000 Discontinu injection ed, Routine, Intra-op bupivacaine 2020-0 Yes PRN, Univ s (preserv 305 Starting ity of free) 15:55: Marian 08/11/19 [place] (SENSORCAIN 00 at 0955, Medi mery E MPF) 0.75 Until Branch % (7.5 Discontinu mg/mL) ed, injection Routine, Intra-op lactated 2020-0 2020- No 1000mL at 20 [facility] rs ringers IV 08-10 03-05 mL/hr, ity of infusion 14:15: 14:18 1,000 mL, Ehsan as 1,000 mL 00 :00 IV Medical Infusion, [place] ONCE, 1 dose, [place] 08/11/19 at 0815, Routine, DSU Pre-op mydriatic 2020- No .5mL 0.5 mL, [facility] ers #5 08-10 03-05 Right Eye, ity of ophthalmic 14:15: 14:18 ONCE, 1 Ehsan [place] solution 00 :00 dose, Marian Medica l 0.5 mL 08/11/19 at Branch syringe 0815, Routine losartan 50 2019-0 Yes 50mg Take 50 mg Univers mg tablet 2-01 by mouth ity of 19:06: daily. [place] [address] Medical Branch aspirin 325 2019-0 Yes 325mg Take 325 U nivers mg tablet 2-01 mg by ity of 19:06: mouth [place] 16 daily. Medical Branch DOCOSAHEXAN 2019-0 Yes Take by Un fredrick OIC 2-01 mouth. ity of ACID/EPA 19:06: [place] (FISH OIL 16 Medical ORAL) Branch levoFLOXaci 2019-0 Yes 500mg Take 500 U nivers n 250 mg 2-01 mg by ity of tablet 19:06: mouth [place] 16 every 24 Medical (twenty-fo Branch ur) hours. vitamin C 2019-0 Yes 1000mg Take 1,000 Univers with kirti 2-01 mg by ity of hips 19:06: mouth [place] (VITAMIN C) 16 daily. Medica l 1,000 mg Branch tablet amLODIPine Yes 2.5mg Take 2.5 Un fredrick 2.5 mg 2-01 mg by ity of tablet 19:06: mouth [place] 16 daily. Medical Branch rosuvastati Yes 20mg Take 20 mg Univers n (CRESTOR) 2-01 by mouth ity of 20 mg 19:06: at [place] tablet 16 bedtime. Medical Branch losartan 50 Yes 50mg Take 50 mg Univers mg tablet 2-01 by mouth ity of 19:06: daily. 16 Medical Branch aspirin 325 2018- Yes 325mg Take 325 U nivers mg tablet 2-01 mg by ity of 19:06: mouth [place] 16 daily. Medical Branch DOCOSAHEXAN Yes Take by Un fredrick OIC 2-01 mouth. ity of ACID/EPA 19:06: [place] (FISH OIL 16 Medical ORAL) Branch levoFLOXaci Yes 500mg Take 500 U nivers n 250 mg 2-01 mg by ity of tablet 19:06: mouth [place] 16 every 24 Medical (twenty-fo Branch ur) hours. vitamin C Yes 1000mg Take 1,000 Univers with kirti 2-01 mg by ity of hips 19:06: mouth [place] (VITAMIN C) 16 daily. Medica l 1,000 mg Branch tablet amLODIPine Yes 2.5mg Take 2.5 Un fredrick 2.5 mg 2-01 mg by ity of tablet 19:06: mouth [place] 16 daily. Medical Branch rosuvastati Yes 20mg Take 20 mg Univers n (CRESTOR) 2-01 by mouth ity of 20 mg 19:06: at [place] tablet 16 bedtime. Medical Branch losartan 50 Yes 50mg Take 50 mg Univers mg tablet 2-01 by mouth ity of 19:06: daily. 16 Medical Branch aspirin 325 2019-0 Yes 325mg Take 325 U nivers mg tablet 2-01 mg by ity of 19:06: mouth [place] 16 daily. Medical Branch DOCOSAHEXAN Yes Take by Un fredrick OIC 2-01 mouth. ity of ACID/EPA 19:06: [place] (FISH OIL 16 Medical ORAL) Branch levoFLOXaci Yes 500mg Take 500 U nivers n 250 mg 2-01 mg by ity of tablet 19:06: mouth [place] 16 every 24 Medical (twenty-fo Branch ur) hours. vitamin C Yes 1000mg Take 1,000 Univers with kirti 2-01 mg by ity of hips 19:06: mouth [place] (VITAMIN C) 16 daily. Medica l 1,000 mg Branch tablet amLODIPine Yes 2.5mg Take 2.5 Un fredrick 2.5 mg 2-01 mg by ity of tablet 19:06: mouth [place] 16 daily. Medical Branch rosuvastati Yes 20mg Take 20 mg Univers n (CRESTOR) 2-01 by mouth ity of 20 mg 19:06: at [place] tablet 16 bedtime. [facility] losartan 50 2017-06 Yes 100 mg = 2 Memoria mg oral 0-18 tab, PO, l tablet 13:34: Daily, # Luke 05 180 tab, 2 Refill(s), Pharmacy: [facility] 482 Metamucil Yes 1.7 gm =, Mem oria 5-21 PO, l 12:56: Bedtime Luke 00 omeprazole Yes Univers (PRILOSEC) 1-27 ity of 20 mg 00:00: [place] capsule [facility] omeprazole Yes Univers (PRILOSEC) 1-27 ity of 20 mg 00:00: [place] capsule [facility] omeprazole Yes Univers (PRILOSEC) 1-27 ity of 20 mg 00:00: [place] capsule [facility] omeprazole Yes Univers (PRILOSEC) 1-27 ity of 20 mg 00:00: [place] capsule [facility] omeprazole Yes Univers (PRILOSEC) 1-27 ity of 20 mg 00:00: [place] capsule [facility] omeprazole Yes Univers (PRILOSEC) 1-27 ity of 20 mg 00:00: [place] capsule [facility] omeprazole Yes Univers (PRILOSEC) 1-27 ity of 20 mg 00:00: [place] capsule [facility] omeprazole Yes Univers (PRILOSEC) 1-27 ity of 20 mg 00:00: [place] capsule [facility] omeprazole Yes Univers (PRILOSEC) 1-27 ity of 20 mg 00:00: [place] capsule [facility] omeprazole 2016-0 Yes Univers (PRILOSEC) 1-27 ity of 20 mg 00:00: [place] capsule [facility] omeprazole 2016-0 Yes Univers (PRILOSEC) 1-27 ity of 20 mg 00:00: [place] capsule [facility] omeprazole 2016-0 Yes Univers (PRILOSEC) 1-27 ity of 20 mg 00:00: [place] capsule [facility] omeprazole 2016-0 Yes Univers (PRILOSEC) 1-27 ity of 20 mg 00:00: [place] capsule [facility] omeprazole 2016-0 Yes Univers (PRILOSEC) 1-27 ity of 20 mg 00:00: [place] capsule [facility] omeprazole 2016-0 Yes Univers (PRILOSEC) 1-27 ity of 20 mg 00:00: [place] capsule [facility] omeprazole 2016-0 Yes Univers (PRILOSEC) 1-27 ity of 20 mg 00:00: [place] capsule [facility] omeprazole 2016-0 Yes Univers (PRILOSEC) 1-27 ity of 20 mg 00:00: [place] capsule [facility] omeprazole 2016-0 Yes Univers (PRILOSEC) 1-27 ity of 20 mg 00:00: [place] capsule [facility] omeprazole 2016-0 Yes Univers (PRILOSEC) 1-27 ity of 20 mg 00:00: [place] capsule [facility] omeprazole 2016-0 Yes Univers (PRILOSEC) 1-27 ity of 20 mg 00:00: [place] capsule [facility] omeprazole 2016-0 Yes Univers (PRILOSEC) 1-27 ity of 20 mg 00:00: [place] capsule [facility] omeprazole 2016-0 Yes Univers (PRILOSEC) 1-27 ity of 20 mg 00:00: [place] capsule [facility] omeprazole 2016-0 Yes Univers (PRILOSEC) 1-27 ity of 20 mg 00:00: [place] capsule [facility] omeprazole 2016-0 Yes Univers (PRILOSEC) 1-27 ity of 20 mg 00:00: [place] capsule [facility] omeprazole 2016-0 Yes Univers (PRILOSEC) 1-27 ity of 20 mg 00:00: [place] capsule [facility] omeprazole 2016-0 Yes Univers (PRILOSEC) 1-27 ity of 20 mg 00:00: [place] capsule 00 [facility] omeprazole Yes Univers (PRILOSEC) 1-27 ity of 20 mg 00:00: [place] capsule [facility] omeprazole Yes Univers (PRILOSEC) 1-27 ity of 20 mg 00:00: [place] capsule [facility] omeprazole Yes Univers (PRILOSEC) 1-27 ity of 20 mg 00:00: [place] capsule [facility] [place] omeprazole Yes Univers (PRILOSEC) 1-27 ity of 20 mg 00:00: [place] capsule [facility] [place] omeprazole Yes Univers (PRILOSEC) 1-27 ity of 20 mg 00:00: [place] capsule [facility] omeprazole Yes Univers (PRILOSEC) 1-27 ity of 20 mg 00:00: [place] capsule [facility] omeprazole Yes Univers (PRILOSEC) 1-27 ity of 20 mg 00:00: [place] capsule [facility] omeprazole Yes Univers (PRILOSEC) 1-27 ity of 20 mg 00:00: [place] capsule [facility] Sodium No 1,000 mL, Memori a Chloride 10-09 Rate: 25 l 0.154 15:06: ml/hr, Luke MEQ/ML 00 Infuse Injectable over: 40 Solution hr, Route: IV, Dosing Weight 75 kg, Total Volume: 1,000, Start date: 10/09/14 10:06:00, Duration: 30 day, Stop date: 11/08/14 10:05:00 Tylenol Yes PO, 0 Memoria 5 Refill(s) l 19:58: [place] 00 alprazolam alprazolam No alprazolam [place] 0.25 mg 0.25 mg 0.25 mg da tablet tablet tablet [facility] amlodipine amlodipine No amlodipine [place] 2.5 mg 2.5 mg 2.5 mg da tablet tablet tablet [facility] fluticasone fluticasone No fluticason [place] propionate propionate e da 50 50 propionate Medical mcg/actuati mcg/actuati 50 G roup on nasal on nasal mcg/actuat spray,suspe spray,suspe ion nasal nsion [facility] nsion [facility] spray,susp 1 spray 1 spray ension twice a day twice a day [facility] 1 by by spray intranasal intranasal twice [...] mg da tablet tablet tablet [facility] Immunizations Ordered Immunization Filled Immunization Date Status Commen ts Source Name Name Hx influenza 2012-03-01 Completed [facility] vaccine-unspecified< 12:06:40 Herm johnnie sup>1</sup> Vital Signs Vital Name Observation Time Observation Value Comments Source Systolic blood 2020-06-15 14:02:00 147 mm[Hg[facility] 2020-06-15 14:02:00 74 mm[Hg] Unive rsity of pressure [facility] Heart rate 2020-06-15 14:02:00 68 /min [facility] Body height 2020-06-15 13:59:00 172.7 cm [facility] Body weight 2020-06-15 13:59:00 74.844 kg [facility] BMI 2020-06-15 13:59:00 25.09 kg/m2 [facility] Systolic blood 2020-06-15 14:02:00 147 mm[Hg] Univer sity [facility] Diastolic blood 2020-06-15 14:02:00 74 mm[Hg] Unive rsity of [facility] Heart rate 2020-06-15 14:02:00 68 /min [facility] [place] [facility] Body height 2020-06-15 13:59:00 172.7 cm [facility] [place] [facility] Body weight 2020-06-15 13:59:00 74.844 kg [facility] [place] [facility] BMI 2020-06-15 13:59:00 25.09 kg/m2 Universi ty of [facility] Systolic blood 2020-02-27 18:51:00 134 mm[Hg] Univer sity of pressure [place] [facility] Diastolic blood 2020-02-27 18:51:00 76 mm[Hg] Unive rsity of pressure [facility] Respiratory rate 2020-02-27 18:51:00 18 /min Univ ersity of [facility] Body weight 2020-02-27 18:51:00 74.844 kg [facility] [place] [facility] BMI 2020-02-27 18:51:00 25.09 kg/m2 Universi ty of [facility] Systolic blood 2020-02-17 13:27:00 146 mm[Hg] Univer sity of [facility] Diastolic blood 2020-02-17 13:27:00 78 mm[Hg] Unive rsity of pressure [facility] Heart rate 2020-02-17 13:25:00 69 /min [facility] [place] [facility] Body weight 2020-02-17 13:25:00 74.844 kg [facility] [place] [facility] BMI 2020-02-17 13:25:00 25.09 kg/m2 [facility] [place] [facility] Systolic blood 2020-01-26 19:28:00 157 mm[Hg] Univer sity of [facility] Diastolic blood 2020-01-26 19:28:00 53 mm[Hg] Unive rsity of pressure [facility] Heart rate 2020-01-26 19:28:00 66 /min [facility] [place] [facility] Body height 2020-01-26 19:28:00 172.7 cm [facility] [place] [facility] Body weight 2020-01-26 19:28:00 74.844 kg [facility] [place] [facility] BMI 2020-01-26 19:28:00 25.09 kg/m2 [facility] [place] [facility] Systolic blood 2019-12-07 18:14:00 144 mm[Hg] Univer sity of [facility] Diastolic blood 2019-12-07 18:14:00 71 mm[Hg] Unive rsity of [facility] Heart rate 2019-12-07 18:14:00 71 /min [facility] [place] [facility] Body height 2019-12-07 18:14:00 172.7 cm [facility] [place] [facility] Body weight 2019-12-07 18:14:00 74.844 kg [facility] [place] [facility] BMI 2019-12-07 18:14:00 25.09 kg/m2 Universi ty of [facility] Systolic blood 2019-09-29 14:07:00 167 mm[Hg] Univer sity of [facility] [place] [facility] Diastolic blood 2019-09-29 14:07:00 73 mm[Hg] Unive rsity of pressure [facility] Heart rate 2019-09-29 14:07:00 54 /min Universi ty of [facility] Respiratory rate 2019-09-29 14:07:00 16 /min Univ ersity of [facility] Oxygen saturation in 2019-09-29 14:07:00 96 /min University of Arterial blood by [facility] Pulse oximetry Branch Body temperature 2019-09-29 14:00:00 36.44 Liv Univ ersity of [facility] Body height 2019-09-26 23:44:00 172.7 cm [facility] [place] [facility] Body weight 2019-09-26 23:44:00 74.8 kg [facility] [place] [facility] BMI 2019-09-26 23:44:00 25.08 kg/m2 Universi ty of [facility] Body temperature 2019-09-28 15:44:00 36.72 Liv Univ ersity of [facility] Systolic blood 2019-08-11 16:33:00 147 mm[Hg] Univer sity of pressure [facility] Diastolic blood 2019-08-11 16:33:00 71 mm[Hg] Unive rsity of pressure [facility] Heart rate 2019-08-11 16:33:00 61 /min Universi ty of [facility] Body temperature 2019-08-11 16:33:00 36.67 Liv Univ ersity of [facility] Respiratory rate 2019-08-11 16:33:00 18 /min Univ ersity of [facility] Oxygen saturation in 2019-08-11 16:33:00 96 /min [facility] Arterial blood by [facility] Pulse oximetry Branch Body height 2019-08-09 20:37:00 172.7 cm [facility] Body weight 2019-08-09 20:37:00 74.8 kg [facility] BMI 2019-08-09 20:37:00 25.08 kg/m2 [facility] BP Diastolic 2019-03-25 00:00:00 81 mm[Hg] [facility] Height 2019-03-25 00:00:00 68 [in_i] [facility] BMI (Body Mass 2019-03-25 00:00:00 26.2 kg/m2 [facility] BP Systolic 2019-03-25 00:00:00 161 mm[Hg] [facility] Body Weight 2019-03-25 00:00:00 172 [lb_av] [facility] BP Diastolic 2019-03-07 00:00:00 77 mm[Hg] [facility] Height 2019-03-07 00:00:00 68 [in_i] [facility] BMI (Body Mass 2019-03-07 00:00:00 26.2 kg/m2 [facility] BP Systolic 2019-03-07 00:00:00 151 mm[Hg] [facility] Body Weight 2019-03-07 00:00:00 172.2 [lb_av] [facility] BP Diastolic 2019-02-10 00:00:00 75 mm[Hg] [facility] Height 2019-02-10 00:00:00 68 [in_i] [facility] BMI (Body Mass 2019-02-10 00:00:00 26.3 kg/m2 [facility] BP Systolic 2019-02-10 00:00:00 160 mm[Hg] [facility] Body Weight 2019-02-10 00:00:00 173 [lb_av] [facility] Systolic (mm Hg) 2020-08-17 15:45:00 Ashkan rachel Bakerann Diastolic (mm Hg) 2020-08-17 15:45:00 Mem orial [facility] Heart Rate 2020-08-17 15:45:00 [facility] Respitory Rate 2020-08-17 15:45:00 Memori al [facility] Height 2020-08-17 15:45:00 165.1 cm [facility] [place] Weight 2020-08-17 15:45:00 [facility] BMI Calculated 2020-08-17 15:45:00 Memori al [facility] Systolic (mm Hg) 2020-05-25 15:52:00 Ashkan rial Luke Diastolic (mm Hg) 2020-05-25 15:52:00 Mem orial [place] Heart Rate 2020-05-25 15:52:00 [facility] Respitory Rate 2020-05-25 15:52:00 Memori al Luke Height 2020-05-25 15:52:00 167.64 cm [facility] Weight 2020-05-25 15:52:00 [facility] BMI Calculated 2020-05-25 15:52:00 Memori [facility] [place] Systolic (mm Hg) 2020-04-13 14:21:00 Ashkan rial Luke Diastolic (mm Hg) 2020-04-13 14:21:00 Mem orial Luke Heart Rate 2020-04-13 14:21:00 [facility] [place] Respitory Rate 2020-04-13 14:21:00 Memori al Luke Height 2020-04-13 14:21:00 167.64 cm [facility] Weight 2020-04-13 14:21:00 [facility] [place] BMI Calculated 2020-04-13 14:21:00 Memori [facility] [place] Systolic (mm Hg) 2020-03-30 21:02:00 Ashkan rial [place] Diastolic (mm Hg) 2020-03-30 21:02:00 Mem orial [place] Heart Rate 2020-03-30 21:02:00 [facility] Respitory Rate 2020-03-30 21:02:00 Memori al [place] Height 2020-03-30 21:02:00 165.1 cm [facility] [place] Weight 2020-03-30 21:02:00 [facility] [place] BMI Calculated 2020-03-30 21:02:00 Memori al [place] Diastolic (mm Hg) 2020-03-14 20:06:00 Mem orial Luke Heart Rate 2020-03-14 20:06:00 [facility] Respitory Rate 2020-03-14 20:06:00 Memori al [facility] Height 2020-03-14 20:06:00 165.1 cm [facility] [place] Weight 2020-03-14 20:06:00 [facility] BMI Calculated 2020-03-14 20:06:00 Memori al [place] Systolic (mm Hg) 2020-03-14 20:06:00 Ashkan rial [place] BMI Calculated 2018-03-25 12:56:00 Memori al [facility] Weight 2018-03-25 12:56:00 [facility] Height 2018-03-25 12:56:00 172.72 cm [facility] Temperature Oral (F) 2018-03-25 12:56:00 97.5 F [facility] [place] Systolic (mm Hg) 2018-03-25 12:56:00 Ashkan rial [place] Diastolic (mm Hg) 2018-03-25 12:56:00 Mem orial [place] Heart Rate 2018-03-25 12:56:00 [facility] Height 2017-10-26 12:52:00 172.72 cm [facility] [place] BMI Calculated 2017-10-26 12:52:00 Memori al [place] Weight 2017-10-26 12:52:00 [facility] [place] Heart Rate 2017-10-26 12:52:00 [facility] Temperature Oral (F) 2017-10-26 12:52:00 97.3 F [facility] [place] Systolic (mm Hg) 2017-10-26 12:52:00 Ashkan rial Luke Diastolic (mm Hg) 2017-10-26 12:52:00 Mem orial Luke BMI Calculated 2017-05-04 14:03:00 Mem[facility] [place] Weight 2017-05-04 14:03:00 [facility] Height 2017-05-04 14:03:00 152.4 cm [facility] Heart Rate 2017-05-04 14:03:00 [facility] Temperature Oral (F) 2017-05-04 14:03:00 97.6 F [facility] [place] Systolic (mm Hg) 2017-05-04 14:03:00 Ashkan rial [place] Diastolic (mm Hg) 2017-05-04 14:03:00 Mem orial [facility] Systolic (mm Hg) 2014-10-09 18:00:00 Ashkan rial [place] Respitory Rate 2014-10-09 18:00:00 Memori al [place] Diastolic (mm Hg) 2014-10-09 18:00:00 Mem orial Luke Respitory Rate 2014-10-09 17:40:00 Chichi castillo [facility] Systolic (mm Hg) 2014-10-09 17:40:00 Ashkanarsen ramos Luke Diastolic (mm Hg) 2014-10-09 17:40:00 Mem orial [place] Systolic (mm Hg) 2014-10-09 17:27:00 Ashkan rial [place] Diastolic (mm Hg) 2014-10-09 17:27:00 Mem orial [facility] Respitory Rate 2014-10-09 17:27:00 Chichi Dawkinsann BMI Calculated 2014-10-06 19:50:00 Chichi Garner Weight 2014-10-06 19:50:00 [facility] Height 2014-10-06 19:50:00 172.72 cm [facility] Procedures Procedure Date / Time Performing Clinician Source Performed REFERRAL- REQUEST/RESPONSE 2021-07-05 06:01:00 Doctor Niall [facility] [place] [facility] REFERRAL- REQUEST/RESPONSE 2021-06-19 06:01:00 Doctor Niall [facility] [place] [facility] XR SPINE THORACIC 2 2020-02-17 13:53:16 Romi Reese [facility] [place] XR LUMBAR SPINE 2 2020-02-17 13:53:14 Romi Reese [facility] [place] NON [facility] 2020-02-08 05:01:00 Doctor Tierney [facility] DOCUMENTATION [place] [facility] EKG-12 LEAD 2020-01-30 14:27:17 Doctor Niall [facility] Name Medical Branch XR CHEST 2 2020-01-30 14:13:12 Sergio Miller [facility] CONSENT/REFUSAL FOR 2020-01-30 13:46:55 Doctor Tierney [facility] DIAGNOSIS AND TREATMENT [place] [facility] DSU PRE-OP 2020-01-26 05:01:00 Doctor Niall [facility] [place] [facility] REFERRAL- REQUEST/RESPONSE 2020-01-13 05:01:00 Doctor Niall [facility] [place] [facility] REFERRAL- REQUEST/RESPONSE 2019-12-07 05:01:00 Doctor Niall [facility] [place] [facility] ASSIGNMENT OF BENEFITS 2019-09-28 16:00:18 [facility] [place] [facility] DAY SURGERY - ADC 2019-08-11 06:01:00 Doctor Unassigned, [facility] [place] [facility] NO SHOW OR MISSED 2019-08-04 22:08:18 Doctor Unassigned, [facility] APPOINTMENT POLICY [place] [facility] ACKNOWLEDGEMENT [facility] PATIENT FINANCIAL 2019-08-04 22:07:51 Doctor Unassigned, Un [facility] POLICY [place] [facility] NOTICE OF BILLING 2019-08-04 22:07:18 Doctor Unassigned, [facility] PRACTICES FOR MEDICARE [place] [facility] PATIENTS NOTICE OF PRIVACY 2019-08-04 22:06:43 Doctor Unassigned, [facility] PRACTICES [place] [facility] CONSENT/REFUSAL FOR 2019-08-04 22:06:13 Doctor Unanette, [facility] DIAGNOSIS AND TREATMENT [place] [facility] ASSIGNMENT OF BENEFITS 2019-08-04 22:05:49 Doctor Unassigned, Un [facility] [place] [facility] CONSENT/REFUSAL FOR 2019-08-04 22:05:23 Doctor Niall, [facility] DIAGNOSIS AND TREATMENT [place] [facility] ASSIGNMENT OF BENEFITS 2019-08-04 22:04:21 Doctor Unassigned, Un [facility] [place] [facility] PHYSICIAN ORDERS 2019-08-04 06:01:00 Doctor Niall, [facility] [place] [facility] REFERRAL- REQUEST/RESPONSE 2019-06-14 06:01:00 Doctor Niall [facility] [place] [facility] REFERRAL- REQUEST/RESPONSE 2019-06-06 06:01:00 Doctor Niall [facility] [place] [facility] TYMPANOMETRY 2019-03-25 00:00:00 [facility] TYMPANOMETRY 2019-03-07 00:00:00 [facility] TYMPANOMETRY 2019-02-10 00:00:00 [facility] unlisted imaging order 2019-02-10 00:00:00 [facility] Microwave therapy to 2016-05-22 06:00:00 Juan Miguel Butler 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 Laparoscopic repair of [facility] [place] inguinal hernia Operation [facility] Rotator cuff repair [facility] Appendectomy [facility] [facility] Plan of Care Planned Activity Planned Date Details Comments Source Instructions Flaquita castillo Group Encounters Start End Encounter Admission Attending Care Care Encounter Source Date/Time Date/Time Type Type Clinicians Facility Department ID 2021-07-17 Outpatient IRINA JOAQUIN [facility] [id number] 16:19:00 [facility] 2021-07-03 Outpatient [facility] [id number] 14[facility]29:41 [id number] [facility] 2021-04-04 [facility] [id number] Univers 18:28:55 [facility] 2021-04-04 [facility] [id number] Univers 10:38:53 [facility] 2021-07-17 2021-07-17 ambulatory [facility] [id number] [facility] 2021-07-12 2021-07-12 Letter Ronnie PECK [id number] Univers 00:00:00 00:00:00 (Out) DARSHANA reynolds [id number] it y of [facility] [id number] Ehsan as [phone] [facility] 043 Branch 2021-07-05 2021-07-05 Orders Doctor PECK [id number] Univers 00:00:00 00:00:00 Only Unassigned, DARSHANA [id number] ity of [place] [facility] 4.2.7.2.686 Ehsan as [phone] [facility] 009 Branch 2021-06-19 2021-06-19 Orders Doctor CISCO Correa.2.840.114 [id number] Univers 00:00:00 00:00:00 Only Unassigned, DARSHANA [id number] ity of [place] [facility] [id number] Ehsan as [phone] [facility] 009 Branch 2020-12-19 2020-12-19 Ambulatory nullFlavo MNA [id number] Memoria 14:30:00 14:30:00 Pre-Reg r Neurology 25 l Alia Butler 2020-08-17 2020-08-18 Outpatient nullFlavo MNA [id number] Memoria 16:00:00 05:59:59 r Neurology 24 l Alia Butler 2020-06-15 2020-06-15 [facility] [id number] Univers 07:45:06 08:00:06 Visit [facility] [id number] it y of Surgical [id number] Ehsan as Specialti [phone] Me dical es 198 [facility] 2020-06-15 2020-06-15 Office [facility] [id number] 07:45:06 08:00:06 Visit [facility] [id number] Surgical [id number] Specialti [phone] es [address] [place] [address] 2020-06-15 2020-06-15 [facility] [id number] Univers 08:00:00 08:00:00 ROMI [id number] [facility] 2020-06-15 2020-06-15 Outpatient Lul [facility] [id number] Univers 08:00:00 08:00:00 ROMI [facility] 2020-05-25 2020-05-26 Outpatient nullFlavo MNA [id number] Memoria 15:45:00 05:59:59 r Neurology 23 l Alia Bakerann 2020-05-11 2020-05-11 Outpatient Raju_P MMG [id number] [id number] [place] 02:46:00 02:46:00 1204 [facility] 2020-04-25 2020-04-25 Outpatient Raju_P MMG [id number] [id number] [place] 02:21:00 02:21:00 1118 [facility] 2020-04-13 2020-04-14 Outpatient nullFlavo MNA [id number] Memoria 14:15:00 05:59:59 r Neurology 22 l Alia Butler 2020-04-12 2020-04-12 Ambulatory nullFlavo MNA [id number] Mem[facility] 19:45:00 19:45:00 Pre-Reg r Neurology 19 l Alia Butler 2020-04-03 2020-04-03 Ambulatory nullFlavo MNA [id number] Mem[facility] 16:45:00 16:45:00 Pre-Reg r Neurology 20 l Alia Butler 2020-03-30 2020-03-31 Outpatient nullFlavo MNA [id number] [facility] 21:00:00 04:59:59 r Neurology 21 l Alia Butler 2020-03-14 2020-03-15 Outpatient nullFlavo MNA [id number] Memoria 20:15:00 04:59:59 r Neurology 18 l Alia Butler 2020-02-27 2020-02-27 [facility] [id number] Univers 14:15:00 14:15:00 SERGIO [id number] [facility] 2020-02-27 2020-02-27 [facility] [id number] Univers 14:15:00 14:15:00 [facility] 2020-02-27 2020-02-27 [facility] [id number] Univers 13:37:12 14:06:43 Visit Sergio [facility] [id number] it y of Surgical [id number] Ehsan as Specialti [id number] [place] [address] 2020-02-22 2020-02-22 [facility] [id number] Univers 13:15:00 13:15:00 SERGIO [id number] [facility] 2020-02-22 2020-02-22 Outpatient [facility] [id number] Univers 13:15:00 13:15:00 [facility] 2020-02-17 2020-02-17 Hospital [facility] 1.2.840.114 [id number] Univers 08:53:15 23:59:00 Encounter Romi [facility] [id number] ity of Surgical [id number] Ehsan as Specialti [phone] [place] 809 [facility] 2020-02-17 2020-02-17 [facility] 1.2.840.114 [id number] Univers 08:53:14 23:59:00 Encounter Romi [facility] [id number] ity of Surgical [id number] Ehsan as Specialti [phone] [place] 809 [facility] 2020-02-17 2020-02-17 Outpatient R [facility] [id number] Univers 08:30:00 08:30:00 ROMI [id number] ity of [facility] 2020-02-17 2020-02-17 Outpatient R [facility] [id number] Univers 08:30:00 08:30:00 [facility] 2020-02-17 2020-02-17 Office [facility] 1.2.840.114 [id number] Univers 08:11:49 08:26:49 Visit [facility] [id number] it y of Surgical [id number] Ehsan as Specialti [id number] [place] 198 [facility] 2020-02-08 2020-02-08 [facility] 1.2.840.114 [id number] Univers 13:27:00 23:59:00 Encounter Sergio Mcgovern [id number] ity of [place] [id number] [facility] 075 [place] 2020-02-08 2020-02-08 [facility] [id number] Univers 00:00:00 00:00:00 [facility] 2020-02-08 2020-02-08 Orders Doctor PECK 1.2.840.114 [id number] Univers 00:00:00 00:00:00 Only Unassigned, DARSHANA 350.1.13.10 ity of [place] [facility] 4.2.7.2.686 Ehsan as [phone] [facility] [address] [place] 2020-01-30 2020-01-30 [facility] 1.2.840.114 [id number] Univers 08:46:58 23:59:00 Encounter Sergio Castaneda 350.1.13.10 it[place] of [place] [phone] [facility] [address] 2020-01-30 2020-01-30 Photoresist Contact Printer Aleksandr, [place] [facility] Main [facility] 1.2.8 40.114 [id number] Univers 08:41:22 09:51:56 Visit Sergio Miller 350.1.13.10 ity of [place] [facility] [phone] [place] 353 [facility] 2020-01-30 2020-01-30 Outpatient R [facility] [id number] Univers 08:45:00 08:45:00 [id number] ity [facility] 2020-01-30 2020-01-30 [facility] [id number] Univers 08:45:00 08:45:00 [facility] 2020-01-26 2020-01-26 [facility] [id number] Univers 14:09:34 15:50:04 Visit Sergio [facility] 350.1.13.10 it y of Surgical 4.2.7.2.686 Ehsan as Specialti [phone] [place] dical es 198 [facility] 2020-01-26 2020-01-26 [facility] [id number] Univers 14:30:00 14:30:00 SERGIO ity [facility] 2020-01-26 2020-01-26 [facility] [id number] Univers 14:30:00 14:30:00 [facility] 2020-01-26 2020-01-26 Orders Doctor CISCO 1.2.840.114 [id number] Univers 00:00:00 00:00:00 Only Unassigned, DARSHANA 350.1.13.10 ity of [place] [facility] 4.2.7.2.686 Ehsan as [phone] [facility] [address] 2020-01-13 2020-01-14 Outpatient nullFlavo MNA [id number] Memoria 13:15:00 04:59:59 r Neurology 17 l [place] 2020-01-13 2020-01-13 Orders Doctor CISCO 1.2.840.114 [id number] Univers 00:00:00 00:00:00 Only Unassigned, DARSHANA 350.1.13.10 ity of [place] [facility] 4.2.7.2.686 Ehsan as [phone] [facility] [address] 2019-12-07 2019-12-07 Office Paul [facility] [id number] Univers 12:56:08 13:30:44 Visit Sergio [facility] 350.1.13.10 it y of Surgical 4.2.7.2.686 Ehsan as Specialti [phone] Me dical es 198 [facility] 2019-12-07 2019-12-07 Outpatient R PAUL [facility] [id number] Univers 13:15:00 13:15:00 SERGIO [id number] ity [facility] 2019-12-07 2019-12-07 Outpatient R PAUL [facility] [id number] Univers 13:15:00 13:15:00 [place] ity [facility] 2019-12-07 2019-12-07 Orders Doctor CISCO 1.2.840.114 [id number] Univers 00:00:00 00:00:00 Only Unassigned, DARSHANA 350.1.13.10 ity of [place] [facility] 4.2.7.2.686 Ehsan as [phone] [facility] [address] 2019-09-29 2019-09-29 [facility] 1.2.840.114 [id number] Univers 06:25:00 09:15:00 Encounter Roberto Carlos Castaneda 350.1.13.10 ity of [place] [id number] [facility] [address] 2019-09-28 2019-09-28 Photoresist Contact Printer Aleksandr, [place] [facility] Main [facility] 1.2.8 40.114 [id number] Univers 11:04:24 11:19:24 Visit Roberto Carlos Hernandez 350.1.1 3.10 ity of [place].2.[place] [phone] [place] dical nal 353 [facility] 2019-09-28 2019-09-28 Outpatient R [facility] [id number] Univers 10:45:00 10:45:00 [id number] ity of [facility] 2019-09-28 2019-09-28 Outpatient R [facility] [id number] Univers 10:45:00 10:45:00 ity of [facility] 2019-09-28 2019-09-28 Nurse Nurse, [facility] 1.2.840.114 [id number] Univers 09:49:02 10:22:27 Visit Roberto Carlos Hernandez 350.1.1 3.10 [place] of [place] [phone] [facility] 377 [facility] 2019-09-28 2019-09-28 Orders Doctor CISCO 1.2.840.114 [id number] Univers 00:00:00 00:00:00 Only Unassigned, DARSHANA 350.1.13.10 ity of [place] [facility] 4.2.7.2.686 Ehsan as [phone] [address] 2019-09-28 2019-09-28 Telephone [facility] [id number] Univers 00:00:00 00:00:00 Roberto Carlos Castaneda 350.1.13.10 i ty of [place] [phone] [facility] 377 [facility] 2019-08-11 2019-08-11 Hospital [facility] 1.2.840.114 [id number] Univers 08:04:00 10:52:00 Encounter Roberto Carlos Castaneda 350.1.13.10 ity of [place] [phone] [facility] [address] 2019-08-11 2019-08-11 Orders Doctor CISCO 1.2.840.114 [id number] Univers 00:00:00 00:00:00 Only Unassigned, DARSHANA 350.1.13.10 ity of [place] [facility] 4.2.7.2.686 Ehsan as [phone] [address] 2019-08-04 2019-08-04 Photoresist Contact Printer Aleksandr, [place] [facility] Main [facility] 1.2.8 40.114 [id number] Univers 16:12:43 16:27:43 Visit Roberto Carlos Hernandez 350.1.1 3.10 ity [facility] 4.2.7.2.[place] [phone] [place] dical [address] 2019-08-04 2019-08-04 Outpatient R [facility] [id number] Univers 11:15:00 11:15:00 [id number] ity [facility] 2019-08-04 2019-08-04 Outpatient R MARY, [facility] [id number] Univers 11:15:00 11:15:00 ROBERTO CARLOS white [facility] 2019-06-14 2019-06-14 Orders Doctor CISCO 1.2.840.114 [id number] Univers 00:00:00 00:00:00 Only Unassigned, DARSHANA 350.1.13.10 ity of [place] [facility] 4.2.7.2.686 Ehsan as [phone] [address] 2019-06-06 2019-06-06 Orders Doctor CISCO 1.2.840.114 [id number] Univers 00:00:00 00:00:00 Only Unassigned, DARSHANA 350.1.13.10 ity of [place] [facility] 4.2.7.2.686 Ehsan as [phone] [address] 2019-03-25 2019-03-25 Paldavida ROSARIO [place] - [id number] [place] 00:00:00 00:00:00 MD Chiara: [address] [address] , Ph. 2019-03-07 2019-03-07 Yoko BLANCHARD [place] - [id number] [place] 00:00:00 00:00:00 MD Chiara: [address] - [facility] 201, [facility] [address] , Ph. 2019-02-10 2019-02-10 Yoko ROSARIOG [place] - [id number] [facility] 00:00:00 MD Chiara: [address] Group [place], [place] - [address], [place], [place] [address] , Ph. 2018-09-23 2018-09-23 Ambulatory nullFlavo [facility] [id number] Memoria 14:30:00 14:30:00 Pre-Reg r Cardiology 15 dara ShethGina Luke 2018-03-25 2018-03-26 Outpatient nullFlavo [facility] [id number] Memoria 13:30:00 04:59:59 r Cardiology 16 dara Chackoon uLke 2017-10-26 2017-10-27 Outpatient nullFlavo [facility] [id number] Memoria 13:30:00 04:59:59 r Cardiology 14 dara Butler 2017-05-04 2017-05-05 Outpatient nullFlavo [facility] [id number] Memoria 14:30:00 05:59:59 r Cardiology 06 dara Gina Luke 2016-11-20 2016-11-20 Outpatient MHIE [facility] [id number] Memoria 10:00:00 10:00:00 05 dara Butler 2016-11-07 2016-11-07 Outpatient MHIE MH[facility] [id number] Memoria 15:30:00 15:30:00 11 dara Butler 2016-11-07 2016-11-07 Outpatient MHIE MHIE [id number] Memoria 14:45:00 14:45:00 12 dara Butler 2016-11-07 2016-11-07 Outpatient MHIE MHIE [id number] Memoria 14:45:00 14:45:00 13 dara Butler 2016-10-27 2016-10-27 Outpatient MHIE MHIE [id number] Memoria 13:30:00 13:30:00 10 dara Butler 2016-10-27 2016-10-27 Outpatient MHIE [facility] [id number] Memoria 10:00:00 10:00:00 08 dara Butler 2016-10-27 2016-10-27 Outpatient MHIE MHIE [id number] Memoria 09:00:00 09:00:00 09 dara Butler 2016-10-21 2016-10-21 Outpatient IE IE [id number] Memoria 10:45:00 10:45:00 07 dara Luke 2016-06-30 2016-06-30 Outpatient MHIE IE [id number] Memoria 07:00:00 07:00:00 04 dara Luke 2015-11-29 2015-11-29 Outpatient IE IE [id number] Memoria 07:30:00 07:30:00 03 dara Butler 2015-11-07 2015-11-07 Outpatient IE IE [id number] Memoria 08:00:00 08:00:00 02 dara Butler 2015-05-21 2015-05-21 Outpatient IE IE [id number] Memoria 08:30:00 08:30:00 00 dara Butler 2015-05-21 2015-05-21 Outpatient MHIE IE [id number] Memoria 08:00:00 08:00:00 01 dara Butler 2014-10-09 2014-10-09 Bedded [facility] [id number] Memoria 14:53:00 18:00:00 Outpatient r Luke 03 [facility] 2014-10-04 2014-10-05 Outpatient [facility] [id number] Memoria 15:02:00 04:59:00 r Luke 02 [facility] Results Test Description Test Time Test Comments Results Result Sourc e Comments XR SPINE THORACIC 2020-02-07 [place] wires from [place] [address] VW 1 previous [facility] ed[facility] 14:17:57 spine surgery over [place] most of the thoracic spine there are some signs of degeneration. XR LUMBAR SPINE 2 2020-02-07 There are Univers ity of [place] 1 degenerative [place] [facility] 14:17:16 changes at L5-S1 [place] with signs of lumbar straightening XR CHEST 2 VW 2020-01-08 EXAM: XR CHEST 2 Unive rsity of 4 VW HISTORY: Right [facility] ed[facility] 14:18:00 carpal tunnel [place] syndrome COMPARISON: None. FINDINGS: A small amount of pleural fluid separates the visceral from parietal pleuraon the left laterally and inferiorly. Adhesions between the cardiac apexand the chest wall elevate the heart and give the impression of air beneathit. The heart and great vessels are normal and the lungs are otherwisewell-expa nded and clear. ? [facility], Radiant Results Inft User - 01/30/2020 9:19 AM CDTEXAM: XR CHEST 2 VWHISTORY: Right carpal tunnel syndrome COMPARISON: None.FINDINGS:A small amount of pleural fluid separates the visceral from parietal pleuraon the left laterally and inferiorly. Adhesions between the cardiac apexand the chest wall elevate the heart and give the impression of air beneathit. The heart and great vessels are normal and the lungs are otherwisewell-expa nded and clear. tympanogram 2019-03-07 14:40:58 Test Item Value Reference Range Interpretation Comme nts Right (test code = Right) Type C Peak is on Left Left (test code = Left) Type C Peak is on Left [facility]2019-09-30 14:40:58 Test Item Value Reference Range Interpretation Comments Right (test code = Type C Peak is on Left Right) Left (test code = Left) Type C Peak is on Left [facility]2019-09-05 09:31:46 Test Item Value Reference Range Interpretation Comments Right (test code = Type A Normal Right) Left (test code = Type C Peak is on Left Left) [id number] 09:31:46 Test Item Value Reference Range Interpretation Comments Right (test code = Type A Normal Right) Left (test code = Type C Peak is on Left Left) [facility]
[2021-07-19] MEDS ORDERED: ONDANSETRON 4 MG/2 ML VIAL ONE (08:35)
[2021-07-19] MEDS ORDERED: FAMOTIDINE 20 MG/2 ML VIAL IV ONE (08:35)
[2021-07-19] MEDS ORDERED: FENTANYL CITR 100 MCG/2 ML ONE (08:35)
[2021-07-19 08:44] LABS: Absolute Lymphocytes (CBC) 1.4 K/uL (0.7-4.9); Hematocrit 42.5 % (39.6-49.0); Lymphocytes % 9.8 % (15.3-44.8); MPV 8.2 fL (7.6-11.3); RBC Red Blood Cell Count 4.61 M/uL (4.33-5.43)
[2021-07-19 08:53] LABS: Protime INR 1.08
[2021-07-19 09:06] LABS: Albumin 3.6 g/dL (3.4-5.0); Bilirubin Direct 0.1 mg/dL (0-0.2); Bilirubin Total 0.5 mg/dL (0.2-1.0); Protein, Total 7.2 g/dL (6.4-8.2); Troponin High Sensitivity 7.6 pg/mL (<58.9)
--- NOTE | 2021-07-19 09:13 | RAD REPORT ---
EXAM DESCRIPTION: CT - Abdomen Pelvis Wo Contrast - 07/19/2021 8:43 am CLINICAL HISTORY: Abdominal pain. ABD PAIN COMPARISON: No comparisons TECHNIQUE: CT imaging of the abdomen and pelvis was performed without contrast. Solid organ, bowel a nd vascular assessment is limited due to lack of IV and oral contrast. All CT scans are performed using dose optimization technique as appropriate and may include automated exposure control or mA/KV adjustment according to patient size. FINDINGS: The lower lung lilly are clear. The liver, spleen, pancreas, adrenal glands left kidney are within normal limits for a limited non-co ntrast examination. 7 mm stone is present distal right ureter resulting in svsz-fo-ovuknvzu right-sided hydronephrosis an d hydroureter. No bowel obstruction, free air, free fluid or abscess. Sigmoid diverticulosis without diverticulitis. The appendix is not identified as a discrete structure, however, no secondary findings of appendicit is are identified. Clips are seen in the left inguinal region. The osseous structures are within normal limits. IMPRESSION: 7 mm stone is present distal right ureter with mild to moderate right hydronephrosis and hydroureter. A limited non-contrast examination was performed as detailed.
[2021-07-19 09:36] LABS: Urine Blood Trace-lysed (Negative); Urine Glucose Negative (Negative); Urine Protein Trace (Negative); Urine Specific Gravity >=1.030 (1.005-1.030)
--- NOTE | 2021-07-19 09:38 | EDPHYS ---
Physician Documentation [facility] Name: Ayaz Brunson Jr Age: 81 yrs Sex: Male : 1940 Arrival Date: 07/19/2021 Time: 08:01 Bed 6 Private MD: ED Physician Angel Molina HPI: 07/19 09:31 This 81 yrs old Male presents to ER via Ambulatory with complaints of Abdominal Pain. 09:31 The patient presents with abdominal pain in the lower abdomen. Onset: The symptoms/episode began/occurred 1 day(s) ago. The symptoms do not radiate. Associated signs and symptoms: none. The symptoms are described as sharp. Modifying factors: The symptoms are alleviated by nothing, the symptoms are aggravated by nothing. Severity of pain: At its worst the pain was moderate in the emergency department the pain is unchanged. The patient has not experienced similar symptoms in the past. Historical: - Allergies: 08:11 Iodinated Contrast Media - IV Dye; ll1 08:11 [place] (Itching); ll1 08:11 SHELLFISH; ll1 08:11 steroid shot (elevated BP); ll1 08:11 Latex, Natural Rubber; ll1 - PMHx: 08:11 Hypertensive disorder; ll1 - PSHx: 08:11 None; ll1 - Immunization history:: Client reports receiving the 2nd dose of the Covid vaccine. - Social history:: Smoking status: Patient denies any tobacco usage or history of. - Family history:: not pertinent. ROS: 09:31 Constitutional: Negative for fever, chills, and weight loss, Eyes: Negative for injury, pain, redness, and discharge, ENT: Negative for injury, pain, and discharge, Neck: Negative for injury, pain, and swelling, Cardiovascular: Negative for chest pain, palpitations, and edema, Respiratory: Negative for shortness of breath, cough, wheezing, and pleuritic chest pain, Back: Negative for injury and pain, : Negative for injury, bleeding, discharge, and swelling, MS/Extremity: Negative for injury and deformity, Skin: Negative for injury, rash, and discoloration, Neuro: Negative for headache, weakness, numbness, tingling, and seizure, Psych: Negative for depression, anxiety, suicide ideation, homicidal ideation, and hallucinations, Allergy/Immunology: Negative for hives, rash, and allergies, Endocrine: Negative for neck swelling, polydipsia, polyuria, polyphagia, and marked weight changes, Hematologic/Lymphatic: Negative for swollen nodes, abnormal bleeding, and unusual bruising. 09:31 Abdomen/GI: Positive for abdominal pain, of the suprapubic area, right lower quadrant and left lower quadrant. Exam: 09:31 Constitutional: This is a well developed, well nourished patient who is awake, alert, and in no acute distress. Head/Face: Normocephalic, atraumatic. Eyes: Pupils equal round and reactive to light, extra-ocular motions intact. Lids and lashes normal. Conjunctiva and sclera are non-icteric and not injected. Cornea within normal limits. Periorbital areas with no swelling, redness, or edema. ENT: Nares patent. No nasal discharge, no septal abnormalities noted. Tympanic membranes are normal and external auditory canals are clear. Oropharynx with no redness, swelling, or masses, exudates, or evidence of obstruction, uvula midline. Mucous membranes moist. Neck: Trachea midline, no thyromegaly or masses palpated, and no cervical lymphadenopathy. Supple, full range of motion without nuchal rigidity, or vertebral point tenderness. No Meningismus. Chest/axilla: Normal chest wall appearance and motion. Nontender with no deformity. No lesions are appreciated. Cardiovascular: Regular rate and rhythm with a normal S1 and S2. No gallops, murmurs, or rubs. Normal PMI, no JVD. No pulse deficits. Respiratory: Lungs have equal breath sounds bilaterally, clear to auscultation and percussion. No rales, rhonchi or wheezes noted. No increased work of breathing, no retractions or nasal flaring. Back: No spinal tenderness. No costovertebral tenderness. Full range of motion. Male : Normal genitalia with no discharge or lesions. Skin: Warm, dry with normal turgor. Normal color with no rashes, no lesions, and no evidence of cellulitis. MS/ Extremity: Pulses equal, no cyanosis. Neurovascular intact. Full, normal range of motion. Neuro: Awake and alert, GCS 15, oriented to person, place, time, and situation. Cranial nerves II-XII grossly intact. Motor strength 5/5 in all extremities. Sensory grossly intact. Cerebellar exam normal. Normal gait. Psych: Awake, alert, with orientation to person, place and time. Behavior, mood, and affect are within normal limits. 09:31 Abdomen/GI: Inspection: abdomen appears normal, Bowel sounds: normal, Palpation: mild abdominal tenderness, in the suprapubic area, Rectal exam: Liver: no appreciated palpable abnormalities, Hernia: not appreciated. Vital Signs: 08:09 BP 168 / 70; Pulse 61; Resp 17; Temp 97.6; Pulse Ox 98% ; Weight 74.84 kg; Height 5 ft. ll1 8 in. (172.72 cm); Pain 9/10; 08:30 BP 154 / 66; Pulse 57; Resp 18; Pulse Ox 99% ; Pain 9/10; jh6 09:30 BP 152 / 69; Pulse 56; Resp 17; Pulse Ox 99% ; Pain 6/10; jh6 08:09 Body Mass Index 25.09 (74.84 kg, 172.72 cm) ll1 MDM: 08:05 Patient medically screened. [facility] 09:34 Differential diagnosis: bowel obstruction, gastritis, non-specific abd pain, pancreatitis, Prostatitis, Pyelonephritis, Ureterolithiasis, urinary tract infection. Data reviewed: vital signs, nurses notes, lab test result(s), EKG, radiologic studies, CT scan, plain films. Data interpreted: ekg monitor: rate is 61 beats/min, rhythm is Pulse oximetry: on room air. Test interpretation: by ED physician or midlevel provider: ECG, plain radiologic studies. Counseling: I had a detailed discussion with the patient and/or guardian regarding: the historical points, exam findings, and any diagnostic results supporting the discharge/admit diagnosis, lab results, radiology results, the need for outpatient follow up, for definitive care, a urologist. 07/19 08:08 Order name: Basic Metabolic Panel 07/19 08:08 Order name: CBC with Diff; Complete Time: 09:21 07/19 08:08 Order name: LFT's 07/19 08:08 Order name: Magnesium 07/19 08:08 Order name: NT PRO-BNP 07/19 08:08 Order name: PT-INR; Complete Time: 09:21 07/19 08:08 Order name: Troponin HS 07/19 08:08 Order name: Lipase 07/19 08:08 Order name: Lactate; Complete Time: 10:03 [facility] 07/19 09:18 Order name: SARS-COV-2 RT PCR; Complete Time: 10:03 EDMT 07/19 09:31 Order name: Urine Culture [facility] 07/19 09:36 Order name: Urine Dipstick-Ancillary; Complete Time: 10:03 EDMT 07/19 08:08 Order name: XRAY Chest (1 view); Complete Time: 10:03 [facility] 07/19 08:08 Order name: EKG; Complete Time: 08:09 [facility] 07/19 08:08 Order name: Cardiac monitoring; Complete Time: 08:38 [facility] 07/19 08:08 Order name: EKG - Nurse/Tech [facility] 07/19 08:08 Order name: IV Saline Lock; Complete Time: 08:39 [facility] 07/19 08:08 Order name: Labs collected and sent; Complete Time: 08:39 [facility] 07/19 08:27 Order name: Abdomen ; Complete Time: 09:21 EDMT 07/19 08:08 Order name: O2 Per Protocol; Complete Time: 08:39 [facility] 07/19 08:08 Order name: O2 Sat Monitoring; Complete Time: 08:39 [facility] 07/19 08:08 Order name: Urine Dipstick-Ancillary (obtain specimen); Complete Time: 08:43 [facility] Administered Medications: 08:38 Drug: Pepcid (famotidine) 20 mg Route: IVP; Site: right antecubital; jh6 10:01 Follow up: Response: No adverse reaction ap3 08:38 Drug: fentaNYL (PF) 25 mcg Route: IVP; Site: right antecubital; jh6 10:01 Follow up: Response: No adverse reaction; Pain is unchanged, physician notified ap3 08:38 Drug: Zofran (Ondansetron) 4 mg Route: IVP; Site: right antecubital; jh6 10:01 Follow up: Response: No adverse reaction ap3 09:46 Drug: Rocephin (cefTRIAXone) 1 grams Route: IV; Rate: per protocol; Site: right wrist; jh6 09:55 Follow up: Response: No adverse reaction jh6 09:46 Drug: NS 0.9% 1000 ml Route: IV; Rate: 1 bolus; Site: right wrist; jh6 09:47 Drug: Flomax (tamsulosin) 0.4 mg Route: PO; 6 09:55 Follow up: Response: No adverse reaction 6 09:47 Drug: Ketorolac 30 mg Route: IVP; Site: right wrist; 6 09:55 Follow up: Response: Pain is decreased 6 09:47 CANCELLED (Duplicate Order): NS 0.9% 1000 ml IV at 1 bolus Per protocol; 1000 mL bolus [facility] Disposition Summary: 07/19/21 09:38 Discharge Ordered Location: Home Problem: new Symptoms: have improved Condition: Stable Diagnosis - Hydronephrosis with renal and ureteral calculous obstruction - 7 mm distal right calculi - Lower abdominal pain, unspecified Followup: - With: Private Physician - When: 2 - 3 days - Reason: Recheck today's complaints, Continuance of care, Re-evaluation by your physician Followup: - With: Daniel Lynch MD - When: 2 - 3 days - Reason: Recheck today's complaints, Re-evaluation by your physician Discharge Instructions: - Discharge Summary Sheet - Abdominal Pain, Adult - Kidney Stones - Kidney Stones, Lxeo-ri-Hcdr - Hydronephrosis [facility] - Dietary Guidelines to Help Prevent Kidney Stones [facility] Forms: - Medication Reconciliation Form [facility] - Thank You Letter [facility] - Antibiotic Education [facility] - Prescription Opioid Use [facility] Prescriptions: - Cipro 250 mg Oral Tablet - take 2 tablets by ORAL route every 12 hours; 20 tablet; Refills: 0, Product [facility] Selection Permitted - Zofran 4 mg Oral Tablet - take 1 tablet by ORAL route every 12 hours As needed; 20 tablet; Refills: 0, [facility] Product Selection Permitted - Tramadol 50 mg Oral Tablet - take 1 tablet by ORAL route every 6 hours as needed; 20 tablet; Refills: 0, [facility] Product Selection Permitted - tamsulosin 0.4 mg Oral capsule - take 1 capsule by ORAL route once daily 1/2 hour following the same meal each [facility] day; 20 capsule; Refills: 0, Product Selection Permitted Signatures: Dispatcher [employer] Angel Gomes MD MD cha Lewis, Lynsay RN RN ll1 Roxy Bosch RN RN jh6 Emmanuelle Doty RN ap3 Corrections: (The following items were deleted from the chart) 08:27 08:09 Abdomen Pelvis W Con+CT.RAD.BRZ ordered. EDMS EDMS 09:18 08:09 COVID 19 CPL+.BRZ ordered. EDMS EDMS 09:47 09:23 NS 0.9% 1000 ml IV at 1 bolus Per protocol; 1000 mL bolus ordered. jh6
--- NOTE | 2021-07-19 09:38 | ER ---
Nurse's Notes [facility] Name: Ayaz Brunson Jr Age: 81 yrs Sex: Male : 1940 Arrival Date: 07/19/2021 Time: 08:01 Bed 6 Private MD: Diagnosis: Hydronephrosis with renal and ureteral calculous obstruction-7 mm distal right calculi;Lower abdominal pain, unspecified Presentation: 07/19 08:09 Chief complaint: Patient states: Abd pain with some nausea since 11 PM last night. ll1 Worried about another diverticulitis flare-up. Coronavirus screen: Vaccine status: Patient reports receiving the 2nd dose of the covid vaccine. Client denies travel out of the [place] in the last 14 days. congestion, At this time, the client does not indicate any symptoms associated with coronavirus-19. Ebola Screen: Patient denies travel to an Ebola-affected area in the 21 days before illness onset. Initial Sepsis Screen: Does the patient meet any 2 criteria? No. Patient's initial sepsis screen is negative. Does the patient have a suspected source of infection? Yes: Acute abdominal pain. Risk Assessment: Do you want to hurt yourself or someone else? Patient reports no desire to harm self or others. Onset of symptoms was July 18, 2021. 08:09 Method Of Arrival: Ambulatory ll1 08:09 Acuity: DOUGLAS 3 ll1 Triage Assessment: 08:11 General: Appears in no apparent distress. Behavior is calm, cooperative, appropriate ll1 for age. Pain: Complains of pain in abdomen. Neuro: No deficits noted. Cardiovascular: No deficits noted. GI: Reports lower abdominal pain, upper abdominal pain, nausea. Historical: - Allergies: 08:11 Iodinated Contrast Media - IV Dye; ll1 08:11 [place] (Itching); ll1 08:11 SHELLFISH; ll1 08:11 steroid shot (elevated BP); ll1 08:11 Latex, Natural Rubber; ll1 - PMHx: 08:11 Hypertensive disorder; ll1 - PSHx: 08:11 None; ll1 - Immunization history:: Client reports receiving the 2nd dose of the Covid vaccine. - Social history:: Smoking status: Patient denies any tobacco usage or history of. - Family history:: not pertinent. Screenin:30 Abuse screen: Denies threats or abuse. jh6 08:30 Nutritional screening: No deficits noted. Tuberculosis screening: No symptoms or risk jh6 factors identified. Fall Risk None identified. Assessment: 08:30 General: Appears uncomfortable, Behavior is calm, cooperative. jh6 08:30 Pain: Complains of pain in suprapubic area and right lower quadrant Pain currently is 9 jh6 out of 10 on a pain scale. Quality of pain is described as aching, sharp, shooting, Pain began suddenly. GI: Abdomen is flat, non-distended, Abdomen is tender to palpation in suprapubic area, anterior aspect of right lateral abdomen, right upper quadrant and right lower quadrant. 09:30 Reassessment: Patient and/or family updated on plan of care and expected duration. Pain jh6 level reassessed. Patient is alert, oriented x 3, equal unlabored respirations, skin warm/dry/pink. 09:30 Pain: Complains of pain in abdomen Pain currently is 6 out of 10 on a pain scale. jh6 09:55 GI: Bowel sounds present X 4 quads. jh6 11:10 Reassessment: Patient appears in no apparent distress at this time. Patient and/or ss family updated on plan of care and expected duration. Pain level reassessed. Patient is alert, oriented x 3, equal unlabored respirations, skin warm/dry/pink. Vital Signs: 08:09 BP 168 / 70; Pulse 61; Resp 17; Temp 97.6; Pulse Ox 98% ; Weight 74.84 kg; Height 5 ft. ll1 8 in. (172.72 cm); Pain 9/10; 08:30 BP 154 / 66; Pulse 57; Resp 18; Pulse Ox 99% ; Pain 9/10; jh6 09:30 BP 152 / 69; Pulse 56; Resp 17; Pulse Ox 99% ; Pain 6/10; jh6 08:09 Body Mass Index 25.09 (74.84 kg, 172.72 cm) ll1 ED Course: 08:01 Patient arrived in ED. rg4 08:05 Angel Molina MD is Attending Physician. [facility] 08:11 Triage completed. ll1 08:11 Arm band placed on Patient placed in an exam room, on a stretcher. ll1 08:25 XRAY Chest (1 view) In Process Unspecified. EDMS 08:30 Placed in gown. Call light in reach. Side rails up X 1. Adult w/ patient. jh6 08:30 Inserted saline lock: 20 gauge in right wrist, using aseptic technique. jh6 08:30 Urine collected: COVID swab sent to lab. jh6 08:43 Abdomen In Process Unspecified. EDMS 09:35 Daniel Lynch MD is Referral Physician. [facility] 09:55 Roxy Bosch RN is Primary Nurse. 6 11:10 No provider procedures requiring assistance completed. IV discontinued, intact, ss bleeding controlled, No redness/swelling at site. Pressure dressing applied. Administered Medications: 08:38 Drug: Pepcid (famotidine) 20 mg Route: IVP; Site: right antecubital; jh6 10:01 Follow up: Response: No adverse reaction ap3 08:38 Drug: fentaNYL (PF) 25 mcg Route: IVP; Site: right antecubital; jh6 10:01 Follow up: Response: No adverse reaction; Pain is unchanged, physician notified ap3 08:38 Drug: Zofran (Ondansetron) 4 mg Route: IVP; Site: right antecubital; jh6 10:01 Follow up: Response: No adverse reaction ap3 09:46 Drug: Rocephin (cefTRIAXone) 1 grams Route: IV; Rate: per protocol; Site: right wrist; jh6 09:55 Follow up: Response: No adverse reaction jh6 09:46 Drug: NS 0.9% 1000 ml Route: IV; Rate: 1 bolus; Site: right wrist; jh6 09:47 Drug: Flomax (tamsulosin) 0.4 mg Route: PO; jh6 09:55 Follow up: Response: No adverse reaction jh6 09:47 Drug: Ketorolac 30 mg Route: IVP; Site: right wrist; jh6 09:55 Follow up: Response: Pain is decreased jh6 09:47 CANCELLED (Duplicate Order): NS 0.9% 1000 ml IV at 1 bolus Per protocol; 1000 mL bolus 6 Outcome: 09:38 Discharge ordered by . 11:10 Discharged to home ambulatory. ss 11:10 Condition: good 11:10 Discharge instructions given to patient, significant other, Instructed on discharge instructions, follow up and referral plans. Demonstrated understanding of instructions, follow-up care, medications, Prescriptions given X 4. 11:13 Patient left the ED. ss Signatures: Dispatcher [employer] EDMS Angel Molina MD MD cha Smirch, Shelby, RN RN Antonia Cohen4 Emmanuelle Doty RN RN ap3 Ciara Moran RN RN ll1 Roxy Bosch RN RN jh6
[2021-07-19] MEDS ORDERED: TAMSULOSIN 0.4 MG SR CAP ONE (09:39)
[2021-07-19] MEDS ORDERED: NA CHLORIDE 0.9% 1,000 ML ONE (09:39)
[2021-07-19] MEDS ORDERED: KETOROLAC 30 MG/ML INJ ONE (09:39)
[2021-07-19] MEDS ORDERED: NA CHLORIDE 0.9% 100 ML ONE (09:39)
[2021-07-19] MEDS ORDERED: CEFTRIAXONE 1000 MG/VIAL ONE (09:39)
--- NOTE | 2021-07-19 09:58 | RAD REPORT ---
EXAM DESCRIPTION: RAD - Chest Single View - 07/19/2021 8:25 am CLINICAL HISTORY: Cough;Abdominal distention Chest pain. COMPARISON: Chest Pa And Lat (2 Views) dated 06/13/2021; Chest Pa And Lat (2 Views) dated 04/18/2020; CHEST PA AND LAT 2 VIEW dated 12/01/2013; CHEST PA AND LAT 2 VIEW dated 01/24/2008 FINDINGS: Portable technique limits examination quality. The lungs are grossly clear. The heart is normal in size. No displaced fractures.Sternotomy wires pre sent. IMPRESSION: No acute intrathoracic process suspected.
[2021-07-19 11:18] VITALS: TEMP 97.6
[2021-07-19 11:20] VITALS: O2SAT 99
[2021-07-19 11:21] VITALS: BP 152/69
[2021-07-19 13:55] LABS: Magnesium 1.9 mg/dL (1.8-2.4)
== END 2021-07-19 11:13 | disposition home or self-care (01) ==
LOC: ER 07:58
DX: N13.2 Hydronephrosis with renal and ureteral calculous obstruction (principal); I10 Essential (primary) hypertension; Z88.5 Allergy status to narcotic agent; Z88.8 Allergy status to other drugs, medicaments and biological substances; Z91.013 Allergy to seafood; Z91.040 Latex allergy status; Z91.041 Radiographic dye allergy status; Z20.822 Contact with and (suspected) exposure to COVID-19
CPT/HCPCS: 85025; 80048; 36415; 83735; 85610; 80076; 83605; 81003; 84484; 83690; 83880; 74176; 71045; 99284; U0003; J3010; J7030; J2405

== ENCOUNTER 2022-02-28 10:00 | Day surgery (SDC) | payer OTHER ==
[2022-02-28] MEDS ORDERED: Ringers Lactate 1,000 ML IV ONE (10:31)
[2022-02-28] MEDS ORDERED: CEFAZOLIN SODIUM 1 GM/VIAL ONE (10:31)
[2022-02-28 10:37] LABS: Absolute Lymphocytes (CBC) 2.5 K/uL (0.7-4.9); Hematocrit 39.9 % (39.6-49.0); Lymphocytes % 25.3 % (15.3-44.8); MCV 90.6 fL (80-100); MPV 7.7 fL (7.6-11.3); RBC Red Blood Cell Count 4.41 M/uL (4.33-5.43)
[2022-02-28 10:51] LABS: Potassium 3.8 mmol/L (3.5-5.1)
[2022-02-28 11:00] LABS: SARS-CoV-2 Antigen Rapid Res Negative (Negative)
--- NOTE | 2022-02-28 11:29 | RAD REPORT ---
EXAM DESCRIPTION: RAD - Chest Pa And Lat (2 Views) - 02/28/2022 11:09 am CLINICAL HISTORY: pre procedure screening COMPARISON: Portable 07/19/2021 TECHNIQUE: Frontal and lateral views of the chest were obtained. FINDINGS: The lungs are clear of failure, infiltrate and mass. Chronic interstitial pattern matches comparison. No hilar mass or lymphadenopathy. Sternotomy wires are in place. Heart size is normal and central vasculature is within normal limits . No pleural effusion or pneumothorax seen. No acute bony finding noted. No aortic abnormality. N o significant change from comparison study. IMPRESSION: No acute cardiopulmonary process.
[2022-02-28] MEDS ORDERED: FENTANYL CITR 100 MCG/2 ML ONE (11:57)
[2022-02-28] MEDS ORDERED: LIDOCAINE 1% MPF 5 ML VIAL ONE (11:57)
[2022-02-28] MEDS ORDERED: propofoL 200 MG/20 ML VIAL IV ONE (11:57)
[2022-02-28] MEDS ORDERED: ROCURONIUM 50 MG/5 ML VIAL IV ONE (11:57)
[2022-02-28] MEDS ORDERED: NS 0.9% VIAL 10 ML ONE (12:26)
[2022-02-28] MEDS ORDERED: ONDANSETRON 4 MG/2 ML VIAL ONE (12:41)
[2022-02-28] MEDS ORDERED: KETOROLAC 30 MG/ML INJ ONE (12:41)
[2022-02-28] MEDS ORDERED: GLYCOPYRROLATE 0.2 MG/ML SYR ONE (12:41)
[2022-02-28] MEDS ORDERED: NEOSTIGMINE 1 MG/ML -10 ML VIAL ONE (12:42)
[2022-02-28] MEDS ORDERED: EPHEDRINE SULF 50 MG/ML VIAL ONE (12:43)
--- NOTE | 2022-02-28 13:19 | P.BOP ---
Preoperative diagnosis: tender right inguinal hernia Postoperative diagnosis: same Primary procedure: Laparoscopic repair of tender right inguinal hernia with mesh reducible Beam House Inspector: Cherelle Uribe ([place]) Estimated blood loss: <10cc Specimen: none Findings: RIH Anesthesia: General Complications: None Implants: medium Transferred to: Recovery Room Condition: Good
[2022-02-28 13:41] VITALS: O2SAT 97
[2022-02-28 14:49] VITALS: BP 144/54; TEMP 96.8
--- NOTE | 2022-03-03 14:15 | EKG ---
Test Date: 2022-02-28 Test Time: 10:35:04 Astro Technician: MARIA R MEASUREMENT RESULTS: Intervals: Rate: 61 MO: 164 QRSD: 104 QT: 404 QTc: 406 [place]: P: 81 MO: 164 QRS: 29 T: 55 INTERPRETIVE STATEMENTS: Normal sinus rhythm Incomplete right bundle branch block Cannot rule out Anteroseptal infarct, age undetermined Abnormal ECG Compared to ECG 06/18/2020 11:19:02 Incomplete right bundle-branch block now present Myocardial infarct finding still present Electronically Signed On 03-03-22 14:11:14 CDT by Alessio Amato
--- NOTE | 2022-03-04 16:10 | DS ---
Date of Discharge: 02/28/2022 Diagnosis: Tender right inguinal hernia. Procedure: Laparoscopic repair of tender right inguinal hernia with mesh. Disposition: Home. Activity: As tolerated. No heavy lifting. Plan: Follow up in my office in 1 week. Call for appointment at [phone]. Cold compress to the rig ht inguinal region for 24 hours. BEVERLEY/ANIVAL Voice ID: [id number] Report ID: [id number]
--- NOTE | 2022-03-05 09:31 | OP ---
Date of Procedure: 03/04/2022 Surgeon: Chava Ramirez MD Marker Machine Attendant: Cherelle Preston. Preoperative Diagnosis: Tender right inguinal hernia. Postoperative Diagnosis: Tender right inguinal hernia. Procedure: Laparoscopic repair of tender right inguinal hernia with mesh. Estimated Blood Loss: Less than 10 cc. Findings: Right inguinal hernia. Implants: A medium mesh sheet. Complications: None. Indication: This is the case of an 81-year-old patient, who comes to us with a tender right inguinal hernia. The benefits, alternatives, and risks of laparoscopic versus open repair with mesh use full y explained, which in include, but not limited to infection, bleeding, damage to adjacent structures, anesthesia complication, recurrence, CO and even . He also understands this may not relieve an y symptoms. He might need more than one surgical intervention. He understood, signed a consent. Th e area of concern was marked by me and the patient in the holding room. Questions about the mesh use were answered to his satisfaction. He did consent for the use of mesh. Procedure In Detail: The patient was brought to the operating room, placed in supine position. Anes thesia was done without complication. A time-out was called. Abdomen and inguinal area were prepped and draped in the usual sterile fashion. Local anesthetic was applied followed by sharp incision of the skin in the infraumbilical region. The patient has a previous appendectomy incision in the [facility] upper side, but we were able to stay away from that open appendectomy done many years ago. The inc ision was carried down in the infraumbilical region until we found the anterior rectus sheath that wa s opened on the right side and retracted laterally to expose the posterior rectus sheath. The extrap eritoneal space was gently developed with the help of blunt dissection and then a balloon-tipped troc ar was placed in that area under direct visualization and inflated under direct visualization after b eing directed towards the pubis symphysis. Once we deflated the balloon, then we removed the balloon and once again insufflated the area and placed a trocar under direct visualization just above the pu bis symphysis and another 1 senior care between the first and the second one. The preperitoneal space wa s further developed by exposing the inferior epigastric vessels keeping them anterior. Jarvis bennett nt was dissected laterally to the junction with the iliac veins. The dissection continued inferiorly to the iliopubic tract avoiding damage to the femoral branch of the genitofemoral nerve and lateral femoral cutaneous nerve. The cord structures were carefully skeletonized. The hernia was identified and reduced into the peritoneal cavity. We did that by mobilizing the hernia sac from the cord stru ctures making sure the spermatic cord structures are left intact. At that moment, we proceeded to in troduce through the umbilical trocar a medium mesh 3D and placed in the working place. The mesh was placed in a way to cover indirect and direct spaces. The mesh was secured in place with a SorbaFix f ixation device lateral and superior to the iliopubic tract and inferior medial to the Jarvis ligament . After ensuring adequate hemostasis, then we proceeded to stop the insufflation and allowed the air to escape while holding the mesh in position. The trocars were removed and the anterior rectus theodore th was closed with #1 Vicryl and the skin was approximated. Sponge counts and instrument counts elizabeth ect at the end of the case. Testicles were within the scrotum. The patient tolerated the procedure well. The patient was sent to recovery in stable condition. BEVERLEY/ANIVAL Voice ID: [id number] Report ID: [id number]
== END 2022-02-28 14:45 | disposition home or self-care (01) ==
LOC: OR 10:00
PROVIDERS: ATTEND Surgery
PROC: 0YU54JZ Supplement Right Inguinal Region with Synthetic Substitute, Percutaneous Endoscopic Approach (ICD-10-PCS; principal; 2022-02-28 12:30)
DX: K40.90 Unilateral inguinal hernia, without obstruction or gangrene, not specified as recurrent (principal); Z20.822 Contact with and (suspected) exposure to COVID-19; I10 Essential (primary) hypertension; E11.9 Type 2 diabetes mellitus without complications; I51.9 Heart disease, unspecified; E78.1 Pure hyperglyceridemia
CPT/HCPCS: 93005; 85025; 80048; 36415; 71046; 87811; 49650; J2704; J2710; J2001; J3010; A4216; J7120; J2405; J0690

== ENCOUNTER 2024-04-07 11:00 | Day surgery (SDC) | payer OTHER ==
[2024-03-29 14:47] LABS: Absolute Basophils 0.1 K/uL (0-0.5); Absolute Eosinophils 0.4 K/uL (0-0.5); Absolute Lymphocytes (CBC) 2.4 K/uL (0.7-4.9); Absolute Monocytes 0.7 K/uL (0.1-1.3); Absolute Neutrophil 5.7 K/uL (1.8-8.0); Basophils % 0.6 % (0-1.3); Eosinophils % 4.7 % (0-4.4); Hematocrit 43.1 % (39.6-49.0); Hemoglobin 14.3 g/dL (13.6-17.9); Lymphocytes % 25.8 % (15.3-44.8); MCH 31.8 pg (27.0-35.0); MCHC 33.3 g/dL (32.0-36.0); MCV 95.5 fL (80-100); MPV 8.4 fL (7.6-11.3); Monocytes % 7.3 % (3.3-12.3); Neutrophils % 61.6 % (41.7-73.7); Platelets 198 thou/uL (152-406); RBC Red Blood Cell Count 4.51 M/uL (4.33-5.43); Red Cell Distribution Width 12.9 % (12.1-15.2)
[2024-03-29 14:57] LABS: PT Prothrombin Time 11.7 SECONDS (9.4-12.5); PTT, Activated Partial Thromb 28.4 SECONDS (24.3-36.9); Protime INR 1.05
--- NOTE | 2024-03-29 14:57 | RAD REPORT ---
EXAM: Chest Pa And Lat (2 Views) HISTORY: Pre op pending heart catheterization, hypertension COMPARISON: 07/07/2023 FINDINGS: LUNGS/PLEURA: The lungs are clear. No pleural effusions or pneumothorax. No pulmonary edema. Tiny mery cified right upper lobe nodule MEDIASTINUM: The mediastinal silhouette is within normal limits. CARDIAC: The cardiac silhouette is within normal limits. UPPER ABDOMEN: No significant abnormality. BONES: No acute fracture. Sternotomy LINES/TUBES/OTHER: N/A IMPRESSION: No evidence of acute cardiopulmonary disease
[2024-03-29 15:05] LABS: Anion Gap 8.2 mEq/L (5.0-15.0); Potassium 4.2 mEq/L (3.5-5.1)
--- NOTE | 2024-03-31 12:22 | EKG ---
Test Date: 2024-03-29 Test Time: 14:27:19 Recruitment Manager: ROCIO MEASUREMENT RESULTS: Intervals: Rate: 62 MT: 152 QRSD: 98 QT: 398 QTc: 403 [place]: P: 73 MT: 152 QRS: 44 T: 60 INTERPRETIVE STATEMENTS: Normal sinus rhythm Incomplete right bundle branch block Septal infarct, age undetermined Abnormal ECG Compared to ECG 02/28/2022 10:35:04 No significant changes Electronically Signed On 03-31-24 12:17:08 CDT by Gaston Noel
[2024-04-07] MEDS: NA CHLORIDE 0.9% 500 ML ONE (11:05)
[2024-04-07] MEDS ORDERED: HEPA 1000U/500MLS 2,000 UNIT/1,000 ML BAG IV ONE (11:58)
[2024-04-07] MEDS ORDERED: VERAPAMIL HCL 10 MG/4 ML VIAL IV ONE (11:59)
[2024-04-07] MEDS ORDERED: HEPARIN 10,000 UNIT/10 ML VIAL IV ONE (11:59)
[2024-04-07] MEDS ORDERED: MIDAZOLAM HCL 2 MG/2 ML INJ ONE (11:59)
[2024-04-07] MEDS ORDERED: ATROPINE SULF 1 MG/10 ML SYR IV ONE (11:59)
[2024-04-07] MEDS ORDERED: CLOPIDOGREL 75 MG TABLET ONE (11:59)
[2024-04-07] MEDS ORDERED: LIDOCAINE 1% 20 ML MDV ONE (11:59)
[2024-04-07] MEDS ORDERED: HEPARIN 5000 UNIT/ML 1 ML VIAL ONE (12:00)
[2024-04-07] MEDS ORDERED: ASPIRIN 325 MG TAB ONE (12:00)
[2024-04-07] MEDS ORDERED: FENTANYL CITR 100 MCG/2 ML ONE (12:00)
[2024-04-07] MEDS ORDERED: TICAGRELOR 90 MG TABLET PO ONE (12:00)
[2024-04-07] MEDS ORDERED: METHYLPREDNISOLONE 125 MG INJ ONE (12:02)
[2024-04-07] MEDS ORDERED: DIPHENHYDRAMINE 50 MG/ML VIAL ONE (12:02)
[2024-04-07 15:51] VITALS: O2SAT 95
[2024-04-07 16:25] VITALS: BP 149/73
--- NOTE | 2024-04-07 22:34 | OP ---
Date of Procedure: 04/07/2024 Surgeon: DASHAWN ROSARIO Procedures Performed: 1.Selective coronary angiogram. 2.Left heart catheterization. 3.Right heart catheterization. Indication: Aortic valve stenosis evaluation. Access: 1.Right common femoral artery 6-[place] closed with 6-[place] Angio-Seal. 2.Right IJ 7-[place] closed with manual pressure. Complications: None. Bleeding: Less than 50 mL. Anesthesia: Total sedation time is 1 hour. Used fentanyl and Versed. Description Of Procedure: After risks, benefits, and alternatives were explained, the patient agreed to the procedure and signed informed consent. The patient was brought into cardiac catheterization laboratory, prepped and draped in usual sterile fashion. Then, I accessed right IJ using micropunctu re kit, ultrasound guidance, and placed 7-[place] Craigmont sheath. Then, I accessed right common femo ral artery using micropuncture kit, ultrasound guidance, and fluoroscopy, placed 6-[place] sh eath and then I took a 7-[place] balloon-tipped Davis catheter through the IJ access into the right atr ium, right ventricle, pulmonary artery and wedge and obtained waveform and pressures and then obtaine d the thermodilutional cardiac output and then removed the Davis. Then, took a 6-[place] JL4 catheter through the femoral access into the aortic root, engaged left main, took standard views and then exch anged for 6-[place] JR4 catheter, engaged the RCA, took standard views and then engaged the SVG to RCA and took standard views and the SVG to diagonal branch and took standard views and then engaged the VOGEL to LAD and took standard views and then across the aortic valve and exchanged for Telford ragini ter and did simultaneous measurements of the LV and aorta pressure and obtained a gradient in the agusto ve area and then removed the catheter and the groin sheath was removed and placed 6-[place] Angio-Seal with good hemostasis and then removed the IJ catheter and manual pressure was applied for closure wi th good hemostasis. Findings: 1.The coronary angiogram: a.Left main is normal and large. b.LAD; proximal segment is normal and then it becomes severely diseased at 90% to 95%. c.Left circumflex is normal and it is dominant. d.RCA; small, nondominant with diffuse 80% stenosis. 2.Bypass graft study: a.Widely patent VOGEL to LAD. b.Patent SVG to diagonal 1 branch. c.Patent SVG to RCA. 3.Right heart cath numbers: RA pressure was 3, RV pressure was 32/1, mean of 6, pulmonary artery pr essure was 31/8, mean of 15. Pulmonary wedge was 8 and LVEDP was at 15 mmHg. 4.Cardiac output was 4.5 L/minute and aortic valve gradient was 26 mmHg and the aortic valve area wa s 0.97 sq cm. Conclusion: 1.Severe coronary artery disease with widely patent grafts as outlined above. 2.Severe low-flow low-gradient aortic valve stenosis. Recommendation: Proceed with TAVR. SR/MODL Voice ID: [id number] Report ID: [id number]
== END 2024-04-07 16:28 | disposition home or self-care (01) ==
LOC: CCL 11:00
PROVIDERS: ATTEND Internal Medicine
DX: I35.0 Nonrheumatic aortic (valve) stenosis (principal); I25.10 Atherosclerotic heart disease of native coronary artery without angina pectoris; I10 Essential (primary) hypertension; E78.5 Hyperlipidemia, unspecified; Z95.1 Presence of aortocoronary bypass graft; Z79.82 Long term (current) use of aspirin; Z79.899 Other long term (current) drug therapy; Z91.041 Radiographic dye allergy status
CPT/HCPCS: 93005; 85025; 80048; 36415; 85610; 85730; 71046; 93461; 76937; C1893; C1760; Q9967; G0269; J2003; J1200; J2250; J3010; J2919; J7040; 99152; 99153; J0461; J1644

== ENCOUNTER 2025-01-16 08:15 | Observation (INO) | payer OTHER ==
--- OUTSIDE RECORDS SUMMARY | 2025-01-16 08:21 | XMS REPORT | Continuity of Care Document ---
Author Name Unknown Address [address] [facility] [place] [address] Organization [facility] Address [address] [facility] [address] [place] [address] Care Team Providers Care Assistant Oceanographer Name Role Phone Angelica Parada Primary Care Physi olga ANGELICA JOAQUIN Attending Clinician TRINI Calles Attending Clinician Unavai lable [id number], Phy [facility] Attending Clinician Sandhya Mcdaniel MD Attending Clinician [phone] SANDHYA HANSEN Attending Clinician Unavailable Alessio Amato Attending Clinician Unavailable Angelica Luna Attending Clinician + Doctor Unassigned, [place] Attending Clinician Romi Avila Attending Clinician [phone] ROMI REESE Attending Clinician Unavailable Raju_P Attending Clinician Unavailable SERGIO MILLER Attending Clinician UnavailSergio Posadas MD Attending Clinician [phone] Pob, [facility] Attending Clinician Trini Calles MD Attending Clinician [phone] Nurse, [facility] General Surgery Attending Clinician TRINI Crawford Admitting Clinician Sean bourne Physician, No Primary or Family Admitting Clinic teagan Unavailable Kurtu_P Admitting Clinician Unavailable Trini Moore MD Admitting Clinician [phone] Payers Payer Name Policy Type Policy Number Effective Date Expirati on Date Source MEDICARE PART A \\T\\ B [id number] 2006 00:00:00 [employer] INDEMNITY [id number] 2019 00:00:00 [employer] [place] CLASS[place]/VALUE [id number] 2019 00:00:00 MEDICARE PART A AND B Medicare [id number] 2006 00:00:00 [place]MEDICARE REPLACEMENT/ADVANT AGE - HMO) [id number] 2018 00:00:00 Problems Condition Name Condition Details Condition Category Status Onset Date Resolution Date Last Treatment Date Treating Clinician Comments Source Chest pain Chest pain Disease Active 07-08 00:00: 00 [facility] Finger pain Finger pain Disease Active 08-15 00:00: 00 Overview: Formattin g of this note might be different from the original. Lt, Rt. hand [facility] 530.81/787 .20 530.81/787 .20 Active 10/04/2014 [facility] Diagnosis Active 10-04 00:00: 00 2014-10-10 08:49:00 Juan Miguel Butler DYSPHAGIA, GERD DYSPHAGIA, GERD Active 09/29/2014 [facility] Diagnosis Active 09-29 00:00: 00 2014-10-06 14:30:00 Juan Miguel Butler Aortic valve disorder (disorder) Aortic valve disorder (disorder) Active 01/02/2014 Problem 12/21/2020 Data migrated from [employer] on 01/15/15.<b r/>Data migrated from [employer] on 11/04/14. [facility] Problem Active 01-02 00:00: 00 2020-12-21 21:29:42 Juan Miguel Butler Pain in limb (finding) Pain in limb (finding) Active 12/26/2013 Problem 12/21/2020 Data migrated from [employer] on 01/15/15.<b r/>Data migrated from [employer] on 11/04/14. [facility] Problem Active 12-26 00:00: 00 2020-12-21 21:29:42 Juan Miguel Butler Long-term drug therapy (procedure ) Long-term drug therapy (procedure ) Active 10/17/2013 Problem 12/21/2020 Data migrated from [employer] on 01/15/15.<b r/>Data migrated from [employer] on 11/04/14. [facility] Problem Active 10-17 00:00: 00 2020-12-21 21:29:42 Juan Miguel Butler Hyperchole sterolemia (disorder) Hyperchole sterolemia (disorder) Active 02/26/2012 Problem 12/21/2020 Data migrated from [employer] on 01/15/15.<b r/>Data migrated from [employer] on 11/04/14. [facility] Problem Active 02-25 00:00: 00 2020-12-21 21:29:42 Juan Miguel Butler Coronary arterioscl erosis (disorder) Coronary arterioscl erosis (disorder) Resolved Problem 12/21/2020 [facility], [place] Problem Resolve d 2020-12-21 21:29:42 Juan Miguel Butler Dysphagia (disorder) Dysphagia (disorder) Resolved Problem 12/21/2020 [facility] [place] Problem Resolve d 2020-12-21 21:29:42 Juan Miguel Butler Esophageal reflux finding (finding) Esophageal reflux finding (finding) Resolved Problem 12/21/2020 [facility] [place] Problem Resolve d 2020-12-21 21:29:42 Juan Miguel Butler Gastroesop hageal reflux disease (disorder) Gastroesop hageal reflux disease (disorder) Resolved Problem 12/21/2020 [facility] [place] Problem Resolve d 2020-12-21 21:29:42 Juan Miguel Butler Hiatal hernia (disorder) Hiatal hernia (disorder) Resolved Problem 12/21/2020 [facility], [place] Problem Resolve d 2020-12-21 21:29:42 Memodalis Butler Carpal tunnel syndrome (disorder) Carpal tunnel syndrome (disorder) Active Problem 12/21/2020 [facility] Problem Active 2020-12-21 21:29:42 Memodalis Butler Cervical radiculopa thy (disorder) Cervical radiculopa thy (disorder) Active Problem 12/21/2020 [facility] Problem Active 2020-12-21 21:29:42 Memodalis Butler Dyspnea (finding) Dyspnea (finding) Active Problem 12/21/2020 [facility] Problem Active 2020-12-21 21:29:42 Memodalis Butler Hypertensi ve disorder, systemic arterial (disorder) Hypertensi ve disorder, systemic arterial (disorder) Active Problem 12/21/2020 Data migrated from [employer] on 01/15/15.<b r/>Data migrated from [employer] on 11/04/14. 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) Active [facility] Active 2020-12-21 21:29:42 Juan Miguel Butler Postherpet ic neuralgia (disorder) Postherpet ic neuralgia (disorder) Active Problem 12/21/2020 [facility] Problem Active 2020-12-21 21:29:42 Juan Miguel Butler Shoulder pain (finding) Shoulder pain (finding) Active Problem 12/21/2020 [facility] Problem Active 2020-12-21 21:29:42 Juan Miguel Butler Excessive sweating (finding) Excessive sweating (finding) Active Problem 12/21/2020 [facility] Problem Active 2020-12-21 21:29:42 Juan Miguel Butler ESOPHAGEAL REFLUX ESOPHAGEAL REFLUX Active [facility] Active 2014-10-10 08:49:00 Juan Miguel Butler DYSPHAGIA NOS DYSPHAGIA NOS Active [facility] Active 2014-10-10 08:49:00 Juan Miguel Butler [id number] Impingemen t syndrome, shoulder, left Problem Active [facility] [id number] Cervical radiculiti s Problem Active [facility] [id number] Chronic prostatiti s Problem Active [facility] [id number] Gross hematuria Problem Active [facility] [id number] Pain, joint, shoulder, right Problem Active [facility] [id number] Pain, joint, shoulder, left Problem Active [facility] [id number] 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, symptom details unspecifie d Problem Active [facility] [id number] Enlarged prostate without lower urinary tract symptoms (luts) Problem Active [facility] Allergies, Adverse Reactions, Alerts Allergy Name Allergy Type Status Severity Reaction(s) Onset Date Inactive Date Treating Clinician Comments Source Lisinopr il Propensi ty to adverse reaction s Active 7- 00:00: 00 Other Reaction( s): Cough, NOS Juan Miguel Flores Trazodon e Propensi ty to adverse reaction s Active GI intolerance 4-15 00:00: 00 Has constipat ion with 50 mg dose , does not sleep with this dose regimen Juan Miguel Flores Hydrocod one-Acet aminophe n Drug Allergy Active 3-19 00:00: 00 Other Reaction( s): Other (see comments) Juan Miguel Flores Hydrocor tisone Allergy to substanc e Active Itching 8-21 00:00: 00 Other Reaction( s): Other (see comments) Juan Miguel Flores Lisinopr il Propensi ty to adverse reaction s Active Cough 3 00:00: 00 [facility] LISINOPR IL DRUG INGREDI Active COUGH 09-02 00:00: 00 [facility] Other Propensi ty to adverse reaction s Active Hives, Itching 3-10 00:00: 00 Contrast dye Juan Miguel Flores Diphenhy dramine Propensi ty to adverse reaction s Active Hives, Itching 08-15 00:00: 00 Contrast dye [facility] [place] [facility] Iodinate d Contrast Media Drug Intolera nce Active Hives 08-15 00:00: 00 [facility] Dye Propensi ty to adverse reaction s Active Itching 08-15 00:00: 00 Contrast dye [facility] Hydrocod one Propensi ty to adverse reaction s Active Itching 08-15 00:00: 00 [facility] DYE DRUG INGREDI Active Hives 08-15 00:00: 00 [facility] HYDROCOD ONE DRUG INGREDI Active Hives 08-15 00:00: 00 [facility] IODINE AND IODIDE CONTAINI NG PRODUCTS Drug Class Active Hives 08-15 00:00: 00 [facility] Iodine And Iodide Containi ng Products Propensi ty to adverse reaction s Active Hives 08-15 00:00: 00 [facility] HYDROcod one<sup> 1</sup> HYDROcod one<sup> 1</sup> Active 03-01 05:00: 00 [facility] Hydrocod one Allergy to substanc e Active Hives, Itching 03-01 00:00: 00 Other Reaction( s): Itching Data migrated from [employer] on 10/06/14. Originall y documente d as HYDROCODO NE. itching [facility] [place] [facility] Food Latex Food Latex Active 2008-06 00:00: 00 [facility] [place] Food Shellfis h Food Shellfis h Active Shortness of breath, Itching, Urticaria (disorder) 2008-06 00:00: 00 [facility] [place] Shellfis h Allergy Propensi ty to adverse reaction s Active Hives 2008-06 00:00: 00 Other Reaction( s): Itching, Shortness of breath [facility] Iodine Allergy to substanc e Active Hives 2008-06 00:00: 00 Other Reaction( s): Anaphylax is Data migrated from [employer] on 10/06/14. Originall y documente d as IODINE. Swollen all over [facility] [place] [facility] Latex Propensi ty to adverse reaction s Active 2008-06 00:00: 00 Other Reaction( s): Rashes Data migrated from [facility] y on 08/08/15. Originall y documente d as LATEX TAPES. rash and itching FROM THICK PLASTIC DRESSINGS [facility] lisinopr il lisinopr il Active [facility] [place] Latex<bear p>2</sup > Latex<bear p>2</sup > Active [facility] Latex<bear p>3</sup > Latex<bear p>3</sup > Active [facility] [place] Latex Latex Active Unknown [facility] acetamin ophen / hydrocod one acetamin ophen / hydrocod one Active Unknown [facility] 463 Drug allergy Active Unknown [facility] Social History Social Habit Start Date Stop Date Quantity Comments Source Gender identity 2023-08-30 08:08:29 Identifies as male gender (finding) [facility] Sexual orientation [facility] History of Tobacco Use [facility] Sex Assigned At [facility] Exposure to SARS-CoV-2 (event) Not sure [facility] Tobacco use and exposure 2024-12-30 00:00:00 2024-12-30 00:00:00 Smokeless tobacco non-user [facility] History of Social function 2024-12-30 00:00:00 2024-12-30 00:00:00 [facility] Sex 2023-08-30 08:08:29 2023-08-30 08:08:29 Male (finding) [facility] Alcohol intake 2020-06-15 00:00:00 2020-06-15 00:00:00 0 /d [facility] Social History 2014-10-06 19:57:23 2014-10-06 19:57:23 [facility] Smoking Status Start Date Stop Date Source Former Smoker [facility] Never smoked tobacco [facility] Medications Ordered Medication Name Filled Medication Name Start Date Stop Date Current Medication? Ordering Clinician Indication Dosage Frequency Signature (SIG) Comments Components Source cholecalcif anthony 50 MCG (1999) tablet cholecalcif anthony 50 MCG (1999) tablet 12-30 09:42: 00 Yes 1{tbl} QD Take 1 tablet by mouth 1 time each day. Juan Miguel Flores Cyanocobala min (Vitamin B-12) 5000 MCG sublingual tablet Cyanocobala min (Vitamin B-12) 5000 MCG sublingual tablet 12-30 09:41: 45 Yes 1{tbl} QD Place 1 tablet under the tongue 1 time each day. Juan Miguel Flores magnesium oxide (Mag-Ox) 400 MG tablet magnesium oxide (Mag-Ox) 400 MG tablet 12-30 09:41: 23 Yes 1{tbl} QD Take 1 tablet by mouth 1 time each day. Juan Miguel Flores Multiple Vitamin (multivitam in) tablet Multiple Vitamin (multivitam in) tablet 12-30 09:40: 43 Yes 1{tbl} QD Take 1 tablet by mouth 1 time each day. Juan Miguel Flores gabapentin (Neurontin) 300 MG capsule gabapentin (Neurontin) 300 MG capsule 12-30 09:30: 49 12-30 00:00 :00 No 1{capsu le} [id number] 3D Take 1 capsule by mouth in the morning and 1 capsule at noon and 1 capsule in the evening. Juan Miguel Flores nebivolol (Bystolic) 5 MG tablet nebivolol (Bystolic) 5 MG tablet 12-30 00:00: 00 Yes 5mg QD Take 1 tablet by mouth 1 time each day. Juan Miguel Flores Ascorbic Acid (vitamin C) 1000 MG tablet Ascorbic Acid (vitamin C) 1000 MG tablet 12-28 09:23: 12 Yes 1{tbl} QD Take 1 tablet by mouth 1 time each day. Juan Miguel Flores Vaucluse-3 Fatty Acids (Vaucluse 3 Fish Oil) 1000 MG capsule Vaucluse-3 Fatty Acids (Vaucluse 3 Fish Oil) 1000 MG capsule 12-28 09:21: 40 Yes 1{capsu le} QD Take 1 capsule by mouth 1 time each day. Juan Miguel Flores aspirin EC 81 MG EC tablet aspirin EC 81 MG EC tablet 12-28 09:21: 15 Yes 1{tbl} QD Take 1 tablet by mouth 1 time each day. Juan Miguel Butler Epic losartan (Cozaar) 100 MG tablet losartan (Cozaar) 100 MG tablet 02-28 00:00: 00 03-05 23:59 :00 No 1{tbl} QD Take 1 tablet by mouth 1 time each day. Juan Miguel Butler Epic rosuvastati n (Crestor) 20 MG tablet rosuvastati n (Crestor) 20 MG tablet 01-24 00:00: 00 Yes 1{tbl} QD Take 1 tablet by mouth 1 time each day. Juan Miguel Butler Epic omeprazole (PriLOSEC) [address] capsule omeprazole (PriLOSEC) [address] capsule 01-12 00:00: 00 Yes 1{capsu le} QD Take 1 capsule by mouth 1 time each day. Juan Miguel Flores Flomax 0.4 MG Flomax 0.4 MG 07-17 00:00: 00 02-12 00:00 :00 No 1{capsu le} QD Flomax 0.4 MG Cipro 500 MG Cipro 500 MG 07-17 00:00: 00 08-07 00:00 :00 No 1{table t} BID Cipro 500 MG pregabalin 50 MG Oral Capsule [Lyrica] 08-17 16:35: 00 Yes 50 mg = 1 cap, PO, BID, # 60 cap, 3 Refill(s), Pharmacy: [facility], 165.1, cm, 08/17/20 10:19:00 [employer], Height, 75.455, kg, 08/17/20 10:19:00 [employer], Weight Juan Miguel Butler Escitalopra m 08-17 16:17: 00 Yes 10 mg, PO, Daily, 0 Refill(s) Juan Miguel Butler Doxycycline 2019-06 14:30: 00 Yes 100 mg, PO, BID, 0 Refill(s) Juan Miguel Butler pregabalin 100 MG Oral Capsule [Lyrica] 2019-06 21:57: 00 Yes 100 mg = 1 cap, PO, BID, # 60 cap, 3 Refill(s), Pharmacy: [facility], 165.1, cm, 03/30/20 16:02:00 CDT, Height, 74.545, kg, 03/30/20 16:02:00 CDT, Weight Juan Miguel Butler Advil 2019-06 21:06: 00 Yes PO, Q6H, 0 Refill(s) Crissodalis dara Butler pregabalin 50 MG Oral Capsule [Lyrica] 2019-06 20:38: 00 Yes 50 mg = 1 cap, PO, BID, # 60 cap, 2 Refill(s), Pharmacy: [facility], 165.1, cm, 03/14/20 15:06:00 CDT, Height, 72.273, kg, 03/14/20 15:06:00 CDT, Weight Juan Miguel diamond Luke tramadol hydrochlori de 50 MG Oral Tablet 2019-06 20:27: 00 Yes 50 mg = 1 tab, PO, Q6H, 0 Refill(s) Juan Miguel Butler gabapentin 100 MG Oral Capsule 2019-06 20:27: 00 No 100 mg = 1 cap, PO, TID, # 90 cap, 1 Refill(s) Crissodalis dara Butler losartan 50 mg tablet 02-16 13:24: 59 Yes 25mg Take 25 mg by mouth daily. [facility] aspirin 325 mg tablet 02-16 13:24: 59 Yes 325mg Take 325 mg by mouth daily. [facility] DOCOSAHEXAN OIC ACID/EPA (FISH OIL ORAL) 02-16 13:24: 59 Yes Take by mouth. [facility] vitamin C with kirti hips (VITAMIN C) 1,000 mg tablet 02-16 13:24: 59 Yes 1000mg Take 1,000 mg by mouth daily. [facility] amLODIPine 2.5 mg tablet 02-16 13:24: 59 Yes 2.5mg Take 2.5 mg by mouth daily. [facility] rosuvastati n (CRESTOR) 20 mg tablet 02-16 13:24: 59 Yes 20mg Take 20 mg by mouth at bedtime. [facility] losartan 50 mg tablet 02-16 08:24: 59 Yes 25mg Take 25 mg by mouth daily. [facility] aspirin 325 mg tablet 02-16 08:24: 59 Yes 325mg Take 325 mg by mouth daily. [facility] DOCOSAHEXAN OIC ACID/EPA (FISH OIL ORAL) 02-16 08:24: 59 Yes Take by mouth. [facility] vitamin C with kirti hips (VITAMIN C) 1,000 mg tablet 02-16 08:24: 59 Yes 1000mg Take 1,000 mg by mouth daily. [facility] amLODIPine 2.5 mg tablet 02-16 08:24: 59 Yes 2.5mg Take 2.5 mg by mouth daily. [facility] rosuvastati n (CRESTOR) 20 mg tablet 02-16 08:24: 59 Yes 20mg Take 20 mg by mouth at bedtime. [facility] losartan 50 mg tablet 09-28 14:25: 05 Yes 25mg Take 25 mg by mouth daily. [facility] aspirin 325 mg tablet 09-28 14:25: 05 Yes 325mg Take 325 mg by mouth daily. [facility] DOCOSAHEXAN OIC ACID/EPA (FISH OIL ORAL) 09-28 14:25: 05 Yes Take by mouth. [facility] levoFLOXaci n 250 mg tablet 09-28 14:25: 05 Yes 500mg Take 500 mg by mouth every 24 (twenty-fo ur) hours. [facility] vitamin C with kirti hips (VITAMIN C) 1,000 mg tablet 09-28 14:25: 05 Yes 1000mg Take 1,000 mg by mouth daily. [facility] amLODIPine 2.5 mg tablet 09-28 14:25: 05 Yes 2.5mg Take 2.5 mg by mouth daily. [facility] rosuvastati n (CRESTOR) 20 mg tablet 09-28 14:25: 05 Yes 20mg Take 20 mg by mouth at bedtime. [facility] lactated ringers IV infusion 1,000 mL 09-28 14:15: 00 Yes 1000mL at 75 mL/hr, 1,000 mL, IV Infusion, CONTINUOUS , Starting Marian 09/29/19 at 0915, Until Discontinu ed, Routine, PACU [facility] ondansetron (ZOFRAN (PF)) injection 4 mg 09-28 14:11: 16 Yes 4mg 4 mg, Slow IV Push, PRN, 1 dose, Starting Marian 09/29/19 at 0911, Until Discontinu ed, Routine, Nausea and Vomiting (N/V), PACU [facility] dexamethaso ne (DECADRON) 0.4 mg/ 0.1 mL intravitrea l syringe 09-28 13:45: 00 Yes PRN, Starting Marian 09/29/19 at 0845, Until Discontinu ed, 0.1 mL, Intra-op [facility] EPINEPHrine (PF) 1:1,000 (1 mg/mL) (ADRENALIN (PF)) injection 09-28 13:44: 00 Yes PRN, Starting Marian 09/29/19 at 0844, Until Discontinu ed, Routine, Intra-op [facility] gentamicin injection 09-28 13:44: 00 Yes PRN, Starting Marian 09/29/19 at 0844, Until Discontinu ed, SHEREEN, Intra-op [facility] neomycin-po lymyxin-dex amethasone (MAXITROL) 3.5 mg/g-10,000 unit/g-0.1 % ophthalmic ointment 09-28 13:44: 00 Yes PRN, Starting Marian 09/29/19 at 0844, Until Discontinu ed, Routine, Intra-op [facility] water for irrigation irrigation solution 09-28 13:44: 00 Yes PRN, Starting Marian 09/29/19 at 0844, Until Discontinu ed, Routine, [facility] (DUOVISC VISCO ELASTIC) 3 %-4 %(0.5 mL) 1 % (0.55 mL) intraocular injection 09-28 13:44: 00 Yes PRN, Starting Marian 09/29/19 at 0844, Until Discontinu ed, Routine, Intra-op [facility] ceFAZolin (ANCEF) 1,000 mg in sterile water for injection 10 mL 1 gram SIVP syringe 09-28 13:43: 00 Yes PRN, Starting Marian 09/29/19 at 0843, Until Discontinu ed, SHEREEN, Intra-op [facility] balanced salt soln no.2 irrig. (BSS) ophthalmic solution 09-28 13:43: 00 Yes PRN, Starting Marian 09/29/19 at 0843, Until Discontinu ed, Routine, Intra-op [facility] eye block syringe 11 mL 09-28 13:36: 00 Yes PRN, Starting Marian 09/29/19 at 0836, Until Discontinu ed, Intra-op [facility] tetracaine (PONTOCAINE ) 0.5 % ophthalmic drops 09-28 13:36: 00 Yes PRN, Starting Marian 09/29/19 at 0836, Until Discontinu ed, Routine, Intra-op [facility] mydriatic #5 ophthalmic solution 0.5 mL syringe 09-28 12:00: 00 09-28 12:02 :00 No .5mL 0.5 mL, Left Eye, ONCE, 1 dose, Marian 09/29/19 at 0700, Routine, DSU Pre-op [facility] lactated ringers IV infusion 1,000 mL 09-28 11:45: 00 09-28 11:50 :00 No 1000mL at 20 mL/hr, 1,000 mL, IV Infusion, ONCE, 1 dose, Marian 09/29/19 at 0645, Routine, DSU Pre-op [facility] levoFLOXaci n 250 mg tablet 09-28 09:25: 05 Yes 500mg Take 500 mg by mouth every 24 (twenty-fo ur) hours. [facility] levoFLOXaci n 250 mg tablet 2020-0 4-20 18:47: 44 Yes 500mg Take 500 mg by mouth every 24 (twenty- ur) hours. [facility] amLODIPine 2.5 mg tablet 09-25 18:47: 44 Yes 2.5mg Take 2.5 mg by mouth daily. [facility] losartan 50 mg tablet 08-10 16:53: 45 Yes 25mg Take 25 mg by mouth daily. [facility] aspirin 325 mg tablet 08-10 16:53: 45 Yes 325mg Take 325 mg by mouth daily. [facility] DOCOSAHEXAN OIC ACID/EPA (FISH OIL ORAL) 08-10 16:53: 45 Yes Take by mouth. [facility] vitamin C with kirti hips (VITAMIN C) 1,000 mg tablet 08-10 16:53: 45 Yes 1000mg Take 1,000 mg by mouth daily. [facility] rosuvastati n (CRESTOR) 20 mg tablet 08-10 16:53: 45 Yes 20mg Take 20 mg by mouth at bedtime. [facility] levoFLOXaci n 250 mg tablet 08-10 16:53: 45 Yes 500mg Take 500 mg by mouth every 24 (- ur) hours. [facility] amLODIPine 2.5 mg tablet 08-10 16:53: 45 Yes 2.5mg Take 2.5 mg by mouth daily. [facility] lactated ringers IV infusion 1,000 mL 08-10 16:30: 00 Yes 1000mL at 75 mL/hr, 1,000 mL, IV Infusion, CONTINUOUS , Starting Marian 08/11/19 at 1030, Until Discontinu ed, Routine, PACU [facility] FENTanyl PF (SUBLIMAZE (PF)) injection 25 mcg 08-10 16:24: 13 Yes 25ug 25 mcg, Slow IV Push, Q5MIN PRN, 4 doses, Starting Marian 08/11/19 at 1024, Until Discontinu ed, Routine, Pain (scale 4-6), PACU [facility] ondansetron (ZOFRAN (PF)) injection 4 mg 08-10 16:24: 13 Yes 4mg 4 mg, Slow IV Push, PRN, 1 dose, Starting Marian 08/11/19 at 1024, Until Discontinu ed, Routine, Nausea and Vomiting (N/V), PACU [facility] sodium chloride (NS) injection 08-10 16:14: 00 Yes PRN, Starting Marian 320 at 1014, Until Discontinu ed, Routine, Intra-op [facility] neomycin-po lymyxin-dex amethasone (MAXITROL) 3.5 mg/g-10,000 unit/g-0.1 % ophthalmic ointment 08-10 16:14: 00 Yes PRN, Starting Marian 3 at 1014, Until Discontinu ed, Routine, Intra-op [facility] dexamethaso ne (DECADRON PHOSPHATE) injection 08-10 16:12: 00 Yes PRN, Starting Marian 08/11/19 at 1012, Until Discontinu ed, Routine, Intra-op [facility] ceFAZolin (ANCEF) injection 08-10 16:12: 00 Yes PRN, Starting Marian 3 at 1012, Until Discontinu ed, SHEREEN, Intra-op [facility] gentamicin injection 08-10 16:11: 00 Yes PRN, Starting Marian 3 at 1011, Until Discontinu ed, SHEREEN, Intra-op [facility] DUOVISC (DUOVISC VISCO ELASTIC) 3 %-4 %(0.5 mL) 1 % (0.55 mL) intraocular injection 08-10 16:10: 00 Yes PRN, Starting Marian 320 at 1010, Until Discontinu ed, Routine, Intra-op [facility] balanced salt irrig soln comb1 (BSS PLUS) ophthalmic solution 500 mL bag 08-10 16:07: 00 Yes PRN, Starting Marian 3 at 1007, Until Discontinu ed, Routine, Intra-op [facility] EPINEPHrine (PF) 1:1,000 (1 mg/mL) (ADRENALIN (PF)) injection 08-10 16:02: 00 Yes PRN, Starting Marian 08/11/19 at 1002, Until Discontinu ed, Routine, Intra-op [facility] water for irrigation irrigation solution 08-10 15:59: 00 Yes PRN, Starting Marian 20 at 0959, Until Discontinu ed, Routine, Intra-op [facility] tetracaine (PONTOCAINE ) 0.5 % ophthalmic drops 08-10 15:58: 00 Yes PRN, Starting Marian 320 at 0958, Until Discontinu ed, Routine, [facility] (XYLOCAINE W/EPINEPHRI NE) 2 %-1:200,000 injection 08-10 15:55: 00 Yes PRN, Starting Marian 3 at 0955, Until Discontinu ed, Routine, Intra-op Univers ity [facility] bupivacaine (preserv free) (SENSORCAIN E MPF) 0.75 % (7.5 mg/mL) injection 08-10 15:55: 00 Yes PRN, Starting Marian 320 at 0955, Until Discontinu ed, Routine, Intra-op Univers [facility] lactated ringers IV infusion 1,000 mL 08-10 14:15: 00 08-10 14:18 :00 No 1000mL at 20 mL/hr, 1,000 mL, IV Infusion, ONCE, 1 dose, Marian 08/11/19 at 0815, Routine, DSU Pre-op Univers [facility] mydriatic #5 ophthalmic solution 0.5 mL syringe 08-10 14:15: 00 08-10 14:18 :00 No .5mL 0.5 mL, Right Eye, ONCE, 1 dose, Marian 08/11/19 at 0815, Routine Univers [facility] losartan 50 mg tablet 07-09 19:06: 16 Yes 50mg Take 50 mg by mouth daily. [facility] aspirin 325 mg tablet 07-09 19:06: 16 Yes 325mg Take 325 mg by mouth daily. [facility] DOCOSAHEXAN OIC ACID/EPA (FISH OIL ORAL) 07-09 19:06: 16 Yes Take by mouth. [facility] levoFLOXaci n 250 mg tablet 07-09 19:06: 16 Yes 500mg Take 500 mg by mouth every 24 (twenty-fo ur) hours. [facility] vitamin C with kirti hips (VITAMIN C) 1,000 mg tablet 07-09 19:06: 16 Yes 1000mg Take 1,000 mg by mouth daily. [facility] amLODIPine 2.5 mg tablet 07-09 19:06: 16 Yes 2.5mg Take 2.5 mg by mouth daily. [facility] rosuvastati n (CRESTOR) 20 mg tablet 07-09 19:06: 16 Yes 20mg Take 20 mg by mouth at bedtime. [facility] losartan 50 mg oral tablet 2017-06 13:34: 05 Yes 100 mg = 2 tab, PO, Daily, # 180 tab, 2 Refill(s), Pharmacy: [facility] [id number] Juan Miguel Butler Crestor 20 MG Crestor 20 MG 02-24 00:00: 00 No 1{table t} QD Crestor 20 MG Aspirin 325 MG Aspirin 325 MG 02-24 00:00: 00 No 1{table t} QD Aspirin 325 MG losartan 20 mg losartan 20 mg 02-24 00:00: 00 No losartan 20 mg Omeprazole 20 MG Omeprazole 20 MG 02-24 00:00: 00 No 1{capsu le} QD Omeprazole 20 MG Bupivicaine [place] Bupivicaine [place] 02-24 00:00: 00 No [facility] Depo Medrol (40mg) Depo Medrol (40mg) 02-24 00:00: 00 No 40mg [facility] Metamucil 10-26 12:56: 00 Yes 1.7 gm =, PO, Bedtime Juan Miguel Butler omeprazole (PRILOSEC) 20 mg capsule 07-04 00:00: 00 Yes [facility] Sodium Chloride 0.154 MEQ/ML Injectable Solution 10-09 15:06: 00 No 1,000 mL, Rate: 25 ml/hr, Infuse over: 40 hr, Route: IV, Dosing Weight 75 kg, Total Volume: 1,000, Start date: 10/09/14 10:06:00, Duration: 30 day, Stop date: 11/08/14 10:05:00 Juan Miguel Butler Tylenol 10-06 19:58: 00 Yes PO, 0 Refill(s) Juan Miguel Butler alprazolam 0.25 mg tablet alprazolam 0.25 mg tablet No alprazolam 0.25 mg tablet [facility] fluticasone propionate 50 mcg/actuati on nasal spray,suspe nsion [place] 1 spray twice a day by intranasal route for 30 days. fluticasone propionate 50 mcg/actuati on nasal spray,suspe nsion [place] 1 spray twice a day by intranasal route for 30 days. No fluticason e propionate 50 mcg/actuat ion nasal spray,susp ension [place] 1 spray twice a day by intranasal route for 30 days. [facility] Fluzone High-Dose 2018-20 (PF) 180 mcg/0.5 mL intramuscul ar syringe Fluzone High-Dose 2018-20 (PF) 180 mcg/0.5 mL intramuscul ar syringe No Fluzone High-Dose (PF) 180 mcg/0.5 mL intramuscu lar syringe [facility] hydrochloro thiazide 25 mg tablet hydrochloro thiazide 25 mg tablet No hydrochlor othiazide 25 mg tablet [facility] Immunizations Ordered Immunization Name Filled Immunization Name Date Status Comments Source Hx influenza vaccine-unspecified< sup>1</sup> 2012-03-01 12:06:40 Completed [facility] Vital Signs Vital Name Observation Time Observation Value Comments S juju Systolic blood pressure 2024-12-30 09:40:00 178 mm[Hg] [facility] Diastolic blood pressure 2024-12-30 09:40:00 80 mm[Hg] [facility] Heart rate 2024-12-30 09:40:00 63 /min [facility] Body height 2024-12-30 09:40:00 170.2 cm Ashkan Butler Epic Body weight 2024-12-30 09:40:00 75.841 kg Ashkan Butler Epic BMI 2024-12-30 09:40:00 26.19 kg/m2 Ashkan Butler Epic Systolic blood pressure 2024-12-30 09:40:00 178 mm[Hg] [facility] Diastolic blood pressure 2024-12-30 09:40:00 80 mm[Hg] [facility] Heart rate 2024-12-30 09:40:00 63 /min Jeffrey Butler Epic Body height 2024-12-30 09:40:00 170.2 cm Ashkan rachel Butler Epic Body weight 2024-12-30 09:40:00 75.841 kg Ashkan Butler Epic BMI 2024-12-30 09:40:00 26.19 kg/m2 Ashkan Bakerann [facility] height 2021-08-21 08:45:00 68 [in_i] Commo n [facility] weight 2021-08-21 08:45:00 170.4 [lb_av] Co mmon [facility] temperature 2021-08-21 08:45:00 98.4 [degF] Com mon [facility] bmi 2021-08-21 08:45:00 25.91 kg/m2 Comm on [facility] oximetry 2021-08-21 08:45:00 99 % Commo n [facility] respiratory rate 2021-08-21 08:45:00 16 /min Common [facility] blood pressure systolic 2021-08-21 08:45:00 184 mm[Hg] Common [facility] blood pressure diastolic 2021-08-21 08:45:00 79 mm[Hg] Common [facility] Systolic blood pressure 2020-06-15 14:02:00 147 mm[Hg] [facility] Diastolic blood pressure 2020-06-15 14:02:00 74 mm[Hg] [facility] Heart rate 2020-06-15 14:02:00 68 /min [facility] Body height 2020-06-15 13:59:00 172.7 cm [facility] Body weight 2020-06-15 13:59:00 74.844 kg [facility] BMI 2020-06-15 13:59:00 25.09 kg/m2 [facility] Systolic blood pressure 2020-06-15 14:02:00 147 mm[Hg] [facility] Diastolic blood pressure 2020-06-15 14:02:00 74 mm[Hg] [facility] Heart rate 2020-06-15 14:02:00 68 /min [facility] Body height 2020-06-15 13:59:00 172.7 cm [facility] Body weight 2020-06-15 13:59:00 74.844 kg Univ [facility] BMI 2020-06-15 13:59:00 25.09 kg/m2 Univ [facility] Systolic blood pressure 2020-02-27 18:51:00 134 mm[Hg] [facility] Diastolic blood pressure 2020-02-27 18:51:00 76 mm[Hg] [facility] Respiratory rate 2020-02-27 18:51:00 18 /min [facility] Body weight 2020-02-27 18:51:00 74.844 kg Univ [facility] BMI 2020-02-27 18:51:00 25.09 kg/m2 Univ [facility] Systolic blood pressure 2020-02-17 13:27:00 146 mm[Hg] [facility] Diastolic blood pressure 2020-02-17 13:27:00 78 mm[Hg] [facility] Heart rate 2020-02-17 13:25:00 69 /min [facility] Body weight 2020-02-17 13:25:00 74.844 kg [facility] BMI 2020-02-17 13:25:00 25.09 kg/m2 Univ [facility] Systolic blood pressure 2020-01-26 19:28:00 157 mm[Hg] [facility] Diastolic blood pressure 2020-01-26 19:28:00 53 mm[Hg] [facility] Heart rate 2020-01-26 19:28:00 66 /min Unive [facility] Body height 2020-01-26 19:28:00 172.7 cm Univ [facility] Body weight 2020-01-26 19:28:00 74.844 kg [facility] BMI 2020-01-26 19:28:00 25.09 kg/m2 Univ [facility] Systolic blood pressure 2019-12-07 18:14:00 144 mm[Hg] [facility] Diastolic blood pressure 2019-12-07 18:14:00 71 mm[Hg] [facility] Heart rate 2019-12-07 18:14:00 71 /min Unive [facility] Body height 2019-12-07 18:14:00 172.7 cm Univ [facility] Body weight 2019-12-07 18:14:00 74.844 kg [facility] BMI 2019-12-07 18:14:00 25.09 kg/m2 [facility] Systolic blood pressure 2019-09-29 14:07:00 167 mm[Hg] [facility] Diastolic blood pressure 2019-09-29 14:07:00 73 mm[Hg] [facility] Heart rate 2019-09-29 14:07:00 54 /min [facility] Respiratory rate 2019-09-29 14:07:00 16 /min [facility] Oxygen saturation in Arterial blood by Pulse oximetry 2019-09-29 14:07:00 96 /min [facility] Body temperature 2019-09-29 14:00:00 36.44 Lvi [facility] Body height 2019-09-26 23:44:00 172.7 cm Univ [facility] Body weight 2019-09-26 23:44:00 74.8 kg [facility] BMI 2019-09-26 23:44:00 25.08 kg/m2 [facility] Body temperature 2019-09-28 15:44:00 36.72 Liv [facility] Systolic blood pressure 2019-08-11 16:33:00 147 mm[Hg] [facility] Diastolic blood pressure 2019-08-11 16:33:00 71 mm[Hg] [facility] Heart rate 2019-08-11 16:33:00 61 /min [facility] Body temperature 2019-08-11 16:33:00 36.67 Liv [facility] Respiratory rate 2019-08-11 16:33:00 18 /min [facility] Oxygen saturation in Arterial blood by Pulse oximetry 2019-08-11 16:33:00 96 /min [facility] Body height 2019-08-09 20:37:00 172.7 cm [facility] Body weight 2019-08-09 20:37:00 74.8 kg [facility] BMI 2019-08-09 20:37:00 25.08 kg/m2 [facility] Systolic (mm Hg) 2020-08-17 15:45:00 [facility] Diastolic (mm Hg) 2020-08-17 15:45:00 [facility] Heart Rate 2020-08-17 15:45:00 [facility] [place] Respitory Rate 2020-08-17 15:45:00 [facility] Height 2020-08-17 15:45:00 165.1 cm [facility] Weight 2020-08-17 15:45:00 [facility] BMI Calculated 2020-08-17 15:45:00 [facility] Systolic (mm Hg) 2020-05-25 15:52:00 [facility] Diastolic (mm Hg) 2020-05-25 15:52:00 [facility] Heart Rate 2020-05-25 15:52:00 [facility] Respitory Rate 2020-05-25 15:52:00 [facility] Height 2020-05-25 15:52:00 167.64 cm [facility] Weight 2020-05-25 15:52:00 [facility] BMI Calculated 2020-05-25 15:52:00 [facility] Systolic (mm Hg) 2020-04-13 14:21:00 [facility] Diastolic (mm Hg) 2020-04-13 14:21:00 [facility] Heart Rate 2020-04-13 14:21:00 [facility] Respitory Rate 2020-04-13 14:21:00 [facility] Height 2020-04-13 14:21:00 167.64 cm [facility] Weight 2020-04-13 14:21:00 [facility] BMI Calculated 2020-04-13 14:21:00 [facility] Systolic (mm Hg) 2020-03-30 21:02:00 [facility] Diastolic (mm Hg) 2020-03-30 21:02:00 [facility] Heart Rate 2020-03-30 21:02:00 [facility] [place] Respitory Rate 2020-03-30 21:02:00 [facility] Height 2020-03-30 21:02:00 165.1 cm [facility] Weight 2020-03-30 21:02:00 [facility] [place] BMI Calculated 2020-03-30 21:02:00 [facility] Diastolic (mm Hg) 2020-03-14 20:06:00 [facility] Heart Rate 2020-03-14 20:06:00 [facility] Respitory Rate 2020-03-14 20:06:00 [facility] Height 2020-03-14 20:06:00 165.1 cm [facility] Weight 2020-03-14 20:06:00 [facility] BMI Calculated 2020-03-14 20:06:00 [facility] Systolic (mm Hg) 2020-03-14 20:06:00 [facility] BMI Calculated 2018-03-25 12:56:00 [facility] Weight 2018-03-25 12:56:00 [facility] Height 2018-03-25 12:56:00 172.72 cm [facility] Temperature Oral (F) 2018-03-25 12:56:00 97.5 F [facility] Systolic (mm Hg) 2018-03-25 12:56:00 [facility] Diastolic (mm Hg) 2018-03-25 12:56:00 [facility] Heart Rate 2018-03-25 12:56:00 [facility] Height 2017-10-26 12:52:00 172.72 cm [facility] BMI Calculated 2017-10-26 12:52:00 [facility] Weight 2017-10-26 12:52:00 [facility] Heart Rate 2017-10-26 12:52:00 [facility] Temperature Oral (F) 2017-10-26 12:52:00 97.3 F [facility] Systolic (mm Hg) 2017-10-26 12:52:00 [facility] Diastolic (mm Hg) 2017-10-26 12:52:00 [facility] BMI Calculated 2017-05-04 14:03:00 [facility] Weight 2017-05-04 14:03:00 [facility] Height 2017-05-04 14:03:00 152.4 cm [facility] Heart Rate 2017-05-04 14:03:00 [facility] Temperature Oral (F) 2017-05-04 14:03:00 97.6 F [facility] Systolic (mm Hg) 2017-05-04 14:03:00 [facility] Diastolic (mm Hg) 2017-05-04 14:03:00 [facility] Systolic (mm Hg) 2014-10-09 18:00:00 [facility] Respitory Rate 2014-10-09 18:00:00 [facility] Diastolic (mm Hg) 2014-10-09 18:00:00 [facility] Respitory Rate 2014-10-09 17:40:00 [facility] Systolic (mm Hg) 2014-10-09 17:40:00 [facility] Diastolic (mm Hg) 2014-10-09 17:40:00 [facility] Systolic (mm Hg) 2014-10-09 17:27:00 [facility] Diastolic (mm Hg) 2014-10-09 17:27:00 [facility] Respitory Rate 2014-10-09 17:27:00 [facility] BMI Calculated 2014-10-06 19:50:00 [facility] Weight 2014-10-06 19:50:00 [facility] Height 2014-10-06 19:50:00 172.72 cm [facility] Procedures Procedure Date / Time Performed Performing Clinician Source ECG 12-LEAD 2024-12-30 09:26:50 Sandhya Hansen [facility] Transthoracic echo (TTE) complete 2024-12-30 00:00:00 [facility] Stress test with myocardial perfusion 2024-12-30 00:00:00 [facility] US carotid artery doppler bilateral 2024-12-30 00:00:00 [facility] REFERRAL- REQUEST/RESPONSE 2021-07-05 06:01:00 D octor Unassigned, [place] [facility] REFERRAL- REQUEST/RESPONSE 2021-06-19 06:01:00 D octor Unassigned, [place] [facility] XR SPINE THORACIC 2 VW 2020-02-17 13:53:16 Harman Reese [facility] XR LUMBAR SPINE 2 VW 2020-02-17 13:53:14 Romi Reese [facility] NON [facility] FAC[facility] DOCUMENTATION 2020-02-08 05:01:00 Doctor Unassigned, [place] [facility] EKG-12 LEAD 2020-01-30 14:27:17 Doctor Unass igned, [place] [facility] XR CHEST 2 VW 2020-01-30 14:13:12 Sergio [facility] CONSENT/REFUSAL FOR DIAGNOSIS AND TREATMENT 2020-01-30 13:46:55 Doctor Unassigned, [place] [facility] DSU PRE-OP 2020-01-26 05:01:00 Doctor Unass igned, [place] [facility] REFERRAL- REQUEST/RESPONSE 2020-01-13 05:01:00 D octor Unassigned, [place] [facility] REFERRAL- REQUEST/RESPONSE 2019-12-07 05:01:00 D octor Unassigned, [place] [facility] ASSIGNMENT OF BENEFITS 2019-09-28 16:00:18 Docto r Unassigned, [place] [facility] DAY SURGERY - ADC 2019-08-11 06:01:00 Doctor Mirta ssigned, [place] [facility] NO SHOW OR MISSED APPOINTMENT POLICY ACKNOWLEDGEMENT 2019-08-04 22:08:18 Doctor Unassigned, [place] [facility] PATIENT FINANCIAL POLICY 2019-08-04 22:07:51 Doctor Unassigned, [place] [facility] NOTICE OF BILLING PRACTICES FOR MEDICARE PATIENTS 2019-08-04 22:07:18 Doctor Unassigned, [place] [facility] NOTICE OF PRIVACY PRACTICES 2019-08-04 22:06:43 Doctor Unassigned, [place] [facility] CONSENT/REFUSAL FOR DIAGNOSIS AND TREATMENT 2019-08-04 22:06:13 Doctor Unassigned, [place] [facility] ASSIGNMENT OF BENEFITS 2019-08-04 22:05:49 Docto r Unassigned, [place] [facility] CONSENT/REFUSAL FOR DIAGNOSIS AND TREATMENT 2019-08-04 22:05:23 Doctor Unassigned, [place] [facility] ASSIGNMENT OF BENEFITS 2019-08-04 22:04:21 Docto r Unassigned, [place] [facility] PHYSICIAN ORDERS 2019-08-04 06:01:00 Doctor Unas signed, [place] [facility] REFERRAL- REQUEST/RESPONSE 2019-06-14 06:01:00 D octor Unassigned, [place] [facility] REFERRAL- REQUEST/RESPONSE 2019-06-06 06:01:00 D octor Unassigned, [place] [facility] TYMPANOMETRY 2019-03-25 00:00:00 [facility] TYMPANOMETRY 2019-03-07 00:00:00 [facility] TYMPANOMETRY 2019-02-10 00:00:00 [facility] unlisted imaging order 2019-02-10 00:00:00 [facility] Microwave therapy to prostate 2016-05-22 06:00:00 [facility] Appendectomy [facility] CABG - Coronary artery bypass graft [facility] Laparoscopic repair of inguinal hernia [facility] ECG 12 lead [facility] Epic Operation [facility] Rotator cuff repair [facility] Plan of Care Planned Activity Planned Date Details Comments Source Instructions [facility] Encounters Start Date/Time End Date/Time Encounter Type Admission Type Attending Clinicians Care Facility Care Department Encounter ID Source 2021-08-02 07:05:01 Outpatient ANGELICA JOAQUIN [facility] [id number] [facility] 2021-07-17 16:19:00 Outpatient ANGELICA JOAQUIN [facility] [id number] [facility] 2021-07-03 14:29:41 Outpatient [facility] [id number] [facility] 2021-04-04 18:28:55 Outpatient TRINI WALTON [facility] [id number] [facility] 2021-04-04 10:38:53 Outpatient TRINI WALTON [facility] [id number] [facility] 2024-12-30 09:30:00 2024-12-30 10:08:34 Consult [id number], Phy Sl Ecg Sandhya Hansen [place] [address] [id number] [id number] [facility] [place] [facility] 2024-12-30 09:23:24 2024-12-30 10:08:34 Outpatient SANDHYA HANSEN [facility] [id number] [facility] 2024-06-21 09:35:00 2024-06-21 09:35:00 Outpatient Alessio Alvarenga [facility] [id number] [facility] 2024-04-25 10:13:00 2024-04-25 10:13:00 Outpatient Alessio Alvarenga [facility] [id number] [facility] 2021-08-21 00:00:00 2021-08-21 00:00:00 [id number] 2021-07-17 00:00:00 2021-07-17 00:00:00 OFFICE VISIT [facility] [id number] 2021-07-12 00:00:00 2021-07-12 00:00:00 Letter (Out) Angelica Krishnamurthy [facility] [id number] 350.1.13.10 4.2.7.2.686 [id number] [facility] 2021-07-05 00:00:00 2021-07-05 00:00:00 Orders Only Doctor Unassigned, [place] [facility] [id number] 350.1.13.10 4.2.7.2.686 [id number] [facility] 2021-06-19 00:00:00 2021-06-19 00:00:00 Orders Only Doctor Unassigned, [place] [facility] 1.2.840.114 350.1.13.10 4.2.7.2.686 [id number] [facility] 2020-12-19 14:30:00 2020-12-19 14:30:00 Ambulatory Pre-Reg nullFlavo r [facility] [id number] Juan Miguel Butler 2020-08-17 16:00:00 2020-08-18 05:59:59 Outpatient nullFlavo r [facility] [id number] Juan Miguel Butler 2020-06-15 07:45:06 2020-06-15 08:00:06 Office Visit Valatie [facility] [id number] 350.1.13.10 4.2.7.2.686 [id number] [facility] 2020-06-15 07:45:06 2020-06-15 08:00:06 Office Visit Mary Ann [facility] [id number] 350.1.13.10 4.2.7.2.686 [id number] 2020-06-15 08:00:00 2020-06-15 08:00:00 Outpatient R [facility] [id number] [facility] 2020-05-25 15:45:00 2020-05-26 05:59:59 Outpatient nullFlavo r [facility] [id number] Juan Miguel Butler 2020-04-13 14:15:00 2020-04-14 05:59:59 Outpatient nullFlavo r [facility] [id number] Juan Miguel Butler 2020-04-12 19:45:00 2020-04-12 19:45:00 Ambulatory Pre-Reg nullFlavo r [facility] [id number] Juan Miguel Butler 2020-04-03 16:45:00 2020-04-03 16:45:00 Ambulatory Pre-Reg nullFlavo r [facility] [id number] Juan Miguel Butler 2020-03-30 21:00:00 2020-03-31 04:59:59 Outpatient nullFlavo r [facility] [id number] Juan Miguel Butler 2020-03-14 20:15:00 2020-03-15 04:59:59 Outpatient nullFlavo r [facility] [id number] Juan Miguel Butler 2020-02-27 14:15:00 2020-02-27 14:15:00 Outpatient R SERGIO MILLER [facility] [id number] [facility] 2020-02-27 13:37:12 2020-02-27 14:06:43 Office Visit Sergio Miller [facility] [place] 1.2.840.114 350.1.13.10 4.2.7.2.686 [id number] [facility] 2020-02-22 13:15:00 2020-02-22 13:15:00 Outpatient R SERGIO MILLER [facility] [id number] [facility] 2020-02-17 08:53:15 2020-02-17 23:59:00 Hospital Encounter Mary Ann [facility] wal[facility] [place] 1.2.840.114 350.1.13.10 4.2.7.2.686 [id number] [facility] 2020-02-17 08:53:14 2020-02-17 23:59:00 Hospital Encounter Mary Ann [facility] [place] 1.2.840.114 350.1.13.10 4.2.7.2.686 [id number] [facility] 2020-02-17 08:30:00 2020-02-17 08:30:00 Outpatient R ROMI REESE [facility] [id number] [facility] 2020-02-17 08:11:49 2020-02-17 08:26:49 Office Visit Romi Reese [facility] [place] 1..114 350.1.13.10 4.2.7.2.686 [id number] [facility] 2020-02-08 13:27:00 2020-02-08 23:59:00 Hospital Encounter Sergio Miller [facility] 1..114 350.1.13.10 4.2.7.2.686 [id number] [facility] 2020-02-08 00:00:00 2020-02-08 00:00:00 Outpatient R SERGIO MILLER [facility] [id number] [facility] 2020-02-08 00:00:00 2020-02-08 00:00:00 Orders Only Doctor Unassigned, [place] [facility] 1..114 350.1.13.10 4.2.7.2.686 [id number] [facility] 2020-01-30 08:46:58 2020-01-30 23:59:00 Hospital Encounter Sergio Miller [facility] 1..114 350.1.13.10 4.2.7.2.686 [id number] [facility] 2020-01-30 08:41:22 2020-01-30 09:51:56 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, Adc Lab Main Sergio Miller [facility] 1.114 350.1.13.10 4.2.7.2.686 [id number] [facility] 2020-01-30 08:45:00 2020-01-30 08:45:00 Outpatient R SERGIO MILLER [facility] [id number] [facility] 2020-01-26 14:09:34 2020-01-26 15:50:04 Office Visit Sergio Miller [facility] 1.2.840.114 350.1.13.10 4.2.7.2.686 [id number] [facility] 2020-01-26 14:30:00 2020-01-26 14:30:00 Outpatient R SERGIO MILLER [facility] [id number] [facility] 2020-01-26 00:00:00 2020-01-26 00:00:00 Orders Only Doctor Unassigned, [place] [facility] 1.2840.114 350.1.13.10 4.2.7.2.686 [id number] [facility] 2020-01-13 13:15:00 2020-01-14 04:59:59 Outpatient nullFlavo r [facility] [place] [id number] Crissoria dara Butler 2020-01-13 00:00:00 2020-01-13 00:00:00 Orders Only Doctor Unassigned, [place] [facility] 1.2840.114 350.1.13.10 4.2.7.2.686 [id number] [facility] 2019-12-07 12:56:08 2019-12-07 13:30:44 Office Visit Sergio Miller [facility] Surgical [facility] waldo Castaneda 1.2840.114 350.1.13.10 4.2.7.2.686 [id number] [facility] 2019-12-07 13:15:00 2019-12-07 13:15:00 Outpatient R SERGIO MILLER [facility] [id number] [facility] 2019-12-07 00:00:00 2019-12-07 00:00:00 Orders Only Doctor Unassigned, [place] [facility] 1.2840.114 350.1.13.10 4.2.7.2.686 [id number] [facility] 2019-09-29 06:25:00 2019-09-29 09:15:00 Hospital Encounter Trini Moore [facility] Surgical [place] 1.2.840.114 350.1.13.10 4.2.7.2.686 [id number] [facility] 2019-09-28 11:04:24 2019-09-28 11:19:24 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, [facility] Lab Main Trini Moore [facility] Professio nal Building 1.2840.114 350.1.13.10 4.2.7.2.686 [id number] [facility] 2019-09-28 10:45:00 2019-09-28 10:45:00 Outpatient R [facility] [id number] [facility] 2019-09-28 09:49:02 2019-09-28 10:22:27 Nurse Visit Nurse, [facility] General Surgery Trini Moore [facility] Professio nal Building 1.2840.114 350.1.13.10 4.2.7.2.686 [id number] [facility] 2019-09-28 00:00:00 2019-09-28 00:00:00 Orders Only Doctor Unassigned, [place] [facility] 1.2840.114 350.1.13.10 4.2.7.2.686 [id number] [facility] 2019-09-28 00:00:00 2019-09-28 00:00:00 Telephone Trini Moore [facility] Professio nal Building 1.2840.114 350.1.13.10 4.2.7.2.686 [id number] [facility] 2019-08-11 08:04:00 2019-08-11 10:52:00 Hospital Encounter Trini Moore [facility] Surgical [place] 1.2840.114 350.1.13.10 4.2.7.2.686 [id number] [facility] 2019-08-11 00:00:00 2019-08-11 00:00:00 Orders Only Doctor Unassigned, [place] [facility] 1.2.840.114 350.1.13.10 4.2.7.2.686 [id number] [facility] 2019-08-04 16:12:43 2019-08-04 16:27:43 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, [facility]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 Trini Sheets [facility] 1.2.840.114 350.1.13.10 4.2.7.2.686 [id number] [facility] 2019-08-04 11:15:00 2019-08-04 11:15:00 Outpatient Lul MARY TRINI [facility] [id number] [facility] 2019-06-14 00:00:00 2019-06-14 00:00:00 Orders Only Doctor Unassigned, [place] [facility] 1.2.840.114 350.1.13.10 4.2.7.2.686 [id number] [facility] 2019-06-06 00:00:00 2019-06-06 00:00:00 Orders Only Doctor Unassigned, [place] [facility] 1.2.840.114 350.1.13.10 4.2.7.2.686 [id number] [facility] 2018-09-23 14:30:00 2018-09-23 14:30:00 Ambulatory Pre-Reg nullFlavo r [facility] [place] [id number] Juan Miguel Butler 2018-03-25 13:30:00 2018-03-26 04:59:59 Outpatient nullFlavo r [facility] [place] [id number] Juan Miguel Butler 2017-10-26 13:30:00 2017-10-27 04:59:59 Outpatient nullFlavo r [facility] [place] [id number] Memoria dara Luke 2017-05-04 14:30:00 2017-05-05 05:59:59 Outpatient nullFlavo r [facility] [place] [id number] Memodalis diamond Luke 2016-11-20 10:00:00 2016-11-20 10:00:00 Outpatient [facility] [id number] Memoria dara Luke 2016-11-07 15:30:00 2016-11-07 15:30:00 Outpatient MHIE [facility] [id number] Memoria dara Luke 2016-11-07 14:45:00 2016-11-07 14:45:00 Outpatient MHIE MHIE [id number] Memoria dara Luke 2016-11-07 14:45:00 2016-11-07 14:45:00 Outpatient MHIE [facility]IE [id number] Memoria dara Luke 2016-10-27 13:30:00 2016-10-27 13:30:00 Outpatient MHIE MHIE [id number] Memodalis diamond Luke 2016-10-27 10:00:00 2016-10-27 10:00:00 Outpatient MHIE MHIE [id number] Juan Miguel diamond Luke 2016-10-27 09:00:00 2016-10-27 09:00:00 Outpatient MHIE [facility]IE [id number] Juan Miguel diamond Luke 2016-10-21 10:45:00 2016-10-21 10:45:00 Outpatient MHIE [facility]IE [id number] Crissodalis dara Butler 2016-06-30 07:00:00 2016-06-30 07:00:00 Outpatient MHIE [facility]IE [id number] Juan Miguel dara Butler 2015-11-29 07:30:00 2015-11-29 07:30:00 Outpatient MHIE MHIE [id number] Crissodalis dara Butler 2015-11-07 08:00:00 2015-11-07 08:00:00 Outpatient MHIE [facility] [id number] Crissodalis dara Butler 2015-05-21 08:30:00 2015-05-21 08:30:00 Outpatient MHIE [facility]IE [id number] Crissodalis dara Butler 2015-05-21 08:00:00 2015-05-21 08:00:00 Outpatient MHIE [facility] [id number] Juan Miguel Butler 2014-10-09 14:53:00 2014-10-09 18:00:00 Bedded Outpatient nullFlavo r [facility] [id number] Juan Miguel Butler 2014-10-04 15:02:00 2014-10-05 04:59:00 Outpatient [facility] [id number] Results Test Description Test Time Test Comments Results Result Co mments Source CREATININE W ESTIMATED [id number] 11:06:00* Test Item Value Reference Range Interpretation Comme nts BEDSIDE CREATININE (test code = CREATBED) 0.9 MG/DL 0.6-1.3 N Mateo [id number] Performed by certified expander machine operator at [facility] CtrStewart [id number] Performed by certified expander machine operator at [facility] GLOMERULAR FILTRATION RATE POC (test code = GFRBED) 85 ML/MIN Mateo [id number] Mateo [id number] Performed by certified expander machine operator [facility] Glomerular Filtration Rate is a calculated parameterbased on serum Creatinine, patient age and sex. GFR valuesless than 60 mL/min/1.73 square meters are indicative ofChronic Kidney Disease. Values less than 15 mL/min/1.73square meters indicate Kidney failure. The calculation forGFR is based on the CKD-EPI (2020) calculation. This formulais race indifferent and is the recommended formula for GFRby the National Kidney Foundation for Adults.The GFR will not calculate if the sex is unknown or if thepatient's age is <18 years.Previously reported result: 85 ML/MINEdited by: INFCE on 04/25/24:07017506/25/23 1106: GFRBED previously reported as: 85 ML/MIN Mateo Crespo [id number] XR SPINE THORACIC 2 [id number] 14:17:57He has wires from previous thoracic spine surgery over most of the thoracic spine there are some signs of degeneration.[facility] LUMBAR [facility] 2 [id number] 14:17:16There are degenerative changes at L5-S1 with signs of lumbar straighteningUnMemorial Hermann Katy HospitalXR CHEST 2 [id number] 14:18:00 EXAM: XR CHEST 2 VW HISTORY: Right carpal tunnel syndrome COMPARISON: None. FINDINGS: A small amount of pleural fluid separates the visceral from parietal pleuraon the left laterally and inferiorly. Adhesions between the cardiac apexand the chest wall elevate the heart and give the impression of air beneathit. The heart and great vessels are normal and the lungs are otherwisewell-expanded and clear. ? [facility], Radiant Results Inft [...] vessels are normal and the lungs are otherwisewell-expanded and clear.[facility] 2019-03-07 14:40:58* Test Item Value Reference Range Interpretation Comme nts Right (test code = Right) Type C Peak is on Left Left (test code = Left) Type C Peak is on Left [facility]-51 09:31:46* Test Item Value Reference Range Interpretation Comme nts Right (test code = Right) Type A Normal Left (test code = Left) Type C Peak is on Left [facility] Notes Date/Time Note Provider Source Referral ID Status Reason Start Date Expiration Date Visits Requested Visits Authorized [id number] Authorized Perform Procedure 12/30/2024 12/25/2025 3 3 * Imaging (Routine) - Authorized Specialty Diagnoses / Procedures Referred By Contac t Referred To Contact Cardiology Diagnoses Atherosclerosis of [place] coronary artery of [place] heart without angina pectoris Mixed hyperlipidemia History of coronary artery bypass graft Cardiac risk counseling Exertional dyspnea Procedures Transthoracic echo (TTE) complete UT ECHO TTHRC R-T 2D W/WOM-MODE COMPL SPEC&COLR D UT ECHO TRANSTHORAC R-T 2D W/WO M-MODE REC COMP Sandhya Hansen MD [address] [address] Phone: tel: fax: [facility] [address] [place] [address] Phone: tel: fax: Referral ID Status Reason Start Date Expiration Date Visits Requested Visits Authorized [id number] Authorized Perform Procedure 12/30/2024 12/25/2025 1 1 [id number] 10:09:34* [facility]hitk1913-[facility]-11 10:09:34* Sandhya Hansen MD - 12/30/2024 9:30 AM CDT Images from the original note were not included. [facility] Cardiology Office Visit Note PATIENT: Ayaz Brunson Jr. MR NO: [id number] DATE OF : 1940 DATE OF VISIT: 12/30/2024 PCP: JIMBO Faustin Patient ID: 84 y.o. male who presents for KNIFE EDGER cardiac eval. Reason for Visit: [facility] care with new image processing engineer Prior History: History reviewed. No pertinent past medical history. HPI: I had the pleasure of seeing Ayaz Brunson Jr.. As you know, the patient is a 84 y.o. male who presents for current/ongoing management of KNIFE EDGER cardiac eval. The patient is an 84-year-old male with a history of CAD, status post-CABG in May 2005, presenting to establish [facility]. The patient reports occasional dyspnea but denies severe episodes requiring him to sit down. He also experiences persistent congestion over the past three months. He denies feeling generally unwell but notes intermittent tinnitus and can hear his heartbeat when lying down. He reports elevated blood pressure readings at home. He has been under the care of a image processing engineer, who informed him of aortic valve stenosis requiring replacement. However, he was told he does not currently meet the criteria for surgery. He mentions a small blockage in his neck. He currently takes aspirin 81 mg daily, losartan 100 mg daily, and Crestor 20 mg daily. Patient stays active with: BP at home: Prior heart testing: Heart catheterization / Angiogram and EKG If so, when?: Alcohol: Social History Substance and Sexual Activity Alcohol Use None Smoking: Tobacco Use: Low Risk (12/30/2024) Patient History Smoking Tobacco Use: Never Smokeless Tobacco Use: Never Passive Exposure: Not on file Drug: Social History Substance and Sexual Activity Drug Use Not on file Exercise: Physical Activity: Not on file Family History: Family History: Problem Relation Name Age of Onset Heart attack Mother Hypertension Mother Heart attack Father Heart attack Brother Occupation: Assessment/Plan: Problem List Items Addressed This VisitNone Visit Diagnoses Cardiac risk counseling - PrimaryRelevant Orders ECG 12 lead (Completed) Transthoracic echo (TTE) complete Stress test with myocardial perfusion US carotid artery doppler bilateral Atherosclerosis of [place] coronary artery of [place] heart without angina pectoris Relevant Orders Transthoracic echo (TTE) complete Stress test with myocardial perfusion US carotid artery doppler bilateral Mixed hyperlipidemia Relevant Orders Transthoracic echo (TTE) complete Stress test with myocardial perfusion US carotid artery doppler bilateral History of coronary artery bypass graft Relevant Orders Transthoracic echo (TTE) complete Stress test with myocardial perfusion US carotid artery doppler bilateral Exertional dyspnea Relevant Orders Transthoracic echo (TTE) complete Stress test with myocardial perfusion US carotid artery doppler bilateral Nonrheumatic aortic (valve) stenosis Overall, the patient is a very pleasant 84 y.o. male who presented today for KNIFE EDGER cardiac eval 1. Atherosclerosis of [place] coronary artery of [place] heart without angina pectoris: - Blood pressure measured at 150-170/70-80 mmHg, indicating persistently elevated readings in clinic. - Continued aspirin 81 mg daily and losartan 100 mg daily for secondary prevention and blood pressure management. - Initiated an additional antihypertensive agent to further optimize blood pressure control (name and dosage not specified). - Ordered nuclear treadmill stress test to assess coronary perfusion and guide ongoing management. - Advised follow-up after completion of diagnostic studies. 2. Mixed hyperlipidemia:- Patient remains on Crestor 20 mg daily. - No changes to lipid-lowering regimen indicated at this time. 3. History of coronary artery bypass graft:- Underwent CABG in May 2005. - See "Atherosclerosis of [place] coronary artery of [place] heart without angina pectoris" above for treatment/management plan. 4. Cardiac risk counseling:- Discussed the importance of blood pressure control, adherence to statin therapy, and regular cardiovascular follow-up. - Emphasized the progressive nature of aortic stenosis and the potential need for future interventions if indicated by test results. - Encouraged continued monitoring of symptoms and prompt reporting of any changes. 5. Exertional dyspnea:- Patient reports occasional shortness of breath without severe limitation. - Echocardiogram and nuclear treadmill stress test ordered to evaluate for underlying cardiac causes, including progression of valvular or coronary disease. 6. Nonrheumatic aortic (valve) stenosis:- Patient exhibits a systolic murmur consistent with aortic stenosis and experiences mild symptoms. - Echocardiogram ordered to assess current severity of valvular narrowing. - Nuclear treadmill stress test scheduled to evaluate functional status and guide potential intervention timing. - Explained that valve replacement is considered if stenosis is classified as severe or symptomatic based on established criteria. - Instructed patient to return for follow-up after the studies to determine need for further intervention. Follow up in: After testing The patient understands and agrees with the plan of care as outlined above and all questions have been answered to the patient’s apparent satisfaction. I have encouraged the patient to contact us should there be the onset of any new or additional symptoms. As always, thank you for allowing me to participate in the care of Ayaz Brunson Jr. and please do not hesitate to contact me with any questions or concerns. Additional education:None Total time on the date of encounter 63 minutes. Total time includes but not limited to preparation for visit, obtaining patient history and performing physical exam, counseling patient/family regarding diagnosis, risks and benefits of various treatment plans and expected outcomes, care coordination with additional healthcare providers, independent review of outside records/labs/diagnostic tests and clinical documentation. Please excuse any typographical errors, documentation prepared using electronic dictation software and may contain unintended word substitutions. E&M visit today is associated with current or anticipated ongoing medical care services related to a patient's single, serious condition or a complex condition. EKG: MEDICATIONS:Current Outpatient Medications Medication Sig Dispense Refill Ascorbic Acid (vitamin C) 1000 MG tablet Take 1 tablet by mouth 1 time each day. aspirin EC 81 MG EC tablet Take 1 tablet by mouth 1 time each day. cholecalciferol 50 MCG (2000 UT) tablet Take 1 tablet by mouth 1 time each day. Cyanocobalamin (Vitamin B-12) [address] 1 tablet under the tongue 1 time each day. losartan (Cozaar) 100 MG tablet Take 1 tablet by mouth 1 time each day. magnesium oxide (Mag-Ox) 400 MG tablet Take 1 tablet by mouth 1 time each day. Multiple Vitamin (multivitamin) tablet Take 1 tablet by mouth 1 time each day. [place]-3 Fatty Acids ([place] 3 Fish Oil) 1000 MG capsule Take 1 capsule by mouth 1 time each day. omeprazole (PriLOSEC) [address] capsule Take 1 capsule by mouth 1 time each day. rosuvastatin (Crestor) 20 MG tablet Take 1 tablet by mouth 1 time each day. nebivolol (Bystolic) 5 MG tablet Take 1 tablet by mouth 1 time each day. 90 tablet 1 No current facility-administered medications for this visit. PAST MEDICAL/SURGICAL/SOCIAL/FAMILY HISTORY: Has been reviewed and verified. REVIEW OF SYSTEMS:Focused cardiovascular review of systems is negative except for pertinent positives noted on Subjective section above. AllergiesAllergen Reactions Diphenhydramine Hives and Itching Contrast dye Hydrocodone Hives and Itching Other Reaction(s): Itching Data migrated from [employer] on 10/06/14. Originally documented asHYDROCODONE. itching Hydrocodone-Acetaminophen Other Reaction(s): Other (see comments) Iodinated Contrast Media Hives Iodine Hives Other Reaction(s): Anaphylaxis Data migrated from [employer] on 10/06/14. Originally documented as IODINE. Swollen all over Latex Other Reaction(s): Rashes Data migrated from [employer] on 08/08/15. Originally documented as LATEX TAPES. rash and itching FROM THICK PLASTIC DRESSINGS Lisinopril Other Reaction(s): Cough, NOS Other Hives and Itching Contrast dye Shellfish Allergy Hives Other Reaction(s): Itching, Shortness of breath Trazodone GI intolerance Has constipation with 50 mg dose , does not sleep with this dose regimen Hydrocortisone Itching Other Reaction(s): Other (see comments) There is no problem list on file for this patient. History reviewed. No pertinent past medical history.Social History Social History NarrativeNot on file Family History:Problem Relation Name Age of Onset Heart attack Mother Hypertension Mother Heart attack Father Heart attack Brother PHYSICAL EXAMINATION : :40 AM Vitals BMI 26.19 kg/m2 BSA (m2) 1.89 m2 Systolic 178 Diastolic 80 Heart Rate 63 Height (in) 1.702 m (5' 7") Weight (lb) 167.2 Body mass index is 26.19 kg/m?.Wt Readings from Last 3 Encounters: 12/30/24 75.8 kg (167 lb 3.2 oz) General: no acute distress, resting comfortablyHEENT: anicteric sclerae, oral mucosa moist Neck: supple, carotid upstrokes brisk, no mass Cardiovascular: Regular rate and rhythm, normal S1, normal S2, 4/6 systolc murmur. No edema. Lungs: Normal respiratory effort, lungs clear to auscultation bilaterally , Abdomen: soft, non-distended, no guarding, + BS Extremities: no clubbing, no edema Skin: warm, no jaundice, Psych: coherent, mood appropriate LABS : No results found for: "NA", "K", "BUN", "CALCIUM", "CL", "CO2", "CREATININE"No results found for: "WBC", "HGB", "HCT", "MCV", "PLT" No results found for: "CKTOTAL", "CKMB", "CKMBINDEX" No results found for: "INR", "PROTIME" No results found for: "CHOL", "HDL", "LDLCALC", "TRIG" No results found for: "ALT", "AST", "GGT", "ALKPHOS", "BILITOT" No results found for: "HGBA1C" No results found for: "TSH" No results found for: "BNP" DIAGNOSTICS:ECG: Encounter Date: 12/30/24 ECG 12 lead Result Value Ventricular Rate 62 Atrial Rate 62 UT Interval 160 QRS Duration 96 QT/QTc 418 QTc Calculation 424 P-[place] 83 R-[place] 73 T-[place] 64 Impression SINUS RHYTHM INCOMPLETE RIGHT BUNDLE BRANCH BLOCK SEPTAL INFARCTION AGE UNDETERMINED ABNORMAL ECG WHEN COMPARED WITH ECG OF 10-JUL-2011 22:55, NO SIGNIFICANT CHANGE WAS FOUND Echo: No echocardiogram results found for the past 12 months Stress Test:No results found for this or any previous visit from the past 365 days. The ASCVD Risk score (Tuyet ANDRE, et al., 2019) failed to calculate for the following reasons: The 2019 ASCVD risk score is only valid for ages 40 to 79 [facility]Lvqiceo8574-58-71 10:09:34Upcoming Encounters Pending Results Name Type Priority Associated Diagnoses Date /Time ECG 12 lead ECG Routine Cardiac risk counseling 12/30/2024 9:26 AM CDT Scheduled Orders Name Type Priority Associated Diagnoses Order Schedule Transthoracic echo (TTE) complete Echocardiography Routine Atherosclerosis of [place] coronary artery of [place] heart without angina pectoris Mixed hyperlipidemia History of coronary artery bypass graft Cardiac risk counseling Exertional dyspnea Expected: 12/30/2024 (Approximate), Expires: 12/30/2026 Stress test with myocardial perfusion Cardiac Nuclear Medicine Routine Atherosclerosis of [place] coronary artery of [place] heart without angina pectoris Mixed hyperlipidemia History of coronary artery bypass graft Cardiac risk counseling Exertional dyspnea Expected: 12/30/2024 (Approximate), Expires: 12/30/2026 carotid artery doppler bilateral Imaging Routine Atherosclerosis of [place] coronary artery of [place] heart without angina pectoris Mixed hyperlipidemia History of coronary artery bypass graft Cardiac risk counseling Exertional dyspnea Expected: 12/30/2024, Expires: 12/30/2025 Health Maintenance Due Date Last Done Comments Medicare Annual Wellness (AWV) 1940 Diabetes: Foot Exam 1950 Diabetes: Retinopathy Screening 1950 DTaP/Tdap/Td Vaccines (1 - Tdap) 1960 Respiratory Syncytial Virus (RSV) Adult Series (1 - 1-dose 75+ series) 2016 Zoster Vaccines (2 of 3) 07/09/2020 05/14/2020 Diabetes: Hemoglobin A1C 11/18/2024 08/18/2024 Influenza Vaccine (#1) 2025 , 03/06/2023, 03/10/2022, Additional history exists Diabetes: Urine Protein Screening 08/18/2025 08/18/2024 Lipid Panel 08/18/2025 08/18/2024 Pneumococcal Vaccine: 50+ Years Completed 04/13/2023 HIB Vaccines Aged Out No longer eligi ble based on patient's age to complete this topic HPV Vaccines Aged Out No longer eligi ble based on patient's age to complete this topic Hepatitis A Vaccines Aged Out No long er eligible based on patient's age to complete this topic Hepatitis B Vaccines Aged Out No long er eligible based on patient's age to complete this topic IPV Vaccines Aged Out No longer eligi ble based on patient's age to complete this topic Meningococcal Vaccine Aged Out No ana radha eligible based on patient's age to complete this topic Rotavirus Vaccines Aged Out No longer eligible based on patient's age to complete this topic [id number] 10:09:34 Diagnosis Cardiac risk counseling - Pr imary Atherosclerosis of [place] co ronary artery of [place] heart without angina pectoris Mixed hyperlipidemia History of coronary artery bypass graft Postsurgical aortocoronary bypass status Exertional dyspnea Other dyspnea and respiratory abnormality Nonrheumatic aortic (valve) stenosis [facility]Sxlwtgr5915-63-80 10:09:34 [place] [id number] 10:40:964355-7491 [place] [address] PATIENT NAME: AYAZ BRUNSON ADMIT DATE: 06/21/24 ACCOUNT NO: [id number] ROOM NO: AGE: 84 REPORT TYPE: eECHOCARDIOGRAM REPORT SEX: M ADMITTING PHYSICIAN: ATTENDING PHYSICIAN:Alessio Amato MD *[place] [address] Transthoracic Echocardiogram Patient: Ayaz Brunson Study Date: 06/21/2024 BP: URN: [id number] Location: : 1940 Age: 84 Gender: M Height: 68 in / 172.7 cm Weight: 169 lb / 76.7 kg BMI/BSA: 25.7 kg/m 2 / 1.93 m 2 *Ordering Physician: * Alessio Amato *Interpreting Physician: * Marshal Riggins MD *Fire Prevention Inspector: * Allie Garcia Indications: Aortic Stenosis. Study data: Transthoracic echocardiogram. Procedure: A transthoracic echocardiogram was performed. Images were obtained using a Tonx cardiac ultrasound machine. Image quality was adequate. Complete 2D, complete spectral Doppler, and color Doppler. Location: Echo laboratory. Patient status: Outpatient. Study status: Routine. Heart rate: 62 bpm. Findings Left ventricle: The cavity size is normal. Wall thickness is mildly increased. Systolic function is normal. The estimated ejection fraction is 65-69%. Wall motion is normal; there are no regional wall motion abnormalities. Left ventricular diastolic function parameters are PATIENT NAME: AYAZ BRUNSON indeterminate. Right ventricle: The cavity size is mildly dilated. Systolic function is reduced. Left atrium: The atrium is mildly dilated. Right atrium: The atrium is dilated. Aorta: Aortic root: The root is normal-sized. Ascending aorta: The vessel is normal-sized. Aortic valve: A bicuspid morphology cannot be excluded. The leaflets are mildly calcified. There is fusion of the right-left coronary commissure. The findings are consistent with moderate stenosis. There is mild to moderate regurgitation. Mitral valve: The leaflets are mildly thickened. There is no evidence of stenosis. There is trace regurgitation. Tricuspid valve: The valve is structurally normal. There is mild regurgitation. The estimated RVSP is 31 mmHg. Pulmonic valve: The valve is structurally normal. There is trivial regurgitation. Pericardium: There is no pericardial effusion. Systemic veins: Inferior vena cava: The IVC is normal-sized. Respirophasic diameter changes are in the normal range (>= 50%). Measurements Left ventricle Value Ref JERRY, LAX 4.7 cm 4.2 - 5.8 ESD, LAX 3.0 cm 2.5 - 4.0 FS, LAX 36 % 25 - 43 IVS, ED 1.2 cm 0.6 - 1.0 PW, ED 1.1 cm 0.6 - 1.0 IVS/PW, ED 1.08 --------- EF 66 % 52 - 72 E', lat johnnie, TDI 10.5 cm/sec >=10.0 E/e', lat johnnie, TDI 7 <=13 E', med johnnie, TDI 7.9 cm/sec >=7.0 E/e', med johnnie, TDI 9 --------- E', avg, TDI 9.2 cm/sec --------- E/e', avg, TDI 8 <=14 LVOT Value Ref Diam, S 2.09 cm --------- Area 3.4 cm 2 --------- Peak cristela, S 0.8 m/sec --------- Mean cristela, S 0.58 m/sec --------- VTI, S 19.3 cm --------- Peak grad, S 3 mm Hg --------- Mean grad, S 1 mm Hg --------- SV 66 ml --------- SV/bsa 34 ml/m 2 --------- Right ventricle Value Ref JERRY, LAX 3.6 cm --------- PATIENT NAME: AYAZ BRUNSON TAPSE, MM 1.4 cm >=1.7 Pressure, S 31 mm Hg --------- RVOT Value Ref Peak v, S 0.56 m/sec --------- Peak grad, S 1 mm Hg --------- Left atrium Value Ref AP dim, ES 4.7 cm 3.0 - 4.0 Vol/bsa, S 33 ml/m 2 16 - 34 Vol/bsa, ES, 1-p A4C 32 ml/m 2 12 - 37 Vol, ES, 2-p 70 ml --------- Vol/bsa, ES, 2-p 36 ml/m 2 16 - 34 Vol/bsa, ES, A/L 36 ml/m 2 16 - 34 AP dim, ES MM 4.5 cm 3.0 - 4.0 LA/Ao root ratio, MM 1.54 --------- Right atrium Value Ref Area, ES 17 cm 2 10 - 18 SI dim, ES, A4C 5.6 cm 3.4 - 5.3 Vol, ES, A/L 46 ml --------- Vol, ES, 1-p A4C 45 ml --------- Vol/bsa, ES, 1-p A4C 23 ml/m 2 11 - 39 Estimated RAP 5 mm Hg --------- Aortic valve Value Ref LAVERNE, plan 1.50 cm 2 --------- LAVERNE/bsa, plan 0.78 cm 2/m 2 --------- Leaflet sep, MM 1.69 cm --------- Peak v, S 3.6 m/sec --------- Mean v, S 2.67 m/sec --------- VTI, S 84.0 cm --------- Mean grad, S 31 mm Hg --------- Peak grad, S 51.7 mm Hg --------- LVOT/AV, VTI ratio 0.23 --------- LAVERNE, VTI 0.96 cm 2 --------- LVOT/AV, Vpeak ratio 0.22 --------- LAVERNE, Vmax 0.85 cm 2 --------- AR peak v 4.63 m/sec --------- AR decel 307.5 cm/s 2 --------- AR decel time 1504 ms --------- AR PHT 436 ms --------- AR peak grad 86 mm Hg --------- Mitral valve Value Ref Peak E 0.74 m/sec --------- Peak A 0.79 m/sec --------- Decel time 149 ms --------- PHT 42 ms --------- Peak grad, D 2.2 mm Hg --------- Peak E/A ratio 0.94 --------- MVA, PHT 5.3 cm 2 --------- Tricuspid valve Value Ref PATIENT NAME: AYAZ BRUNSON TR peak v 2.6 m/sec <=2.8 Peak RV-RA grad, S 26 mm Hg --------- Aortic root Value Ref Root diam, ED MM 2.9 cm --------- Ascending aorta Value Ref AAo AP diam, S 3.0 cm --------- Pulmonary artery Value Ref Pressure, S 27.8 mm Hg --------- Conclusions Summary: 1. Left ventricle: The cavity size is normal. Wall thickness is mildly increased. Systolic function is normal. The estimated ejection fraction is 65-69%. Wall motion is normal; there are no regional wall motion abnormalities. Left ventricular diastolic function parameters are indeterminate. 2. Right ventricle: The cavity size is mildly dilated. Systolic function is reduced. 3. Left atrium: The atrium is mildly dilated. 4. Right atrium: The atrium is dilated. 5. Aortic valve: A bicuspid morphology cannot be excluded. The leaflets are mildly calcified. There is fusion of the right-left coronary commissure. The findings are consistent with moderate stenosis. There is mild to moderate regurgitation. 6. Tricuspid valve: The estimated RVSP is 31 mmHg. Electronically signed by Marshal Riggins MD 06/22/2024 10:40 at 1040 PATIENT NAME: AYAZ BRUNSON [id number] [place] [id number] PATIENT NAME: AYAZ BRUNSON ADMIT DATE: 04/25/24 ACCOUNT NO: [id number] ROOM NO: AGE: 84 REPORT TYPE: PULMONARY FUNCTION REPORT SEX: M ADMITTING PHYSICIAN: ATTENDING PHYSICIAN:Alessio Amato MD STUDY DATE: 04/25/2024 FULL PULMONARY FUNCTION TEST INTERPRETATION SPIROMETRY: FVC is 127% of predicted. FEV1 is 101% of predicted. Ratio is 60. No response to bronchodilator. TLC 105. Diffusion capacity [TIME: 00:19]. FULL PULMONARY FUNCTION TEST: Mild COPD, stage I. Dictated By: Irma Clements MD Date Dictated: 05/11/2024 11:26:53 Date Transcribed: 05/11/2024 11:35:01 /AARON/MISAEL Receipt ID: [id number] Authenticated by IRMA CLEMENTS MD On 05/24/2024 11:13:38 AM at 1113 PATIENT NAME: AYAZ BRUNSON 14:44:28* EXAMINATION: Bilateral shoulders 2+ views HISTORY: Bilateral shoulder pain; history of left rotator cuff surgery FINDINGS: 2+ views of each shoulder are performed without comparison. There are no acute fractures or dislocations. The alignment is normal. There is an orthopedic anchor within the left humeral head consistent with prior left rotator cuff surgery. The bilateral glenohumeral and acromioclavicular joint spaces are normal. A small calcified granuloma is noted within the right lung apex. IMPRESSION: 1. Orthopedic anchor within the left humeral head consistent with prior left rotator cuff surgery. 2. No acute fracture or dislocation of either shoulder. [facility] [id number] 10:00:00* Barium Swallow/Video esophagram: CLINICAL HX: 787.20, 530.81 TECHNIQUE: Thin barium was utilized for prone and LPO images. Thick barium [...] tertiary esophageal contractions. Upright images with thick barium reveal no significant dysmotility. No mass lesions, stricture, or any significant mucosal abnormality of the esophagus is noted. Subsequently 2 separate swallows of a small piece of hamburger meat and barium were fluoroscopically followed through the length of esophagus. There is no severe delay in passage of the solid barium bolus from the pharynx to the esophagus and subsequently into the stomach. Scattered tertiary esophageal contractions are seen. Multiple episodes of retrograde motility in the esophagus are seen. Delayed image through the upper abdomen reveals prompt passage of barium from the stomach to the proximal small bowel. IMPRESSION: 1. Small hiatal hernia. 2. Severe esophageal dysmotility noted on the supine images as well as with the solid barium bolus with episodes of retrograde motility and scattered tertiary esophageal contractions. Fluoroscopy Time: 4.1 minutes SL: 16 Gabriel
[2025-01-16] MEDS ORDERED: ASPIRIN 81 MG CHEWABLE TABLET ONE (08:32)
[2025-01-16 09:15] LABS: Absolute Lymphocytes (CBC) 2.3 K/uL (0.7-4.9); Hematocrit 43.6 % (39.6-49.0); Hemoglobin 14.9 g/dL (13.6-17.9); MCH 31.4 pg (27.0-35.0); MCHC 34.2 g/dL (32.0-36.0); MCV 91.8 fL (80-100); MPV 8.9 fL (7.6-11.3); Nucleated RBC Absolute Count 0.0 (0-0); Nucleated Red Blood Cells % 0.0 % (0-0); RBC Red Blood Cell Count 4.75 M/uL (4.33-5.43); White Blood Count 12.40 thou/uL (4.3-10.9)
--- NOTE | 2025-01-16 09:15 | RAD REPORT ---
Procedure: Chest Single View HISTORY: Chest pain COMPARISON: 2023 FINDINGS: The lungs appear clear of acute infiltrate. Several calcified granulomas within the lungs. Moderately hyperaerated. No significant pleural effusion noted. The heart is mildly enlarged. Post surgical changes involve the chest.. IMPRESSION: No acute abnormality is displayed.
[2025-01-16 09:22] LABS: PT Prothrombin Time 13.0 SECONDS (10-13.0); Protime INR 1.16
[2025-01-16 09:41] LABS: ALT/SGPT 23.0 U/L (16-61); AST/SGOT 15.0 U/L (15-37); Albumin 3.9 g/dL (3.4-5.0); Albumin/Globulin Ratio 1.1 (1.1-1.8); Alkaline Phosphatase 110.0 U/L (45-117); Anion Gap 10.7 mEq/L (5.0-15.0); BUN Blood Urea Nitrogen 11.0 mg/dL (7-18); Bilirubin Indirect, Calculated 0.4 mg/dL (0.2-0.8); Globulin 3.7 g/dL (2.3-3.5); Glucose Level 99.0 mg/dL (74-106); Magnesium 2.0 mg/dL (1.6-2.4); NT PRO-BNP 366.0 pg/mL (<450); Potassium 3.7 mEq/L (3.5-5.1); Troponin High Sensitivity 6.1 pg/mL (<58.9)
--- NOTE | 2025-01-16 11:14 | ER ---
Nurse's Notes [facility] Name: Ayaz Brunson Jr Age: 84 yrs Sex: Male : 1940 Arrival Date: 01/16/2025 Time: 08:15 Bed 2 Private MD: Diagnosis: Chest pain, unspecified;Aortic stenosis Presentation: 01/16 08:23 Chief complaint: Patient states: CP, two episodes since 3 AM. Coronavirus screen: ll1 Client denies travel out of the [place] in the last 14 days. At this time, the client does not indicate any symptoms associated with coronavirus-19. Ebola Screen: Patient denies travel to an Ebola-affected area in the 21 days before illness onset. Initial Sepsis Screen: Does the patient meet any 2 criteria? No. Patient's initial sepsis screen is negative. Does the patient have a suspected source of infection? No. Patient's initial sepsis screen is negative. Risk Assessment: Do you want to hurt yourself or someone else? Patient reports no desire to harm self or others. Onset of symptoms was January 16, 2025. 08:23 Method Of Arrival: Ambulatory ll1 08:23 Acuity: DOUGLAS 3 ll1 Historical: - Allergies: 08:23 Iodinated Contrast Media - IV Dye; ll1 08:23 Latex; ll1 08:23 [place] (Itching); ll1 08:23 SHELLFISH; ll1 08:23 steroid shot (elevated BP); ll1 - PMHx: 08:23 Hypertensive disorder; Coronary atherosclerosis; ll1 - PSHx: 08:23 Coronary artery bypass graft; ll1 - Immunization history:: Adult Immunizations up to date. - Infectious Disease History:: Denies. - Social history:: Smoking status: Patient denies any tobacco usage or history of. Screenin:19 [facility] ED Fall Risk Assessment (Adult) History of falling in the last 3 months, db including since admission No falls in past 3 months (0 pts) Confusion or Disorientation No (0 pts) Intoxicated or Sedated No (0 pts) Impaired Gait No (0 pts) Mobility Assist Device Used No (0 pt) Altered Elimination No (0 pt) Score/Fall Risk Level 0 - 2 = Low Risk Oriented to surroundings, Maintained a safe environment. Abuse screen: Denies threats or abuse. Denies injuries from another. Nutritional screening: No deficits noted. Tuberculosis screening: No symptoms or risk factors identified. Assessment: 09:00 Reassessment: Patient appears in no apparent distress at this time. Patient and/or db family updated on plan of care and expected duration. Pain level reassessed. Patient is alert, oriented x 3, equal unlabored respirations, skin warm/dry/pink. 10:00 Reassessment: Patient appears in no apparent distress at this time. Patient and/or db family updated on plan of care and expected duration. Pain level reassessed. Patient is alert, oriented x 3, equal unlabored respirations, skin warm/dry/pink. 11:00 Reassessment: Patient appears in no apparent distress at this time. Patient and/or db family updated on plan of care and expected duration. Pain level reassessed. Patient is alert, oriented x 3, equal unlabored respirations, skin warm/dry/pink. 12:00 Reassessment: Patient appears in no apparent distress at this time. Patient and/or db family updated on plan of care and expected duration. Pain level reassessed. Patient is alert, oriented x 3, equal unlabored respirations, skin warm/dry/pink. 13:19 Reassessment: Patient appears in no apparent distress at this time. Patient and/or db family updated on plan of care and expected duration. Pain level reassessed. Patient is alert, oriented x 3, equal unlabored respirations, skin warm/dry/pink. General: Appears in no apparent distress. comfortable, Behavior is calm, cooperative. Pain: Complains of pain in chest Pain does not radiate. Pain began suddenly. Neuro: Level of Consciousness is awake, alert, obeys commands, Oriented to person, place, time, situation. Cardiovascular: Reports chest pain, Rhythm is sinus bradycardia. Vital Signs: 08:23 BP 140 / 112; Pulse 64; Resp 17; Temp 97; Pulse Ox 99% ; Weight 74.84 kg; ll1 09:00 BP 158 / 72; Pulse 57; Resp 16; Pulse Ox 99% ; db 10:30 BP 158 / 66; Pulse 49; Resp 16; Pulse Ox 99% on R/A; db 11:30 BP 161 / 68; Pulse 50; Resp 16; Pulse Ox 99% ; db 12:30 BP 170 / 63; Pulse 50; Resp 16; Pulse Ox 100% on R/A; db ED Course: 08:17 Patient arrived in ED. im 08:20 Hayden Vidal, RN is Primary Nurse. bp 08:23 Clarisa Valentin PA-C is PHCP. sb4 08:23 Angel Molina MD is Attending Physician. sb4 08:24 Triage completed. ll1 08:24 Arm band placed on Patient placed in an exam room, on a stretcher. ll1 08:51 XRAY Chest (1 view) In Process Unspecified. EDMS 09:00 EKG done. Inserted saline lock: 20 gauge in right antecubital area, using aseptic db technique. Blood collected. Flushed with 10 mL NS. 11:13 Wilver Olguin is Hospitalizing Provider. sb4 13:19 Patient has correct armband on for positive identification. Bed in low position. Call db light in reach. Side rails up X 1. Client placed on continuous cardiac and pulse oximetry monitoring. NIBP monitoring applied. electronic device monitor on. Pulse ox on. NIBP on. Warm blanket given. 13:53 No provider procedures requiring assistance completed. Patient admitted, IV remains in db place. Patient maintains SpO2 saturation greater than 95% on room air. 13:54 Provided Education on: ADMISSIOIN. db Administered Medications: 08:42 Drug: Aspirin PO 162 mg PO once Route: PO; db 12:00 Follow up: Response: No adverse reaction db Medication: 13:19 VIS not applicable for this client. db Outcome: 11:13 Decision to Hospitalize by Provider. sb4 13:39 Patient left the ED. bp 13:53 Admitted to Med/surg db 13:53 Condition: stable 13:53 Instructed on the need for admit, Signatures: Dispatcher [employer] EDNH Hayden Vidal, RN RN Ciara Mayer RN RN ll1 Smitha Eduardo RN RN db Clarisa Valentin PA-C PA-C sb4 Shi Evangelista im
--- NOTE | 2025-01-16 11:14 | EDPHYS ---
Physician Documentation [facility] Name: Ayaz Brunson Jr Age: 84 yrs Sex: Male : 1940 Arrival Date: 01/16/2025 Time: 08:15 Bed 2 Private MD: ED Physician Angel Molina HPI: 01/16 08:33 This 84 yrs old Male presents to ER via Ambulatory with complaints of Chest sb4 Pain. 08:33 Patient reports left-sided substernal chest pain that began this morning while taking sb4 out the trash. States the pain has improved some but is still there. Does report a cardiac history, had a bypass done 20 years ago. Takes baby aspirin, blood pressure medication and statin daily. Last had a cath about 10 months ago and was told he needed a TAVR. Historical: - Allergies: 08:23 Iodinated Contrast Media - IV Dye; ll1 08:23 Latex; ll1 08:23 [place] (Itching); ll1 08:23 SHELLFISH; ll1 08:23 steroid shot (elevated BP); ll1 - PMHx: 08:23 Hypertensive disorder; Coronary atherosclerosis; ll1 - PSHx: 08:23 Coronary artery bypass graft; ll1 - Immunization history:: Adult Immunizations up to date. - Infectious Disease History:: Denies. - Social history:: Smoking status: Patient denies any tobacco usage or history of. ROS: 08:33 Constitutional: Negative for fever, chills, and weight loss, sb4 08:33 Cardiovascular: Positive for chest pain, 08:33 All other systems are negative, Exam: 08:33 Head/Face: Normocephalic, atraumatic. Eyes: Extra-ocular motions intact. Periorbital sb4 areas with no swelling, redness, or edema. ENT: Mucous membranes moist. Cardiovascular: Regular rate and rhythm with a normal S1 and S2. Respiratory: No increased work of breathing, no retractions or nasal flaring. Abdomen/GI: Soft, non-tender, no distension. Skin: Warm, dry with normal turgor. Normal color with no rashes, no lesions, and no evidence of cellulitis. 08:33 Constitutional: The patient appears alert, awake, uncomfortable, Vital Signs: 08:23 BP 140 / 112; Pulse 64; Resp 17; Temp 97; Pulse Ox 99% ; Weight 74.84 kg; ll1 09:00 BP 158 / 72; Pulse 57; Resp 16; Pulse Ox 99% ; db 10:30 BP 158 / 66; Pulse 49; Resp 16; Pulse Ox 99% on R/A; db 11:30 BP 161 / 68; Pulse 50; Resp 16; Pulse Ox 99% ; db 12:30 BP 170 / 63; Pulse 50; Resp 16; Pulse Ox 100% on R/A; db MDM: 08:23 Medical Screening Exam initiated sb4 08:35 Differential diagnosis: abnormal EKG, acute myocardial infarction, coronary artery sb4 disease chest wall pain, congestive heart failure stable angina, unstable angina. The patient was given aspirin in the Emergency Department. 09:00 Independent interpretation of the following test(s) in the Emergency Department X-Ray: sb4 My interpretation is My interpretation of the chest x-ray images is sternotomy wires present, no cardiomegaly or effusions present. 09:05 External Records Reviewed: Outpatient record: cardiac catheterization from 04/07/2024 - sb Findings: 1. The coronary angiogram: a. Left main is normal and large. b. LAD; proximal segment is normal and then it becomes severely diseased at 90% to 95%. c. Left circumflex is normal and it is dominant. d. RCA; small, nondominant with diffuse 80% stenosis. 2. Bypass graft study: a. Widely patent VOGEL to LAD. b. Patent SVG to diagonal 1 branch. c. Patent SVG to RCA. 3. Right heart cath numbers: RA pressure was 3, RV pressure was 32/1, mean of 6, pulmonary artery pressure was 31/8, mean of 15. Pulmonary wedge was 8 and LVEDP was at 15 mmHg. 4. Cardiac output was 4.5 L/minute and aortic valve gradient was 26 mmHg and the aortic valve area was 0.97 sq cm. Conclusion: 1. Severe coronary artery disease with widely patent grafts as outlined above. 2. Severe low-flow low-gradient aortic valve stenosis. Recommendation: Proceed with TAVR. . 11:12 Data reviewed: vital signs, nurses notes, lab test result(s), EKG, radiologic studies, sb4 and as a result, I will admit patient. Management of patient was discussed with the following: [employer] Cutter: Dr. Amato, recommends admission, will plan for TAVR. Counseling: I had a detailed discussion with the patient and/or guardian regarding the historical points, exam findings, and any diagnostic results supporting the discharge/admit diagnosis, the presence of at least one elevated blood pressure reading (>120/80) during this emergency department visit, lab results, radiology results, the need for further work-up and treatment in the hospital. 01/16 08:23 Order name: Basic Metabolic Panel; Complete Time: 09:48 sb4 01/16 08:23 Order name: CBC with Diff; Complete Time: 09:26 sb4 01/16 08:23 Order name: LFT's; Complete Time: 09:48 sb4 01/16 08:23 Order name: Magnesium; Complete Time: 09:48 sb4 01/16 08:23 Order name: NT PRO-BNP; Complete Time: 09:48 sb4 01/16 08:23 Order name: PT-INR; Complete Time: 09:24 sb4 01/16 08:23 Order name: Troponin HS; Complete Time: 09:48 sb4 01/16 10:46 Order name: Troponin High Sensitivity; Complete Time: 11:49 sb4 01/16 12:37 Order name: Magnesium EDMS 01/16 12:37 Order name: Phosphorus EDMS 01/16 12:37 Order name: T4 Free EDMS 01/16 12:37 Order name: Thyroid Stimulating Hormone EDMS 01/16 12:37 Order name: Basic Metabolic Panel EDMS 01/16 12:37 Order name: Basic Metabolic Panel EDMS 01/16 12:37 Order name: CBC with Automated Diff EDMS 01/16 12:37 Order name: CBC with Automated Diff EDMS 01/16 08:23 Order name: XRAY Chest (1 view); Complete Time: 09:17 sb4 01/16 08:23 Order name: EKG; Complete Time: 08:24 sb4 01/16 08:23 Order name: Cardiac monitoring; Complete Time: 09:05 sb4 01/16 08:23 Order name: EKG - Nurse/Tech; Complete Time: 09:05 sb4 01/16 08:23 Order name: IV Saline Lock; Complete Time: 09:52 sb4 01/16 08:23 Order name: Labs collected and sent; Complete Time: 09:52 sb4 01/16 08:23 Order name: O2 Per Protocol; Complete Time: 09:05 sb4 01/16 08:23 Order name: O2 Sat Monitoring; Complete Time: 09:05 sb4 EC:02 Rate is 57 beats/min. Rhythm is regular, Normal Sinus Rhythm. NM interval is normal at sb4 148 msec. QRS interval is normal at 100 msec. QT interval is normal at 448 msec. No Q waves. T waves are Normal. No ST changes noted. Clinical impression: Sinus bradycardia. Interpreted by me. Reviewed by me. Administered Medications: 08:42 Drug: Aspirin PO 162 mg PO once Route: PO; db 12:00 Follow up: Response: No adverse reaction db Disposition Summary: 01/16/25 11:13 Hospitalization Ordered Notes: Hospitalization Status: Observation sb4 Provider: Wilver Olguin Location: Telemetry/MedSurg (observation) sb4 Condition: Fair sb4 Problem: an ongoing problem sb4 Symptoms: are unchanged sb4 Bed/Room Type: Standard sb4 Room Assignment: 222(01/16/25 12:37) bd Diagnosis - Chest pain, unspecified sb4 - Aortic stenosis sb4 Forms: - Medication Reconciliation Form sb4 - SBAR form sb4 - Leadership Thank You Letter sb4 Addendum: 01/19/2025 14:36 Co-signature as Attending Physician, Angel Molina MD I agree with the assessment and c power plan of care. Signatures: Dispatcher [employer] EDMS Saige Rivas Corey, MD MD cha Lewis, Lynsay, RN RN ll1 Smitha Eduardo RN RN Clarisa Moore, PA-C PA-C sb4 Corrections: (The following items were deleted from the chart) 01/16 12:37 11:13 sb4 bd
[2025-01-16] MEDS ORDERED: HYDROCODONE/APAP 5/325 MG TAB PO PRN (12:27)
[2025-01-16] MEDS ORDERED: ONDANSETRON 4 MG/2 ML VIAL IV PRN (12:34)
--- NOTE | 2025-01-16 12:41 | P.HP ---
Certification for Inpatient Patient admitted to: Observation With expected LOS: <2 Midnights Patient will require the following post-hospital care: None Practitioner: I am a practitioner with admitting privileges, knowledge of patient current condition, hospital course, and medical plan of care. Services: Services provided to patient in accordance with Admission requirements found in Title 42 Section 412.3 of the Code of Federal Regulations Patient History Date of Service: 01/16/25 Reason for admission: Chest pain History of Present Illness: Patient is an 84-year-old male with a past medical history significant for hypertension, CAD, CABG, HLD, GERD who presents with complaint of chest pain onset this morning. Patient reported that He has been having chest pain intermittently for a while and followed up with his property underwriter who informed him that he has aortic stenosis and will need valve replacement after the patient had a heart cath 10 months ago. Patient reported that he sought a second opinion from another property underwriter who wanted to order some "Tests" before deciding on TAVR. Patient reported that this morning he had a sudden onset of chest pain located in the left chest area with radiation to the left arm and left shoulder. Patient rated pain as 10/10 in severity and described pain as aching in quality. Patient reported associated signs and symptoms of shortness of breath and diaphoresis. Patient denies any other signs and symptoms. Symptoms are aggravated or relieved by nothing. Patient decided to present to the hospital for medical evaluation. Allergies adhesive tape Allergy (Verified 03/29/24 14:07) Rash Iodinated Contrast Media Allergy (Verified 03/29/24 14:07) Anaphylaxis Home medications list reviewed: Yes Home Medications: Losartan Potassium 100 mg PO DAILY 06/18/20 Omeprazole 20 mg PO DAILY 06/18/20 Rosuvastatin [Crestor] 20 mg PO BEDTIME 06/18/20 Aspirin Chewable [Aspirin Chewable*] 81 mg PO DAILY 03/29/24 - Past Medical/Surgical History -: HTN -: GERD -: HLD -: CAD -: Coronary artery bypass graft; - Family History Family History: Reviewed- Non-Contributory - Social History Smoking Status: Never smoker Alcohol use: No CD- Drugs: No Caffeine use: No Place of Residence: Home Review of Systems General: Sweats Eyes: Unremarkable ENT: Unremarkable Respiratory: Shortness of Breath Cardiovascular: Chest Pain Gastrointestinal: Unremarkable Genitourinary: Unremarkable Musculoskeletal: Shoulder Pain, Arm Pain Integumentary: Unremarkable Neurological: Unremarkable Lymphatics: Unremarkable Physical Examination - Physical Exam General: Alert, In no apparent distress, Oriented x3, Cooperative HEENT: Atraumatic, PERRLA, Mucous membr. moist/pink, EOMI, Sclerae nonicteric Neck: Supple, 2+ carotid pulse no bruit, No LAD, Without JVD or thyroid abnormality Respiratory: Clear to auscultation bilaterally, Normal air movement Cardiovascular: No edema, Regular rate/rhythm, Normal S1 S2 Capillary refill: <2 Seconds Gastrointestinal: Normal bowel sounds, Non-distended, No tenderness Musculoskeletal: No clubbing, No contractures, Tenderness Integumentary: No rashes, No significant lesion Neurological: Normal gait, Normal speech, Normal strength at 5/5 x4 extr, Normal tone, Normal affect Lymphatics: No axilla or inguinal lymphadenopathy - Studies Laboratory Data (last 24 hrs) 01/16/25 01/16/25 01/16/25 09:08 09:08 09:08 WBC 12.40 H Hgb 14.9 Hct 43.6 Plt Count 158 PT 13.0 INR 1.16 Sodium 140 Potassium 3.7 BUN 11 Creatinine 0.95 Glucose 99 Magnesium 2.0 Total Bilirubin 0.6 AST 15 ALT 23 Alkaline Phosphatase 110 Assessment and Plan - Plan Chest pain Aortic stenosis --Serial troponins negative so far. --Cardiology consulted. Plans a TAVR --Telemetry to monitor for any significant arrhythmia. Hypertension --Poorly controlled. --Continue home medications --Hydralazine as needed for SBP greater than 160 mmHg. History of CAD\\CABG --Continue aspirin and statin. GERD\\HLD --Continue home medications. CKD 2. --Stable. --Will continue to monitor renal functions Leukocytosis --Likely reactive. --Will continue to monitor WBC level. DVT prophylaxis with heparin subQ Discharge Plan: Home Plan to discharge in: 48 Hours - Advance Directives Does patient have a Living Will: No Does patient have a Durable POA for Healthcare: No - Code Status/Comfort Care Code Status Assessed: Yes Physician Review: Patient Assessed, Agree with Above Assessment and Plan
[2025-01-16 13:49] VITALS: O2SAT 100
[2025-01-16 14:12] VITALS: BMI 25.0
[2025-01-16] MEDS: HYDRALAZINE HCL 20 MG/ML VIAL IV PRN (14:19)
[2025-01-16] MEDS: ACETAMINOPHEN 325 MG TABLET PO PRN (14:59)
[2025-01-16] MEDS: ROSUVASTATIN 10 MG TAB PO SCH (21:16)
[2025-01-16] MEDS: HEPARIN 5000 UNIT/ML 1 ML VIAL SQ SCH (21:16)
[2025-01-17 06:40] LABS: Absolute Lymphocytes (CBC) 2.0 K/uL (0.7-4.9); Hematocrit 40.7 % (39.6-49.0); Hemoglobin 14.2 g/dL (13.6-17.9); MCH 31.5 pg (27.0-35.0); MCHC 34.9 g/dL (32.0-36.0); MCV 90.3 fL (80-100); MPV 8.3 fL (7.6-11.3); Nucleated RBC Absolute Count 0.0 (0-0); Nucleated Red Blood Cells % 0.1 % (0-0); RBC Red Blood Cell Count 4.51 M/uL (4.33-5.43); White Blood Count 8.30 thou/uL (4.3-10.9)
[2025-01-17 06:55] LABS: Anion Gap 5.1 mEq/L (5.0-15.0); BUN Blood Urea Nitrogen 12.0 mg/dL (7-18); Glucose Level 102.0 mg/dL (74-106); Potassium 4.1 mEq/L (3.5-5.1)
[2025-01-17] MEDS: PANTOPRAZOLE 40MG TABLET PO SCH (08:20)
[2025-01-17] MEDS: LOSARTAN POTASSIUM 50 MG TABLET PO SCH (08:20)
[2025-01-17] MEDS: ASPIRIN 81 MG CHEWABLE TABLET PO SCH (08:20)
[2025-01-17 08:37] VITALS: BP 125/58; TEMP 97.9
[2025-01-17] MEDS ORDERED: HOME MED 1 EA UNK (Omeprazole [Omeprazole] 20 MG Capsule.Dr) PO SCH (09:00)
[2025-01-17] MEDS ORDERED: HOME MED 1 EA UNK (Losartan Potassium [Losartan Potassium] 100 MG Tablet) PO SCH (09:00)
--- NOTE | 2025-01-17 10:06 | P.DS ---
Admission Date: 01/16/25 Discharge Date: 01/17/25 Disposition: ROUTINE DISCHARGE Discharge Condition: GOOD Reason for Admission: Chest pain Consultations: Cardiology - Dr. Noel Brief History of Present Illness: 84yo M, PMH: hypertension, CAD, CABG, HLD, GERD Patient presents with complaint of chest pain onset this morning. Patient reported that He has been having chest pain intermittently for a while and followed up with his software release manager who informed him that he has aortic stenosis and will need valve replacement after the patient had a heart cath 10 months ago. Patient reported that he sought a second opinion from another software release manager who wanted to order some "Tests" before deciding on TAVR. Patient reported that this morning he had a sudden onset of chest pain located in the left chest area with radiation to the left arm and left shoulder. Patient rated pain as 10/10 in severity and described pain as aching in quality. Patient reported associated signs and symptoms of shortness of breath and diaphoresis. Patient denies any other signs and symptoms. Symptoms are aggravated or relieved by nothing. Patient decided to present to the hospital for medical evaluation. Hospital Course: Problem List: Chest pain, resolved Severe Aortic Stenosis CAD s/p CABG Hyperlipidemia Hypertension GERD Physician discharge instructions: Patient presented with chest pain and shortness of breath. Cardiac work up this hospitalization was negative: EKG was without any STEMI criteria. Troponins were negative x3. Chest xray on admission was negative for any acute findings, noted mild cardiomegaly. Patient reported he was feeling better by the next morning, chest pain resolved, wanting to go home. He was evaluated by Cardiology - Dr. Noel. No findings to warrant further inpatient workup / management. He does have known aortic stenosis which can contribute to these symptoms. Recommended follow up with his Billing Specialist to further discuss and undergo echocardiogram Medications: no change in meds. Follow up: PCP 3-5 days Cardiology Please call to schedule / confirm appointments Physical Exam: GEN: Alert, oriented, NAD CV: Regular rate and rhythm, no edema Pulm: Nonlabored respirations on room air, clear bilaterally ABD: soft, nontender, nondistended Neuro: Normal speech, normal affect Vital Signs/Physical Exam: Temp Pulse Resp BP Pulse Ox 97.9 F 53 16 125/58 L 97 01/17/25 08:00 01/17/25 08:00 01/17/25 08:00 01/17/25 08:00 01/17/25 08:00 Laboratory Data at Discharge: WBC 8.30 thou/uL (4.3-10.9) 01/17/25 06:29 Hgb 14.2 g/dL (13.6-17.9) 01/17/25 06:29 Hct 40.7 % (39.6-49.0) 01/17/25 06:29 Plt Count 153 thou/uL (152-406) 01/17/25 06:29 PT 13.0 SECONDS (10-13.0) 01/16/25 09:08 INR 1.16 01/16/25 09:08 Sodium 140 mEq/L (136-145) 01/17/25 06:29 Potassium 4.1 mEq/L (3.5-5.1) 01/17/25 06:29 BUN 12 mg/dL (7-18) 01/17/25 06:29 Creatinine 0.81 mg/dL (0.70-1.30) 01/17/25 06:29 Glucose 102 mg/dL (74-106) 01/17/25 06:29 Magnesium 2.0 mg/dL (1.6-2.4) 01/16/25 09:08 Total Bilirubin 0.6 mg/dL (0.2-1.0) 01/16/25 09:08 AST 15 U/L (15-37) 01/16/25 09:08 ALT 23 U/L (16-61) 01/16/25 09:08 Alkaline Phosphatase 110 U/L (45-117) 01/16/25 09:08 Home Medications: Losartan Potassium 100 mg PO DAILY 06/18/20 Omeprazole 20 mg PO DAILY 06/18/20 Rosuvastatin [Crestor*] 20 mg PO BEDTIME 06/18/20 Aspirin Chewable [Aspirin Chewable*] 81 mg PO DAILY 03/29/24 Nebivolol HCl [Bystolic] 1 tab PO DAILY 01/16/25 Physician Discharge Instructions: Physician discharge instructions: Patient presented with chest pain and shortness of breath. Cardiac work up this hospitalization was negative: EKG was without any STEMI criteria. Troponins were negative x3. Chest xray on admission was negative for any acute findings, noted mild cardiomegaly. Patient reported he was feeling better by the next morning, chest pain resolved, wanting to go home. He was evaluated by Cardiology - Dr. Noel. No findings to warrant further inpatient workup / management. He does have known aortic stenosis which can contribute to these symptoms. Recommended follow up with his Billing Specialist to further discuss and undergo echocardiogram Medications: no change in meds. Follow up: PCP 3-5 days Cardiology Please call to schedule / confirm appointments Followup: Angelica Pederson, PAC [Primary Care Provider] - Time spent managing pt's care (in minutes): 45
--- NOTE | 2025-01-17 11:52 | P.CNS ---
Date of Consult: 01/17/25 Chief Complaint: Chest pain History of Present Illness: Patient with PMH of CAD s/p CABG, severe , Presented with worsening HERNANDEZ, fatigue, denies chest pain, no palpitations, no syncope. Allergies adhesive tape Allergy (Verified 03/29/24 14:07) Rash Iodinated Contrast Media Allergy (Verified 03/29/24 14:07) Anaphylaxis Home medications list reviewed: Yes Home Medications: Losartan Potassium 100 mg PO DAILY 06/18/20 Omeprazole 20 mg PO DAILY 06/18/20 Rosuvastatin [Crestor*] 20 mg PO BEDTIME 06/18/20 Aspirin Chewable [Aspirin Chewable*] 81 mg PO DAILY 03/29/24 Nebivolol HCl [Bystolic] 1 tab PO DAILY 01/16/25 - Past Medical/Surgical History Diabetic: No -: HTN -: GERD -: HLD -: CAD -: Coronary artery bypass graft; - Social History Smoking Status: Never smoker Alcohol use: No CD- Drugs: No Caffeine use: No Place of Residence: Home Review of Systems 10-point ROS is otherwise unremarkable Physical Examination Temp Pulse Resp BP Pulse Ox 97.9 F 53 16 125/58 L 97 01/17/25 08:00 01/17/25 08:00 01/17/25 08:00 01/17/25 08:00 01/17/25 08:00 General: Alert, In no apparent distress HEENT: Atraumatic, PERRLA, Mucous membr. moist/pink, EOMI, Sclerae nonicteric Neck: Supple, 2+ carotid pulse no bruit, No LAD, Without JVD or thyroid abnormality Respiratory: Clear to auscultation bilaterally, Normal air movement Cardiovascular: Regular rate/rhythm, Normal S1 S2 Gastrointestinal: Normal bowel sounds, No tenderness Musculoskeletal: No tenderness Integumentary: No rashes Neurological: Normal gait, Normal speech, Normal tone, Normal affect Lymphatics: No axilla or inguinal lymphadenopathy - Problems (1) CAD (coronary artery disease) of artery bypass graft Status: Acute Plan: Patient had recent coronary angiogram that shown patent grafts. continue ASA and statins (2) Aortic stenosis Status: Acute Plan: invasive aortic valve assessment recently shown low flow gradient severe , LAVERNE 0.97 cm2, patient had another cardiac opinion and work was going to include echo, stress test and carotid duplex advised that we can have echo in office for follow up and decide about JACKSON no need for stress test at this time. (3) HTN (hypertension) Status: Acute Plan: continue home medications.
== END 2025-01-17 10:35 | disposition home or self-care (01) ==
LOC: ER 08:15 → ERHOLD 12:28 → 2ND 13:16
PROVIDERS: ADMIT Internal Medicine; ATTEND Hospitalist
DX: R07.9 Chest pain, unspecified (principal); I25.10 Atherosclerotic heart disease of native coronary artery without angina pectoris; I35.0 Nonrheumatic aortic (valve) stenosis; I10 Essential (primary) hypertension; E78.5 Hyperlipidemia, unspecified; K21.9 Gastro-esophageal reflux disease without esophagitis; R06.02 Shortness of breath; R61 Generalized hyperhidrosis; N18.2 Chronic kidney disease, stage 2 (mild); I51.7 Cardiomegaly; D72.829 Elevated white blood cell count, unspecified; Z95.1 Presence of aortocoronary bypass graft
CPT/HCPCS: 93005; 85025 ×2; 80048 ×2; 36415; 83735; 85610; 80076; 84484 ×3; 83880; 71045; 99285; J1644; J0360; G0378 ×3